=== PATIENT | female | born 1980 | race Caucasian/White ===

== ENCOUNTER 2021-07-27 09:16 | Outpatient (CLI) | payer MEDICARE, MEDICAID, SELFPAY ==
[2021-07-27] MEDS: Albuterol HFA 18 GM 200 PUFF INH IH (11:24)
[2021-07-27] MEDS: Inhaler, Assist Device 1 EACH MC (11:24)
--- NOTE | 2021-08-11 06:28 | W.PFT ---
Date of service: 06/27/21 Time of Service: 10:14 Pulmonary Function Test Result Requesting Provider Ken Ann Indications: Dyspnea Interpretation Spirometry: There is no airflow obstruction. There is no significant bronchodilator effect. Lung Volumes: Lung volumes are normal Diffusion Capacity: Diffusion is normal Airway Pressure: Airways resistance is normal. Impression Normal pulmonary function test Clinical Correlation therefore is recommended.
== END 2021-07-27 09:17 | disposition home or self-care (01) ==
LOC: RT 09:22
PROVIDERS: Visit Provider Surgery
DX: R06.09 Other forms of dyspnea (principal); Z86.79 Personal history of other diseases of the circulatory system; Z82.5 Family history of asthma and other chronic lower respiratory diseases
CPT/HCPCS: 94060; 94726; 94729

== ENCOUNTER 2022-02-27 15:48 | Outpatient (REF) | payer MEDICARE, MEDICAID, SELFPAY ==
--- OUTSIDE RECORDS SUMMARY | 2022-02-27 15:51 | XMS_ITS ---
:1980 Author Care Team Providers Name Role Phone BEATRIZ BUTLER Primary Care Provider [phone] MARY ELLEN RAVI MD General Surgeon [phone] Allergies Code Code System Name Reaction Severity Status Onset Adhesive Tape ? ? Active ? Bleach (Sodium ? ? Active ? Hypochlorite) 4053 RxNorm Erythromycin Base ? ? Active ? Fish Containing ? ? Active ? Products 6496698 RxNorm Latex ? ? Active ? 449646 RxNorm Milk ? ? Active ? Penicillins ? ? Active ? 5607590 RxNorm Trintellix Itching Moderate to Active ? Severe Medications Name Status Start Date Stop Date ? ? Adderall XR 15 mg capsule,extended release Completed 11/0308/31/2010 1 (one) Capsule ER 24HR: QD Advair HFA 115 mcg-21 mcg/actuation aerosol inhaler Completed ? 12/06/2020 Inhale 2 puffs twice a day by inhalation route for 30 days. albuterol sulfate Completed ? 01/06/2020 one inhalation every 4 hours as needed. albuterol sulfate 0.083 % nebu Completed ? 0 03/11/2020 albuterol sulfate 2.5 mg/3 mL (0.083 %) solution for nebulizatio n Active ? Not available 3 mL nebulization q4-6h PRN cough albuterol sulfate HFA 90 mcg/actuation aerosol inhaler Active ? Not available Inhale 2 puffs every 4-6 hours by inhalation route for 30 days. Maryam Allergy Completed ? 08/07/2021 amlodipine 2.5 mg tablet Completed 08/06/2014 014 1 (one) Tablet Tablet: daily azithromycin 250 mg tablet Completed ? 07/24 Bactrim DS 800 mg-160 mg tablet Completed ? 01/10/2022 1 (one) Tablet: BID for 3 days benzonatate 200 mg capsule Completed ? 08/17 Take 1 capsule 3 times a day by oral route for 10 days. cefuroxime axetil 250 mg tablet Completed 12/17/2016 12/24/2016 1 (one) Tablet: bid - twice daily cefuroxime axetil 500 mg tablet Completed ? 12/16/2019 Celexa 20 mg tablet Completed 11/03/2009 08/31/2010 1 (one) Tablet: daily cephalexin 250 mg capsule Completed 12/01/20142014 1 (one) Capsule: every 6 hours cephalexin 500 mg tablet Completed ? 022 1 (one) Tablet QID x 7 days cholecalciferol (vitamin D3) 50 mcg (2,000 unit) tablet Active ? Not available Take 1 tablet every day by oral route for 90 days. Cipro 250 mg tablet Completed ? 07/06/2021 Take 1 tablet twice a day by oral route for 3 days. ciprofloxacin 500 mg tablet Completed ? 12/29 1 (one) Tablet: every 12 hours x 5 days Cleocin HCl 300 mg capsule Completed 12/05/200912/12 1 (one) Capsule: daily clindamycin 2 % vaginal cream Completed 07/05/2014 1 (one) Cream: qhs - at bedtime clindamycin HCl 150 mg capsule Completed ? 0 11/14/2018 Take 1 capsule every 6 hours by oral route for 10 days. clotrimazole Completed ? 05/25/2019 2% cream clotrimazole 1 % topical cream Completed ? 0 03/27/2021 APPLY TO THE AFFECTED area x BID x 5 days Compazine 10 mg tablet Completed 01/15/2015 6 1 (one) Tablet Tablet: three times daily, as needed cyclobenzaprine Completed ? 03/25/2018 10mg daily cyclobenzaprine 10 mg tablet Completed ? 05/2019 Take 1 tablet every day by oral route at bedtime for 6 days. Depo-Provera 150 mg/mL intramuscular suspension Completed 03/17/2009 03/17/2009 desvenlafaxine succinate ER 50 mg Completed ? 09/14/2019 tablet,extended release 24 hr DILT-XR 120 mg capsule, extended release Completed ? 11/05/2019 diltiazem CD 180 mg capsule,extended release 24 Completed ? 11/26/2019 hr diltiazem CD 240 mg capsule,extended release 24 hr Completed ? 12/16/2019 Take 1 capsule every day by oral route. diltiazem ER 240 mg capsule,24 hr,extended Active ? Not available release diltiazem hcl er 240 mg cp24 Completed ? 08/2020 doxycycline hyclate 100 mg tablet Completed 12/28/2014 01/07/2015 1 (one) Tablet: every 12 hours Effexor XR 37.5 mg capsule,extended release Completed 04/0105/08/2006 1 (one) Cap SR 24HR: Daily Effexor XR 75 mg capsule,extended release Completed ? 12/28/2020 Take 1 capsule every day by oral route for 90 days. Estrace 0.01% (0.1 mg/gram) vaginal cream Completed 200807/27/200910/01 applicator(s): shoshana famotidine 40 mg tablet Completed ? 10/16/19 Take 1 tablet twice a day by oral route for 30 days. Fioricet 50 mg-300 mg-40 mg capsule Completed 11/03/2015 11/18/2015 1 (one) Capsule: every four hours, as needed for headache Flagyl 375 mg capsule Completed 03/11/2012 03/18/2012 1 Capsule: tid - three times a day Flonase Completed 09/15/2021 10/05/2021 Flovent Diskus 100 mcg/actuation powder for inhalation Completed 03/25/2012 03/25/2012 1 Aero Pow Br Act: bid - twice daily fluconazole 150 mg tablet Active ? Not av ailable Take 1 tablet every other day by oral route for 2 days. fluticasone 100 mcg-salmeterol 50 mcg/dose blistr powdr for inha lation Active ? Not available INHALE ONE PUFF BY MOUTH TWICE A DAY fluticasone propionate 50 mcg/act susp Completed ? 03/11/2020 fluticasone propionate 50 mcg/actuation nasal spray,suspension A ctive ? Not available [place] 2 sprays twice a day by intranasal route as needed for 30 days. gabapentin 600 mg tablet Active ? Not eliseo ilable Gardasil (PF) [id number]/0.5mL intramuscular prince spension Completed 05/11/2008 08/12/2008 1 (one) INJECTION: Once Guaifenesin AC 10 mg-100 mg/5 mL oral liquid Completed 03/11/2012 5-10 ml Syrup: every 4 to 6 hours as needed for cough hydrocodone 5 mg-acetaminophen 325 mg tablet Completed 08/201301/09/2013 1 (one) Tablet: every four to six hours as needed hydrocortisone acetate 25 mg rectal suppository Unknown ? Not available Insert 1 suppository 4 times a day by rectal route for 7 days. hydroxyzine pamoate Completed ? 12/12/2020 25mg po at HS as needed hydroxyzine pamoate 25 mg capsule Completed ? 12/16/2019 Imitrex 25 mg tablet Completed 11/29/2010 12/13/2010 1 (one) Tablet: daily as needed Keflex 500 mg capsule Completed ? 01/06/2019 1 Capsule every 6 hours for 5 days levothyroxine 100 mcg tablet Completed ? 03/2021 Take 1 tablet every day by oral route for 90 days. levothyroxine 112 mcg tablet Active ? Not available Take 1 tablet every day by oral route for 90 days. levothyroxine 125 mcg tablet Active ? Not available Take 1 tablet every day by oral route for 30 days. levothyroxine 137 mcg tablet Completed ? 05/2022 Take 1 tablet every day by oral route for 90 days. levothyroxine 88 mcg tablet Completed ? 03/30 levothyroxine sodium 112 mcg tabs Completed ? 04/15/2020 1 tablet po daily Lice Treatment (permethrin) 1 % topical liquid Completed 0 11/15/2011 03/11/2012 1 Lotion: as needed lidocaine 5 % topical ointment Active ? N ot available APPLY TO AFFECTED AREA(S) BY TOPICAL ROUTE 1-4 TIMES DAILY N EEDED Lidocaine Viscous 2 % mucosal solution Completed 1 10/05/2011 15 Milliliter(s): every four hours, as needed Loestrin Fe 10/19 (28-Day) 1 mg-20 mcg (21)/75 mg (7) tablet Completed 08/21/2013 08/21/2013 1 Tablet: daily loratadine Completed ? 10/06/2020 loratadine 10 mg tablet Completed 02/06/2017 02/16/20 17 1 (one) Tablet: daily lorazepam 1 mg tablet Completed 01/17/2016 01/17/2016 1 (one) Tablet: two times daily, as needed Macrobid 100 mg capsule Completed ? 01/11/20 22 1 Capsule: every 12 hours meloxicam 15 mg tablet Completed 08/31/2010 0 1 (one) Tablet: daily, as needed methylphenidate 20 mg tablet Active 07/06/2021 Not available Take 1 tablet twice a day by oral route. methylphenidate hydrochloride 20 mg tabs Active ? Not available metoprolol succinate ER 25 mg tablet,extended Active ? Not available release 24 hr Metrogel Vaginal 0.75 % Completed 12/18/2013 12/24/19 14 1 (one) Applicatorful: at bedtime metronidazole 500 mg tablet Completed ? 02/2022 1 (one) Tablet: two times daily for 7 days nabumetone 500 mg tablet Completed 01/17/2010 010 1 (one) Tablet: two times daily, as needed for ankle pain naproxen 375 mg tablet Completed 02/17/2014 4 1 (one) Tablet Tablet: every six hours, as needed nifedipine 10 mg capsule Completed ? 018 Take 1 capsule every day by oral route. NuvaRing 0.12 mg-0.015 mg/24 hr vaginal Completed 03/17/20 09 03/17/2009 1 (one) Ring: every month nystatin 100,000 unit/gram topical cream Completed 011 11/15/2011 apply Cream: three times daily nystatin 100,000 unit/gram topical powder Active ? Not available APPLY TO THE AFFECTED AREA 2 TIMES PER DAY nystatin 100,000 unit/mL oral suspension Completed 014 02/25/2014 1 (one) Teaspoon: qid - four times a day omeprazole 40 mg capsule,delayed release Completed ? 10/05/2021 TAKE 1 CAPSULE BY MOUTH ONCE DAILY ondansetron HCl 4 mg tablet Active ? Not available Ortho Evra 150 mcg-35 mcg/24 hr transdermal patch Completed 02/21/2010 08/31/2010 1 Patch WK: QW oxycodone-acetaminophen 5 mg-325 mg tablet Completed 04/0905/15/2016 1 (one) Tablet: Every six hours, as needed pantoprazole 40 mg tablet,delayed release Active ? Not available Take 1 tablet every day by oral route for 90 days. Phenergan 25 mg rectal suppository Completed 11/03/2009 12/05/2009 1 (one) Suppository: as needed polyethylene glycol 3350 17 gram/dose oral powder Active ? Not available TAKE 17 GRAMS ONCE DAILY FOR 90 DAYS polymyxin B sulfate 10,000 unit-trimethoprim 1 Completed ? 07/07/2019 mg/mL eye drops prednisone 10 mg tablet Completed 06/07/2016 06/12/20 16 1 (one) Tablet: See comments prednisone 20 mg tablet Completed 05/01/2017 05/10/20 17 1 (one) Tablet: qam - every morning Prilosec OTC 20 mg tablet,delayed release Completed 200703/04/2008 1 (one) Tablet DR: daily Pyridium 200 mg tablet Completed 05/03/2016 6 1 (one) Tablet: every eight hours, as needed quetiapine fumarate 50 mg tabs Completed ? 0 03/11/2020 Risperdal 1 mg tablet Completed 10/22/2014 11/10/2014 1 (one) Tablet: at bedtime rizatriptan 10 mg tablet Active ? Not eliseo ilable Seroquel 100 mg tablet Active 10/05/2021 Not avail able Take 1 tablet every day by oral route at bedtime. Seroquel 25 mg tablet Completed 09/26/2011 03/11/2012 1 (one) Tablet: as needed Seroquel 50 mg tablet Completed ? 10/05/2021 Take 1 tablet every day by oral route for 90 days. Singulair 10 mg tablet Completed 11/03/2009 0 1 (one) Tablet: daily Symbicort 160 mcg-4.5 mcg/actuation HFA aerosol Completed ? 04/14/2020 inhaler Terazol 3 0.8 % vaginal cream Completed 05/06/2013 1 Cream: QHS vaginally x 3 nights Terazol 7 0.4 % vaginal cream Completed 01/16/2007 1 (one) Applicator(s): QHS / HS Topamax 25 mg tablet Completed 11/10/2014 01/18/2015 one Tablet: at bedtime tramadol 50 mg tablet Completed 07/05/2014 07/10/2014 1 (one) Tablet: every 8 hours as needed trazodone 50 mg tablet Completed 05/08/2006 7 1 (one) Tablet: qhs / HS Trintellix 10 mg tablet Completed ? 07/06/20 21 Take 1 tablet every day by oral route for 30 days. venlafaxine ER 150 mg capsule,extended release Completed ? 12/16/2019 24 hr venlafaxine hcl er 150 mg cp24 Completed ? 0 03/11/2020 venlafaxine hydrochloride er 75 mg cp24 Completed ? 03/11/2020 Vistaril 50 mg capsule Completed 10/30/2007 8 1 (one) Cap: QHS / HS Wellbutrin XL 150 mg 24 hr tablet, extended release Completed 10/09/2005 01/11/2006 1 (one) Tab SR 24HR: BID Xopenex HFA 45 mcg/actuation aerosol inhaler Completed 06/25/2012 1-2 (one to two) Puff(s): Every 4 to 6 hours as needed Xyzal Completed ? 06/07/2020 Michelle (28) 3 mg-0.03 mg tablet Completed 11/21/2004 04/29/2006 1 (one) Tablet: QD REBECCA (28) 3 mg-0.02 mg tablet Completed 06/26/200611/2005 1 Tablet: daily Zantac 150 mg tablet Completed 05/14/2011 08/12/2011 1 Tablet: bid - twice daily Zoloft 100 mg tablet Completed 04/14/2008 08/12/2008 1 (one) Tablet: Daily zolpidem 10 mg tablet Active ? Not availa ble zolpidem 5 mg tablet Completed ? 06/08/2019 Take 1 tablet every day by oral route. zolpidem tartrate 10 mg tabs Completed ? 08/2020 Problems Name Status Onset Date Source ? Localized Enlarged Lymph Nodes Unknown 06/22/2019 ? Palpitations Unknown 09/14/2019 ? Multinodular Goiter Unknown 10/06/2019 ? Cervical Lymphadenopathy Active 10/06/2019 ? Nausea Unknown 04/09/2020 ? Postoperative Hypothyroidism Active 04/14/2020 ? Plantar Fasciitis Active 07/30/2020 ? Candidiasis of Skin Active 12/28/2020 ? Paroxysmal Supraventricular Tachycardia Active 01/10/20 21 ? Pleural Effusion Active 01/09/2021 ? Sleep Disorder Active 01/09/2021 ? Malaise and Fatigue Active 01/09/2021 ? Dyspnea at Rest Active 01/09/2021 ? Persistent Cough Active 01/09/2021 ? Cough Unknown 02/23/2021 ? Gastro-esophageal Reflux Disease with Esophagitis Active 10/16/2021 ? Streptococcal Sore Throat Unknown ? Histor y Psychoactive Substance Abuse Active ? His tory Depressive Disorder Active ? History Attention Deficit Hyperactivity Disorder Active ? History Migraine Unknown ? History Migraine with Aura Active ? History Raynaud's Disease Active ? History Allergic Rhinitis Unknown ? History Posterior Rhinorrhea Unknown ? History Mild Intermittent Asthma Active ? History Acute Exacerbation of Asthma Unknown ? His tory Urinary Tract Infectious Disease Unknown ? History Cervical Intraepithelial Neoplasia Grade 1 Unknown ? History Cervical Intraepithelial Neoplasia Grade 2 Active ? History Backache Unknown ? History Tremor Unknown ? History Dysuria Unknown ? History Abdominal Pain Unknown ? History Contusion of Back Unknown ? History Exposure to Viral Hepatitis Unknown ? Hist ory High Risk Heterosexual Behavior Unknown ? History Venereal Disease Screening Unknown ? Histo ry Cytologic Finding Unknown ? History Pelvic and Perineal Pain Unknown ? History Lesion of Oral Mucosa Unknown ? History Amblyopia of Right Eye Unknown ? History Procedure by Method Unknown ? History Follow-up Visit Unknown ? History Procedures Date Name Performed by ? 04/04/2016 [facility] Uterus 250 g or Less Information not available Notes: Total laparoscopic hysterectomy, bilateral salpingectomy, USVVS: LILIA II, Uterine Prolapse 06/17/2015 Conization of Cervix Information not eliseo ilable Notes: Cone biopsy: LILIA 2 with clear m argins. 02/25/2013 Diag Laparo Separate Proc Information no t available Notes: Lysis of adhesions 06/26/2010 Rhinoplasty Information not avai lable 09/30/2004 Delivery Information not avai lable Notes: 02/09/2008 elec repeat; 08/15/20 11 elec repeat with T/L ? Removal of Thyroid Information not avai lable ? Tonsilectomy/adenoids Information not av ailable ? Hernia Repair Information not avai lable ? Leep Information not avai lable Notes: 08/16/08 with IUD removal 01/06/2019 US, Echocardiogram [facility]Internal[facility] [address] [place], [place] [id number] (Work Place) 05/25/2019 US, Head + Neck, Soft Tissue [facility] Radiology (Internal) [address] [place] [address] (Work Place) 06/03/2019 CT, Neck, Soft Tissue, W/ Contrast [facility] Radiology (Internal) [address] [place] [address] (Work Place) 09/14/2019 Holter Monitor [facility] Cardio pulmonary [address] [place] [address] (Work Place) 01/09/2021 CT, Chest, W/wo Contrast [facility] Radiology (Internal) [address] [place] [address] (Work Place) 01/20/2021 CT, Chest, W/ Contrast [facility] pital Radiology (Internal) [address] [place] [address] (Work Place) 08/18/2021 CT, Chest, W/ Contrast [facility] Radiology (Internal) [address] [place] [address] (Work Place) 08/07/2021 XR, Foot, 3 or More View [facility] (Internal) [address] [place] [address] (Work Place) 01/31/2022 XR, Ankle, 3 or More View [facility] Radiology (Internal) [address] [place] [address] (Work Place) 02/01/2022 XR, Esophagram [facility] [address] [place] [address] (Work Place) 02/09/2022 XR, Esophagram Xray [facility] [address] [place] [address] (Work Place) Results Lab Results Date Name Specimen Result Interpretation Description Value Range Status Address ? 01/15/2022 TSH, Serum S Low Tsh 0.01 uIU/mL 0.36-3.74 F inal [place] or Plasma uIU/mL [facility] L ab (Internal) : [address] t 01/15/2022 T4, Free, S High Ft4 1.65 NG/dL 0.76-1.46 Fin [facility] Serum NG/dL [facility] L ab (Internal) : [address] 11/13/2021 Urinalysis, ? Color Yellow ? ? P _nc Primary Dipstick, Care Reflex [place] ns: [address], [place] ? ? ? Appeara Cloudy ? ? P_nc Kathy mechelle nce Care [place] ns: [address], [place] ? ? ? Glucose Normal ? ? P_nc Kathy mechelle Care [place] ns: [address], [place] ? ? ? Bilirub Small ? ? P_nc Kathy mechelle in Care [place] ns: [address], [place] ? ? ? Ketones Trace ? ? P_nc Kathy mechelle Care [place] ns: [address], [place] ? ? ? Specifi 1.030 ? ? P_nc Kathy mechelle c Care Webb [place] [facility] ns: [address], [place] ? ? ? Blood Negative ? ? P_nc Kathy mechelle Care [place] ns: [address], [place] ? ? ? Ph 5.0 ? ? P_nc Prima ry Care [place] ns: [address], [place] ? ? ? Protein 1+ ? ? P_nc Kathy mechelle Care [place] ns: [address], [place] ? ? ? Urobili 1 ? ? P_nc Kathy mechelle yañezen Care [place] ns: [address], [place] ? ? ? Nitrite positive ? ? P_nc P rimary Care [place] ns: [address], [place] ? ? ? Leukocy Trace ? ? P_nc Kathy mechelle te Care Esterase [place] ns: [address], [place] 11/08/2021 BMP, Serum S ? g/r 98 mg/dL 74-106 Final [place] or Plasma mg/dL [facility] L ab (Internal) : [address] ? ? S ? Bun 16 mg/dL 7-18 mg/dL Final Nort h [facility] L ab (Internal) : [address] ? ? S ? Crea 0.7 mg/dL 0.6-1.0 Final [place] mg/dL [facility] L ab (Internal) : [address] ? ? S ? Ca 8.9 mg/dL 8.5-10.1 Final [place] mg/dL [facility] L [facility] (Internal) : [address] ? ? S ? Na 138 mmol/L 136-145 Final [place] mmol/L [facility] L [facility] (Internal) : [address] ? ? S ? K 3.9 mmol/L 3.5-5.1 Final [place] mmol/L [facility] L [facility] (Internal) : [address] ? ? S ? Cl 103 mmol/l 98-107 Final [place] mmol/l [facility] L [facility] (Internal) : [address] ? ? S ? Tco2 29.4 mmol/L 21.0-32.0 Final No rth mmol/L [facility] L [facility] (Internal) : [address] t 11/08/2021 CBC W/ Auto BLD ? Wbc 7.7 10*3/uL 5.0-10.0 F inal [place] Diff 10*3/uL [facility] L [facility] (Internal) : [address] t ? ? BLD ? Rbc 4.61 4.10-5.30 Final [place] 10*6/uL 10*6/uL [facility] L [facility] (Internal) : [address] t ? ? BLD ? Hgb 13.2 g/dL 12.0-16.0 Final Nort h g/dL [facility] L ab (Internal) : [address] t ? ? BLD ? Hct 39.5 % 37.0-47.0 % Final [facility] L ab (Internal) : [address] t ? ? BLD ? Mcv 85.7 fL 80.0-96.0 Final [facility] L ab (Internal) : [address] t ? ? BLD ? Mch 28.6 pg 26.0-32.0 Final [facility] L ab (Internal) : [address] ? ? BLD ? Mchc 33.4 g/dL 31.0-35.0 Final Nort h g/dL [facility] L [facility] (Internal) : [address] [place] ? ? BLD ? Rdw 13.0 % 11.5-14.5 % Final [facility] ab (Internal) : [address] [place] ? ? BLD ? Plt 300 10*3/uL 130-450 [facility] L [facility] (Internal) : [address] [place] ? ? BLD ? Anc 5.56 ? Final [place] 10*3/uL [facility] ab (Internal) : [address] , [place] ? ? BLD High Nlr 4.12 0.00-3.20 Final [facility] ab (Internal) : [address] [place] ? ? BLD ? Neutro 72.2 % 40.0-75.0 % Final [facility] ab (Internal) : [address] ? ? BLD Low Lymph 17.5 % 20.0-50.0 % Final [facility] ab (Internal) : [address] [place] ? ? BLD ? Stanton 7.8 % 2.0-10.0 % Final [facility] ab (Internal) : [address] [place] ? ? BLD ? Eos 1.4 % 1.0-6.0 % Final [facility] ab (Internal) : [address] ? ? BLD ? Baso 0.5 % 0.0-1.0 % Final [facility] ab (Internal) : [address] ? ? BLD ? Ig 0.6 % 0.0-0.9 % Final [facility] ab (Internal) : [address] t 11/08/2021 Culture UR ? Final microbiolog ? Final [place] ([place] y results Countr y Count) Hospital Lab Urine (Internal) : [address] t 11/08/2021 HSV (1+2) MISC ? Hsv 1 negative negative Final [place] DNA, Qual, DNA Countr y PCR, Result Hospital L ab Unspecified (Inte rnal): Specimen [address] ? ? MISC ? Hsv 2 negative negative Final [place] DNA Country Result Hospital L ab (Internal) : [address] [facility] t 11/08/2021 CT RNA, MISC ? Chlamyd negative negative Final [place] Qual, PCR, ia Countr y Unspecified Result Hospi nikos Lab Specimen (Interna l): [address] [facility] t ? ? MISC ? GC negative negative Final [place] Result [facility] L ab (Internal) : [address] [facility] 10/13/2021 T4, Free, S High Ft4 1.54 NG/dL 0.76-1.46 Fin al [place] Serum NG/dL [facility] L ab (Internal) : [address] [facility] 10/13/2021 TSH, Serum S Low Tsh 0.03 uIU/mL 0.36-3.74 F inal [place] or Plasma uIU/mL [facility] L ab (Internal) : [address] [facility] 10/13/2021 Venipunctur Blood ? Locatio Right ? ? P_nc Primary e venous n Antecubital Care [place] ns: [address], [place] ? ? Blood ? Needle 21g ? ? P_nc Prim shiva venous Vacutainer Care [place] ns: [address], [place] ? ? Blood ? Number 1 ? ? P_nc Prim shiva venous of Care Attempts [place] [facility]: [address], [place] ? ? Blood ? Success Yes ? ? P_nc Kathy mechelle venous ful Care [place] ns: [address], [place] ? ? Blood ? Dressin Pressure ? ? P_nc P rimary venous g Band-aid Care Applied [place] [facility] ns: [address], [place] ? ? Blood ? Initial DG ? ? P_nc Kathy mechelle venous s Care [place] ns: [address], [place] 08/17/2021 Thyroid S Low Tsh 0.09 uIU/mL 0.36-3.74 Nena l [place], uIU/mL [facility] Serum Hospital L ab (Internal) : [address] [facility] 08/17/2021 T4, Free, S High Ft4 1.68 NG/dL 0.76-1.46 Fin al [place] Serum NG/dL [facility] (Internal) : [address] t 08/17/2021 Venipunctur ? Locatio Right ? ? P_nc Primary e n Antecubital Care [place] [facility] ns: [address], [place] ? ? ? Needle 21g ? ? P_nc Prim shiva Vacutainer Care [place] [facility] ns: [address], [place] ? ? ? Number 1 ? ? P_nc Prim shiva of Care Attempts [place] [facility] ns: [address], [place] ? ? ? Success Yes ? ? P_nc Kathy mechelle ful Care [place] [facility] ns: [address], [place] ? ? ? Dressin Pressure ? ? P_nc P rimary g Band-aid Care Applied [place] [facility]: [address], [place] ? ? ? Initial HJ ? ? P_nc Kathy min s Care [place] [facility] ns: [address], [place] 05/22/2021 Hepatitis C S ? Hep C negative negative Nena Pat[facility] Virus Ab, Ab W Rfx Count ry Serum PCR Hospital L ab (Internal) : [address] 05/22/2021 HIV (1+2) S ? HIV 1/2 negative negative Nena Pat[facility] Ab Screen, Antigen Count ry Serum and Hospital L ab Antibody (Interna l): [address] t 05/08/2021 Thyroid S High Tsh 5.41 0.47-4.68 Final No rth [place], u[IU]/mL u[IU]/mL Coun try Serum Hospital L ab (Internal) : [address] t 05/08/2021 T4, Free, S ? Ft4 1.11 NG/dL 0.78-2.19 Fin al [place] Serum NG/dL [facility] L ab (Internal) : [address] t 02/23/2021 CBC W/ Auto BLD ? Wbc 6.3 10*3/uL 5.0-10.0 F inal [place] Diff 10*3/uL [facility] L ab (Internal) : [address] t ? ? BLD ? Rbc 4.87 4.10-5.30 Final [place] 10*6/uL 10*6/uL [facility] (Internal) : [address] , [place] ? ? BLD ? Hgb 13.9 g/dL 12.0-16.0 Final Nort h g/dL [facility] L ab (Internal) : [address] , [place] ? ? BLD ? Hct 43.0 % 37.0-47.0 % Final [facility] L ab (Internal) : [address] ? ? BLD ? Mcv 88.3 fL 80.0-96.0 Final [facility] L ab (Internal) : [address] , [place] ? ? BLD ? Mch 28.5 pg 26.0-32.0 Final [facility] L ab (Internal) : [address] , [place] ? ? BLD ? Mchc 32.3 g/dL 31.0-35.0 Final Nort h g/dL [facility] L ab (Internal) : [address] ? ? BLD ? Rdw 13.2 % 11.5-14.5 % Final [facility] ab (Internal) : [address] ? ? BLD ? Plt 296 10*3/uL 130-450 Final Nort h 10*3/uL [facility] L ab (Internal) : [address] ? ? BLD ? Anc 3.95 ? Final [place] 10*3/uL [facility] L ab (Internal) : [address] ? ? BLD ? Nlr 2.28 0.00-3.20 Final [facility] ab (Internal) : [address] ? ? BLD ? Neutro 62.6 % 40.0-75.0 % Final Nort [facility] Hospital L ab (Internal) : [address] [place] ? ? BLD ? Lymph 27.4 % 20.0-50.0 % Final [facility] ab (Internal) : [address] [place] ? ? BLD ? Stanton 6.3 % 2.0-10.0 % Final [facility] ab (Internal) : [address] ? ? BLD ? Eos 2.9 % 1.0-6.0 % Final [facility] L ab (Internal) : [address] t ? ? BLD ? Baso 0.5 % 0.0-1.0 % Final [facility] L ab (Internal) : [address] t ? ? BLD ? Ig 0.3 % 0.0-0.9 % Final [facility] L ab (Internal) : [address] 02/23/2021 TSH, Serum S High Tsh 8.59 0.47-4.68 Final North or Plasma u[IU]/mL u[IU]/mL [facility] L ab (Internal) : [address] 02/23/2021 CMP, Serum S High g/r 113 mg/dL 74-106 Final North or Plasma mg/dL [facility] L ab (Internal) : [address] t ? ? S ? Bun 17 mg/dL 7-17 mg/dL Final Nort h [facility] L ab (Internal) : [address] t ? ? S ? Crea 0.70 mg/dL 0.52-1.04 Final Nor th mg/dL [facility] L ab (Internal) : [address] t ? ? S ? Ca 9.4 mg/dL 8.4-10.2 Final North mg/dL [facility] L ab (Internal) : [address] t ? ? S ? Na 143 mmol/L 137-145 Final North mmol/L [facility] L ab (Internal) : [address] t ? ? S ? K 3.7 mmol/L 3.5-5.1 Final North mmol/L [facility] L ab (Internal) : [address] t ? ? S High Cl 108 mmol/L 98-107 Final North mmol/L [facility] L ab (Internal) : [address] t ? ? S ? Tco2 23.0 mmol/L 22.0-30.0 Final No rth mmol/L [facility] L ab (Internal) : [address] t ? ? S ? Tp 7.4 g/dL 6.3-8.2 Final North g/dL [facility] L ab (Internal) : [address] t ? ? S ? Alb 4.0 g/dL 3.5-5.0 Final [place] g/dL [facility] L ab (Internal) : [address] t ? ? S ? Tbil 0.3 mg/dL 0.2-1.3 Final [place] mg/dL [facility] L ab (Internal) : [address] t ? ? S ? Alp 86 U/L 50-136 U/L [facility] L ab (Internal) : [address] t ? ? S ? Alt 17 U/L 9-52 U/L [facility] (Sgpt) [facility] L ab (Internal) : [address] t ? ? S High Ast 52 U/L 14-36 U/L [facility] (Sgot) [facility] L ab (Internal) : [address] 02/23/2021 T4, Free, S ? Ft4 0.98 NG/dL 0.78-2.19 [facility] Serum NG/dL [facility] L ab (Internal) : [address] 02/23/2021 Alpha-1-Ant S ? Alpha 1 124 mg/dL 90-200 [facility] itrypsin Antitryp mg/dL Countr y (Aat), QN, sin Hospit al Lab Serum (Internal) : [address] 02/23/2021 T3, Total, S ? T3, 137 NG/dL 97-169 [facility] Serum Total NG/dL [facility] L ab (Internal) : [address] 02/23/2021 Tick-borne BLD ? Babesia negative negative [facility] ([facility] : [address] t ? ? BLD ? Babesia negative negative Final Nort h Duncani [facility] L ab (Internal) : [address] t ? ? BLD ? Babesia negative negative Final Nort h divergen [facility] L ab (Internal) : [address] t ? ? BLD ? Anaplas negative negative Final Nort h ma [facility] Lab ophilum (Internal ): [address] t ? ? BLD ? Pee negative negative Final Nort h ia [facility] Lab sis (Internal) : [address] t ? ? BLD ? Pee negative negative Final Nort h ia [facility] Lab canis (Internal) : [address] t ? ? BLD ? Pee negative negative Final Nort h ia [facility] Lab ensis (Internal) : [address] ? ? BLD ? B. negative negative Final North [place] [facility] i PCR, B Hospital Lab (Internal) : [address] 02/23/2021 Borrelia S ? Lyme negative negative Final North [place] Antibody Cou ntry Ab, [facility] Lab Immunoassay (Inte rnal): , Serum [address] 12/12/2020 D-dimer, PLASMA ? Dimq 0.40 mg/L 0.00-0.50 Final North Quant, mg/L [facility] L ab (Internal) : [address] 12/12/2020 BNP (B-type S ? 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 Locatio Left ? ? P_nc Primary e n Antecubital Care [place]l [place] ns: [address], [place] ? ? ? Needle 21g ? ? P_nc Prim shiva Vacutainer Care [place]: [address], [place] ? ? ? Number 1 ? ? P_nc Prim shiva of Care Attempts [place] rlea ns: [address], [place] ? ? ? Success Yes ? ? P_nc Kathy mechelle ful Care [place] ns: [address], [place] ? ? ? Dressin Pressure ? ? P_nc P rimary g Band-aid Care Applied [place] beth ns: [address], [place] ? ? ? Initial LMK ? ? P_nc Kathy mechelle s Care [place] ns: [address], [place] 10/04/2020 CBC W/ Auto BLD ? Wbc 6.6 10*3/uL 5.0-10.0 F inal [place] Diff 10*3/uL [facility] L ab (Internal) : [address] t ? ? BLD ? Rbc 4.88 4.10-5.30 Final [place] 10*6/uL 10*6/uL [facility] L ab (Internal) : [address] ? ? BLD ? Hgb 14.0 g/dL 12.0-16.0 Final Nort h g/dL [facility] L ab (Internal) : [address] ? ? BLD ? Hct 43.2 % 37.0-47.0 % Final [facility] L ab (Internal) : [address] ? ? BLD ? Mcv 88.5 fL 80.0-96.0 Final [facility] L ab (Internal) : [address] ? ? BLD ? Mch 28.7 pg 26.0-32.0 Final [facility] L ab (Internal) : [address] ? ? BLD ? Mchc 32.4 g/dL 31.0-35.0 Final Nort h g/dL [facility] L ab (Internal) : [address] ? ? BLD ? Rdw 13.2 % 11.5-14.5 % Final [facility] L ab (Internal) : [address] ? ? BLD ? Plt 253 10*3/uL 130-450 Final Nort h 10*3/uL [facility] L ab (Internal) : [address] ? ? BLD ? Anc 4.18 ? Final [place] 10*3/uL [facility] L ab (Internal) : [address] ? ? BLD ? Nlr 2.49 0.00-3.20 Final [facility] L ab (Internal) : [address] t ? ? BLD ? Neutro 63.5 % 40.0-75.0 % Final Nort [facility] Hospital L ab (Internal) : [address] ? ? BLD ? Lymph 25.5 % 20.0-50.0 % Final [facility] (Internal) : [address] t ? ? BLD ? Stanton 5.6 % 2.0-10.0 % Final [facility] L ab (Internal) : [address] t ? ? BLD ? Eos 3.9 % 1.0-6.0 % Final [facility] Hospital L ab (Internal) : [address] t ? ? BLD ? Baso 0.6 % 0.0-1.0 % Final [facility] Hospital L ab (Internal) : [address] t ? ? BLD ? Ig 0.9 % 0.0-0.9 % Final [facility] Hospital L ab (Internal) : [address] t 10/04/2020 CMP, Serum S ? g/r 100 mg/dL 74-106 Final North or Plasma mg/dL [facility] L [facility] (Internal) : [address] t ? ? S ? Bun 15 mg/dL 7-17 mg/dL Final Nort h [facility] L ab (Internal) : [address] t ? ? S ? Crea 0.70 mg/dL 0.52-1.04 Final Nor th mg/dL [facility] L [facility] (Internal) : [address] t ? ? S ? Ca 8.9 mg/dL 8.4-10.2 Final North mg/dL [facility] L ab (Internal) : [address] t ? ? S ? Na 140 mmol/L 137-145 Final North mmol/L [facility] L ab (Internal) : [address] t ? ? S ? K 4.3 mmol/L 3.5-5.1 Final [facility] mmol/L [facility] L [facility] (Internal) : [address] t ? ? S ? Cl 103 mmol/L 98-107 Final North mmol/L [facility] L ab (Internal) : [address] t ? ? S ? Tco2 30.0 mmol/L 22.0-30.0 Final No rth mmol/L [facility] L ab (Internal) : [address] t ? ? S ? Tp 7.5 g/dL 6.3-8.2 Final [facility] g/dL [facility] [address] [facility] ? ? S ? Alb 4.1 g/dL 3.5-5.0 Final [place] g/dL [facility] (Internal[facility] : [address] [facility] ? ? S ? Tbil 0.2 mg/dL 0.2-1.3 Final [place] mg/dL [facility] L ab (Internal) : [address] ? ? S ? Alp 97 U/L 50-136 U/L Final [facility] L ab (Internal) : [address] t ? ? S ? Alt 18 U/L 9-52 U/L Final [place] (Sgpt) [facility] L ab (Internal) : [address] t ? ? S ? Ast 27 U/L 14-36 U/L Final [place] (Sgot) [facility] L ab (Internal) : [address] [facility] 10/04/2020 Troponin I, S ? Trop <0.06 NG/mL 0.00-0.06 Final [place] Serum or NG/mL [facility] L ab (Internal) : [address] [facility] 10/04/2020 Troponin I, S ? Trop <0.06 NG/mL 0.00-0.06 Final [place] Serum or NG/mL [facility] Plasma [facility] L ab (Internal) : [address] [facility] 10/04/2020 EKG Done by ? No ? ? ? N orth ED observat [facility] L ab recorded (Interna l): . [address] [facility] 09/20/2020 SARS CoV 2 SWAB ? 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 ? SWAB ? Perform the broad ? Final [facility] L ab (Internal) : [address] [facility] 07/27/2020 TSH, Serum S Low Tsh 0.42 0.47-4.68 Final [place] or Plasma u[IU]/mL u[IU]/mL [facility] Hospital L ab (Internal) : [address] [facility] 07/27/2020 BMP, Serum S ? g/r 105 mg/dL 74-106 Final North or Plasma mg/dL [facility] L [facility] (Internal) : [address] t ? ? S ? Bun 17 mg/dL 7-17 mg/dL Final Nort [facility] L [facility] (Internal) : [address] t ? ? S ? Crea 0.60 mg/dL 0.52-1.04 Final [facility] th mg/dL [facility] L ab (Internal) : [address] t ? ? S ? Ca 9.0 mg/dL 8.4-10.2 Final [facility] mg/dL [facility] L [facility] (Internal) : [address] t ? ? S ? Na 140 mmol/L 137-145 Final [place] mmol/L [facility] L ab (Internal) : [address] t ? ? S ? K 4.1 mmol/L 3.5-5.1 Final [place] mmol/L [facility] L ab (Internal) : [address] t ? ? S ? Cl 104 mmol/L 98-107 Final [place] mmol/L [facility] L ab (Internal) : [address] t ? ? S ? Tco2 27.0 mmol/L 22.0-30.0 Final No rth mmol/L [facility] L ab (Internal) : [address] [facility] [facility] T4, Free, S ? Ft4 1.08 NG/dL 0.78-2.19 Fin al [place] Serum NG/dL [facility] L ab (Internal) : [address] [facility] 07/18/2020 SARS CoV 2 SWAB ? 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 ? SWAB ? Perform the broad ? Final [facility] L ab (Internal) : [address] [facility] 06/13/2020 T4, Free, S ? Ft4 1.39 NG/dL 0.78-2.19 Fin al [place] Serum NG/dL [facility] L ab (Internal) : [address] [facility] 06/13/2020 TSH, Serum S Low Tsh 0.22 0.47-4.68 Final [place] or Plasma u[IU]/mL u[IU]/mL [facility] Hospital L ab (Internal) : [address] 06/13/2020 Hepatitis S ? Hepatit negative negative Nena l [place] Panel is a IgM Country (A+B+C), Ab, S Hospital Lab Acute, (Internal) : Serum [address] t ? ? S ? Hbs negative negative Final [place] Antigen, [facility] L ab (Internal) : [address] t ? ? S ? Hbc IgM negative negative Final Nort h Ab, S [facility] L ab (Internal) : [address] t ? ? S ? HCV Ab, negative negative Final Nort h S [facility] L ab (Internal) : [address], Jayeshdario nasra 06/13/2020 HIV (1+2) S ? HIV 1/2 negative negative Nena [facility] Ab Screen, Antigen Count ry Serum and Hospital L ab Antibody (Interna l): [address] nasra 04/14/2020 CBC W/ Auto BLD ? Wbc 6.3 10*3/uL 5.0-10.0 F inal [place] Diff 10*3/uL [facility] L ab (Internal) : [address] ? ? BLD ? Rbc 4.90 4.10-5.30 Final [place] 10*6/uL 10*6/uL [facility] L ab (Internal) : [address] ? ? BLD ? Hgb 14.1 g/dL 12.0-16.0 Final Nort h g/dL [facility] L ab (Internal) : [address] ? ? BLD ? Hct 42.3 % 37.0-47.0 % Final [facility] L ab (Internal) : [address] ? ? BLD ? Mcv 86.3 fL 80.0-96.0 Final [facility] L ab (Internal) : [address] ? ? BLD ? Mch 28.8 pg 26.0-32.0 Final [place] pg [facility] L ab (Internal) : [address], [place] ? ? BLD ? Mchc 33.3 g/dL 31.0-35.0 Final [facility] h g/dL [facility] Hospital L ab (Internal) : [address] ? ? BLD ? Rdw 12.4 % 11.5-14.5 % Final [facility] L ab (Internal) : [address] ? ? BLD ? Plt 282 10*3/uL 130-450 Final Nort h 10*3/uL [facility] Hospital L ab (Internal) : [address] ? ? BLD ? Anc 4.22 ? Final [place] 10*3/uL [facility] L ab (Internal) : [address] ? ? BLD ? Nlr 2.72 0.00-3.20 Final [facility] L ab (Internal) : [address] ? ? BLD ? Neutro 66.8 % 40.0-75.0 % Final [facility] Hospital L ab (Internal) : [address] ? ? BLD ? Lymph 24.6 % 20.0-50.0 % Final [facility] L ab (Internal) : [address] ? ? BLD ? Stanton 6.0 % 2.0-10.0 % Final [facility] L ab (Internal) : [address] ? ? BLD ? Eos 1.6 % 1.0-6.0 % Final [facility] L ab (Internal) : [address] ? ? BLD ? Baso 0.5 % 0.0-1.0 % Final [facility] L ab (Internal) : [address] ? ? BLD ? Ig 0.5 % 0.0-0.9 % Final [facility] Hospital L ab (Internal) : [address] t 04/14/2020 Calcium, S ? Ca 9.0 mg/dL 8.4-10.2 Final [place] Serum or mg/dL [facility] Hospital L ab (Internal) : [address] t 04/14/2020 TSH, Serum S Low Tsh 0.11 0.47-4.68 Final [place] or Plasma u[IU]/mL u[IU]/mL Cou ntry Hospital L ab (Internal) : [address] t 04/14/2020 T4, Free, S ? Ft4 1.80 NG/dL 0.78-2.19 Fin partha [place] Serum NG/dL [facility] L [facility] (Internal) : [address] t 04/14/2020 Vitamin D, S ? 25-Hydr <4.0 NG/mL ? Fin partha [place] 25-Hydroxy, oxy D2 Count ry Total, Hospital L ab Serum (Internal) : [address] t ? ? S ? 25-Hydr 34 NG/mL ? Final [place] oxy D3 [facility] L ab (Internal) : [address] t ? ? S ? 25-Hydr 34 NG/mL ? Final [place] oxy D Country Total Hospital L ab (Internal) : [address] t 04/14/2020 T3, Total, S ? T3, 152 NG/dL 97-169 Final [place] Serum Total NG/dL [facility] L ab (Internal) : [address] t 03/10/2020 SARS CoV 2 SWAB ? 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 ? SWAB ? Perform the broad ? Final [facility] L ab (Internal) : [address] t 01/06/2020 Rapid Flu NASAL ? Final microbiolog ? Final [place] (A+B) y results [facility] Hospital L ab (Internal) : [address] t 01/06/2020 SARS CoV 2 SWAB ? Sars-co nasopharynx ? 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 ? SWAB ? Sars-co undetected undetected Final [place] v-2 RNA [facility] Hospital L ab (Internal) : [address] t 10/29/2019 Rapid Strep ? Strep negative ? ? P_nc Primary Group a, Care Throat [place]/Orl ea ns: [address], [place] 10/27/2019 Hepatitis C S ? Hep C negative negative [facility] Virus Ab, Ab W Rfx Count ry Serum PCR Hospital L ab (Internal) : [address] 10/27/2019 HIV (1+2) S ? HIV 1/2 negative negative [facility] Ab Screen, Antigen Count ry Serum and Hospital L ab Antibody (Interna l): [address] 09/02/2019 Urinalysis, UR - UA-colo yellow pale yellow F inal [place] Dipstick, r Country Reflex Hospital L ab Micro (Internal) : [address] ? ? UR ABNORMAL UA-appe hazy clear Final [facility] Hospital L ab (Internal) : [address] ? ? UR - UA-spec 1.025 1.003-1.035 Final Nor th Grav [facility] Hospital L ab (Internal) : [address] ? ? UR - UA-pH 7.0 [pH] 4.6-8.0 Final [place] [pH] [facility] Hospital L ab (Internal) : [address] ? ? UR - UA-leuk negative negative Final Nort h Est [facility] Hospital L ab (Internal) : [address] ? ? UR - UA-nitr negative negative Final Nort h ite [facility] Hospital L ab (Internal) : [address] ? ? UR - UA-prot negative negative Final Nort h [facility] L ab (Internal) : [address] ? ? UR - UA-gluc negative negative Final Nort h [facility] Hospital L ab (Internal) : [address] ? ? UR ABNORMAL UA-keto 2+ negative Final Nort h ne [facility] L ab (Internal) : [address] ? ? UR - UA-urob normal normal Final [facility] L ab (Internal) : [address] ? ? UR - UA-bili negative negative Final Nort h [facility] L ab (Internal) : [address] ? ? UR - UA-bloo negative negative Final Nort h d [facility] L ab (Internal) : [address] 09/02/2019 CBC W/ Auto BLD - Wbc 6.8 10*3/uL 5.0-10.0 F inal [place] Diff 10*3/uL [facility] Hospital L ab (Internal) : [address] ? ? BLD - Rbc 4.83 4.10-5.30 Final [place] 10*6/uL 10*6/uL [facility] Hospital L ab (Internal) : [address] ? ? BLD - Hgb 14.4 g/dL 12.0-16.0 Final Nort h g/dL [facility] Hospital L ab (Internal) : [address] ? ? BLD - Hct 42.0 % 37.0-47.0 % Final [facility] L ab (Internal) : [address] ? ? BLD - Mcv 87.0 fL 80.0-96.0 Final [facility] L ab (Internal) : [address] ? ? BLD - Mch 29.8 pg 26.0-32.0 Final [facility] L ab (Internal) : [address] ? ? BLD - Mchc 34.3 g/dL 31.0-35.0 Final Nort h g/dL [facility] Hospital L ab (Internal) : [address] ? ? BLD - Rdw 12.4 % 11.5-14.5 % Final [facility] L ab (Internal) : [address] ? ? BLD - Plt 246 10*3/uL 130-450 Final Nort h 10*3/uL [facility] Hospital L ab (Internal) : [address] ? ? BLD - Anc 4.84 ? Final [place] 10*3/uL [facility] Hospital L ab (Internal) : [address] ? ? BLD - Neutro 71.1 % 40.0-75.0 % Final Nort h [facility] Hospital L ab (Internal) : [address] ? ? BLD - Lymph 23.1 % 20.0-50.0 % Final [facility] L ab (Internal) : [address] ? ? BLD - Stanton 4.7 % 2.0-10.0 % Final [facility] L [facility] (Internal) : [address] ? ? BLD Low Eos 0.7 % 1.0-6.0 % Final [facility] Hospital L ab (Internal) : [address] ? ? BLD - Baso 0.3 % 0.0-1.0 % Final [facility] Hospital L ab (Internal) : [address] ? ? BLD - Ig 0.1 % 0.0-0.9 % Final [facility] Hospital L ab (Internal) : [address] 09/02/2019 BMP, Serum S - g/r 92 mg/dL 74-106 Final North or Plasma mg/dL [facility] Hospital L ab (Internal) : [address] ? ? S - Bun 16 mg/dL 7-17 mg/dL Final Nort h [facility] Hospital L ab (Internal) : [address] ? ? S - Crea 0.60 mg/dL 0.52-1.04 Final Nor th mg/dL [facility] Hospital L ab (Internal) : [address] ? ? S - Ca 9.7 mg/dL 8.4-10.2 Final [place] mg/dL [facility] Hospital L ab (Internal) : [address] ? ? S - Na 138 mmol/L 137-145 Final [place] mmol/L [facility] Hospital L ab (Internal) : [address] ? ? S - K 3.5 mmol/L 3.5-5.1 Final [place] mmol/L [facility] Hospital L ab (Internal) : [address] ? ? S - Cl 102 mmol/L 98-107 Final [place] mmol/L [facility] Hospital L ab (Internal) : [address] ? ? S - Tco2 24.0 mmol/L 22.0-30.0 Final No rth mmol/L [facility] Hospital L ab (Internal) : [address] 09/02/2019 Drug UR - Thc negative neg (50 Final Nor th Screen, NG/mL NG/mL) Country Urine NG/mL Hospital L ab (Internal) : [address] ? ? UR - Pcp negative neg (25 Final North NG/mL) [facility] ([facility] : [address] ? ? UR - Maricruz negative neg (150 Final North NG/mL) [facility] L ab (Internal) : [address] ? ? UR - Met negative neg (500 Final North NG/mL) [facility] ab (Internal) : [address] ? ? UR - Opi negative neg (100 Final North NG/mL) [facility] ab (Internal) : [address] ? ? UR - Amp negative neg (500 Final North NG/mL) [facility] L ab (Internal) : [address] ? ? UR - Bzo negative neg (150 Final North NG/mL) [facility] ab (Internal) : [address] ? ? UR ABNORMAL Tca positive neg (300 Final Nort h NG/mL) [facility] ab (Internal) : [address] ? ? UR - Mtd negative neg (200 Final North NG/mL) [facility] ab (Internal) : [address] ? ? UR - Bar negative neg (200 Final North NG/mL) [facility] ab (Internal) : [address] ? ? UR - Oxy negative neg (100 Final North NG/mL) [facility] ab (Internal) : [address] ? ? UR - Ppx negative neg (300 Final North NG/mL) [facility] ab (Internal) : [address] ? ? UR - Bup negative neg (10 Final North NG/mL) [facility] ab (Internal) : [address] 09/02/2019 Urinalysis, UR ABNORMAL UA-WBC 3-5 [hpf] 0-3 [hpf] Final North Microscopic Count [facility] L ab (Internal) : [address] ? ? UR - UA-RBC 0-2 [hpf] 0-2 [hpf] Final Nor th [facility] ab (Internal) : [address] ? ? UR ABNORMAL UA-bact moderate none seen Final N orth eria [hpf] [hpf] [facility] ab (Internal) : [address] ? ? UR ABNORMAL UA-epit many [hpf] none seen Final [place] helial [hpf] [facility] [address] [facility] ? ? UR ABNORMAL UA-mucu moderate none seen Final N orth s [hpf] [hpf] [facility] L ab (Internal) : [address] [facility] 09/02/2019 Partial BLD - APTT 27 s 22-35 s Final Nort h Thromboplas (Op) Count ry tin Time Hospital Lab (Internal) : [address] [facility] 09/02/2019 Prothrombin BLD - Pt 11.0 S 9.1-11.7 S Nena antonieta [facility] (Internal[facility] [address] [facility] ? ? BLD - Inr 1.1 ? Final [facility] L ab (Internal) : [address] [facility] 09/02/2019 D-dimer, PLASMA - Dimq <0.19 mg/L 0.00-0.50 [facility] Quant, mg/L [facility] L ab (Internal) : [address] [facility] 09/02/2019 Culture UR - Final microbiolog ? Final [place] ([place] y results Countr y Count), Hospital Lab Urine (Internal) : [address] [facility] 09/02/2019 CRP, High S - Rcrp 0.13 mg/dL 0.10-0.30 [facility] Sensitivity mg/dL Count ry , Serum or Hospit al Lab Plasma (Internal) : [address] 09/02/2019 ESR BLD - Esr 8 mm/h 0-30 mm/h Final Nor th (Erythrocyt Count ry e Hospital L ab Sedimentati (Inte rnal): on Rate), [address] [facility] 08/17/2019 Wet [place] ? No ? ? ? 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 [place] 07/24/2019 Estradiol, S - Estradi 40 pg/mL ? Final [place] Serum ol [facility] L ab (Internal) : [address] [facility] 07/24/2019 Hepatitis C S - Hep C negative negat Final [place] Virus Ab, Ab W Rfx Count ry Serum PCR Hospital L ab (Internal) : [address] [facility] 07/24/2019 FSH S - Fsh 14.8 mIU/mL ? Final N orth (Follicle-s Count ry timulating Hospit al Lab Hormone), (Collection Systems Technician al): Serum [address] 07/24/2019 HBsAg S - Hep B negative negat Final Nort h (Hepatitis Surface Count ry B Surface Ag Hospita l Lab Ag), Serum (Inter nal): [address] 07/24/2019 HIV (1+2) S - HIV 1/2 negative negat Final [place] Ab Screen, Antigen Count ry Serum and Hospital L ab Antibody (Interna l): [address] 07/24/2019 Lh S - Lh 8.1 mIU/mL ? Final No rth (Luteinizin Count ry g Hormone), Hospi nikos Lab Serum (Internal) : [address] 07/24/2019 Testosteron S - Testost 14 NG/dL ? Nena l North e, Free + erone [facility] L ab Serum (Internal) : [address] nasra ? ? S - Sex 46.5 nmol/L ? Final [facility] Hormone [facility] Lab Globulin (Interna l): [address] nasra ? ? S - Free 0.2 NG/dL 0.1-1.1 Final [place] Testoste NG/dL [facility] Hospital L ab (Internal) : [address] 05/25/2019 CMP, Serum S High g/r 118 mg/dL 74-106 Final [facility] or Plasma mg/dL [facility] (Internal) : [address] nasra ? ? S - Bun 14 mg/dL 7-17 mg/dL Final Nort h [facility] (Internal) : [address] ? ? S - Crea 0.60 mg/dL 0.52-1.04 Final Nor th mg/dL [facility] (Internal) : [address] ? ? S - Ca 8.9 mg/dL 8.4-10.2 Final [place] mg/dL [facility] (Internal) : [address] ? ? S - Na 140 mmol/L 137-145 Final [facility] mmol/L [facility] (Internal) : [address] ? ? S - K 3.6 mmol/L 3.5-5.1 Final [place] mmol/L [facility] Hospital L ab (Internal) : [address] ? ? S - Cl 103 mmol/L 98-107 Final [place] mmol/L [facility] Hospital L ab (Internal) : [address] ? ? S - Tco2 28.0 mmol/L 22.0-30.0 Final No rth mmol/L [facility] (Internal) : [address] ? ? S - Tp 7.3 g/dL 6.3-8.2 Final [facility] g/dL [facility] (Internal) : [address] ? ? S - Alb 4.0 g/dL 3.5-5.0 Final North g/dL [facility] Hospital L ab (Internal) : [address] ? ? S - Tbil 0.2 mg/dL 0.2-1.3 Final [place] mg/dL [facility] Hospital L ab (Internal) : [address] ? ? S - Alp 66 U/L 50-136 U/L Final [facility] Hospital L ab (Internal) : [address] ? ? S - Alt 10 U/L 9-52 U/L Final [place] (Sgpt) [facility] L ab (Internal) : [address] ? ? S - Ast 20 U/L 14-36 U/L Final [place] (Sgot) [facility] Hospital L ab (Internal) : [address] 05/25/2019 CBC W/ Auto BLD - Wbc 7.0 10*3/uL 5.0-10.0 F inal North Diff 10*3/uL [facility] (Internal) : [address] ? ? BLD - Rbc 4.41 4.10-5.30 Final [place] 10*6/uL 10*6/uL [facility] (Internal) : [address] t ? ? BLD - Hgb 12.9 g/dL 12.0-16.0 Final Nort h g/dL [facility] L [facility] (Internal) : [address] ? ? BLD - Hct 39.8 % 37.0-47.0 % Final [facility] Hospital L ab (Internal) : [address] ? ? BLD - Mcv 90.2 fL 80.0-96.0 Final [facility] Hospital L ab (Internal) : [address] ? ? BLD - Mch 29.3 pg 26.0-32.0 Final [facility] Hospital L ab (Internal) : [address] , [address] ? ? BLD - Mchc 32.4 g/dL 31.0-35.0 Final [facility] h g/dL [facility] Hospital L ab (Internal) : [address] ? ? BLD - Rdw 13.2 % 11.5-14.5 % Final [facility] L ab (Internal) : [address] ? ? BLD - Plt 220 10*3/uL 130-450 Final Nort 10*3/uL [facility] Hospital L ab (Internal) : [address] ? ? BLD - Anc 4.65 ? Final [place] 10*3/uL [facility] Hospital L ab (Internal) : [address] ? ? BLD - Neutro 66.6 % 40.0-75.0 % Final [facility] L ab (Internal) : [address] ? ? BLD - Lymph 25.0 % 20.0-50.0 % Final [facility] L ab (Internal) : [address] Jayesh[address] t ? ? BLD - Stanton 6.0 % 2.0-10.0 % Final [facility] L ab (Internal) : [address] Jayesh[address] t ? ? BLD - Eos 1.4 % 1.0-6.0 % Final [facility] Hospital L ab (Internal) : [address] ? ? BLD - Baso 0.6 % 0.0-1.0 % Final [facility] L ab (Internal) : [address] ? ? BLD - Ig 0.4 % 0.0-0.9 % Final [facility] L ab (Internal) : [address] 05/25/2019 T4, Free, S - Ft4 0.91 NG/dL 0.78-2.19 Fin al [place] Serum NG/dL [facility] L [facility] (Internal) : [address] 05/25/2019 TSH, Serum S - Tsh 1.20 0.47-4.68 Final [place] or Plasma u[IU]/mL u[IU]/mL Cou n[facility] Hospital L ab (Internal) : [address] 05/15/2019 RPR (Rapid BLD - Rpr non-reactiv non-reactiv Final [place] Plasma e e [facility]), Hospital Lab Serum (Internal) : [address] 05/15/2019 Hepatitis C S - Hep C negative negat Final [place] Virus Ab, Ab W Rfx Count ry Serum PCR Hospital L ab (Internal) : [address] 05/15/2019 HIV (1+2) S - HIV 1/2 negative negat Final [place] Ab Screen, Antigen Count ry Serum and Hospital L ab Antibody (Interna l): [address] 05/15/2019 CT RNA, MISC - Specime urine ? Final Nor th Qual, PCR, n Countr y Unspecified Descript Hos pital Lab Specimen ion (Interna l): [address] ? ? MISC - Chlamyd negative ? Final [place] ia [facility] L ab (Internal) : [address] t ? ? MISC - GC negative ? Final [facility] Result [facility] L ab (Internal) : [address] 03/11/2019 Hepatitis C S - Hep C negative negat Final [place] Virus Ab, Ab W Rfx Count ry Serum PCR Hospital L ab (Internal) : [address] 03/11/2019 HIV (1+2) S - HIV 1/2 negative negat Final [place] Ab Screen, Antigen Count ry Serum and Hospital L ab Antibody (Interna l): [address] 02/06/2019 Rapid Strep THRT - Final microbiolog ? Fin al [facility] Group a, y results Count ry Throat Hospital L ab (Internal) : [address] t 01/20/2019 Rapid Strep ? Strep negative ? ? P_nc Primary Group a, Care Throat Hernandez/Orl ea ns: [phone] 01/07/2019 Peak Flow* ? No ? ? ? P_ nc Primary observat Care ion Hernandez/Orl ea recorded ns: [address] 12/23/2018 CBC W/ Auto BLD - Wbc 6.8 10*3/uL 5.0-10.0 F inal [place] Diff 10*3/uL [facility] Hospital L ab (Internal) : [address] t ? ? BLD - Rbc 4.49 4.10-5.30 Final [place] 10*6/uL 10*6/uL [facility] Hospital L ab (Internal) : [address] t ? ? BLD - Hgb 13.3 g/dL 12.0-16.0 Final Nort h g/dL [facility] Hospital L ab (Internal) : [address] t ? ? BLD - Hct 39.5 % 37.0-47.0 % Final [facility] L ab (Internal) : [address] t ? ? BLD - Mcv 88.0 fL 80.0-96.0 Final [facility] L ab (Internal) : [address] t ? ? BLD - Mch 29.6 pg 26.0-32.0 Final [facility] L ab (Internal) : [address] t ? ? BLD - Mchc 33.7 g/dL 31.0-35.0 Final Nort h g/dL [facility] Hospital L ab (Internal) : [address] t ? ? BLD - Rdw 12.3 % 11.5-14.5 % Final [facility] L ab (Internal) : [address] ? ? BLD - Plt 225 10*3/uL 130-450 Final Nort h 10*3/uL [facility] Hospital L ab (Internal) : [address] t ? ? BLD - Anc 4.39 ? Final [place] 10*3/uL [facility] Hospital L ab (Internal) : [address] ? ? BLD - Neutro 64.9 % 40.0-75.0 % Final Nort h [facility] Hospital L ab (Internal) : [address], Jayeshd[address] t ? ? BLD - Lymph 27.6 % 20.0-50.0 % Final [facility] Hospital L ab (Internal) : [address], Jayeshdario t ? ? BLD - Stanton 5.0 % 2.0-10.0 % Final [facility] Hospital L ab (Internal) : [address] ? ? BLD - Eos 1.8 % 1.0-6.0 % Final [facility] Hospital L ab (Internal) : [address], Jayeshdario t ? ? BLD - Baso 0.4 % 0.0-1.0 % Final [facility] Hospital L ab (Internal) : [address] t ? ? BLD - Ig 0.3 % 0.0-0.9 % Final [facility] Hospital L ab (Internal) : [address] t 12/23/2018 CMP, Serum S - g/r 105 mg/dL 74-106 Final North or Plasma mg/dL [facility] Hospital L ab (Internal) : [address] t ? ? S - Bun 15 mg/dL 7-17 mg/dL Final Nort h [facility] Hospital L ab (Internal) : [address] t ? ? S Low Crea 0.50 mg/dL 0.52-1.04 Final Nor th mg/dL [facility] Hospital L ab (Internal) : [address] t ? ? S - Ca 9.0 mg/dL 8.4-10.2 Final North mg/dL [facility] Hospital L ab (Internal) : [address] t ? ? S - Na 137 mmol/L 137-145 Final North mmol/L [facility] Hospital L ab (Internal) : [address] t ? ? S Low K 3.3 mmol/L 3.5-5.1 Final [place] mmol/L [facility] Hospital L ab (Internal) : [address] t ? ? S - Cl 103 mmol/L 98-107 Final [place] mmol/L [facility] Hospital L ab (Internal) : [address] t ? ? S - Tco2 27.0 mmol/L 22.0-30.0 Final No rth mmol/L [facility] Hospital L ab (Internal) : [address] ? ? S - Tp 7.1 g/dL 6.3-8.2 Final [place] g/dL [facility] Hospital L ab (Internal) : [address] ? ? S - Alb 4.0 g/dL 3.5-5.0 Final [place] g/dL [facility] Hospital L ab (Internal) : [address] t ? ? S - Tbil 0.4 mg/dL 0.2-1.3 Final [place] mg/dL [facility] Hospital L ab (Internal) : [address] ? ? S - Alp 57 U/L 50-136 U/L Final [facility] Hospital L ab (Internal) : [address] t ? ? S - Alt <10 U/L 9-52 U/L Final [place] (Sgpt) [facility] Hospital L ab (Internal) : [address] t ? ? S - Ast 18 U/L 14-36 U/L Final [place] (Sgot) [facility] Hospital L ab (Internal) : [address] [place]amm[address] 07/25/2018 CT RNA, MISC - Specime cervix ? Final Nor th Qual, PCR, n Countr y Unspecified Descript Hos pital Lab Specimen ion (Interna l): [address] ? ? MISC - Chlamyd negative ? Final [facility] L ab (Internal) : [address] nasra ? ? MISC - GC negative ? Final [facility] Hospital L ab (Internal) : [address] 07/23/2018 Hepatitis C S - Hep C negative negat Final [place] Virus Ab, Ab W Rfx Count ry Serum PCR Hospital L ab (Internal) : [address] 07/23/2018 HIV (1+2) S - HIV 1/2 negative negat Final [place] Ab Screen, Antigen Count ry Serum and Hospital L ab Antibody (Interna l): [address] 04/30/2018 Pap Test, MISC - Pap see report ? Final [place] Thinprep, [facility] Cervical [facility] Lab (Internal) : [address] ? ? MISC - Report results ? Final [facility] L ab (Internal) : [address] 01/22/2018 Neutrophil BLD ? Anc-man 7.30 ? Final [place] Count, ual 10*3/uL [facility] Lab (Anc), (Internal) : Blood [address] 01/22/2018 Differentia BLD High Polys 82 % 40-75 % Final [place] l, Manual, Countr y Blood Hospital L ab (Internal) : [address] t ? ? BLD ? Bands 0 % 0-5 % Final [facility] L ab (Internal) : [address] t ? ? BLD Low Lymphs 9 % 20-50 % Final [facility] L ab (Internal) : [address] t ? ? BLD ? Stanton 6 % 2-10 % Final [facility] L ab (Internal) : [address] t ? ? BLD ? Eos 2 % 0-6 % Final [facility] L ab (Internal) : [address] t ? ? BLD ? Baso 1 % 0-1 % Final [facility] L ab (Internal) : [address] t ? ? BLD ? Atyp 0 % ? Final [facility] L ab (Internal) : [address] t ? ? BLD ? Plts, adequate adequate Final [facility] Hospital L ab (Internal) : [address] t ? ? BLD ? RBC normal normal Final [place] Morpholo [facility] Hospital L ab (Internal) : [address] 01/22/2018 CMP, Serum S ? g/r 91 mg/dL 74-106 Final [place] or Plasma mg/dL [facility] Hospital L ab (Internal) : [address] t ? ? S High Bun 23 mg/dL 7-17 mg/dL Final Nort h [facility] Hospital L ab (Internal) : [address] t ? ? S ? Crea 0.60 mg/dL 0.52-1.04 Final [facility] th mg/dL [facility] Hospital L ab (Internal) : [address] t ? ? S ? Ca 8.9 mg/dL 8.4-10.2 Final [place] mg/dL [facility] Hospital L ab (Internal) : [address] ? ? S ? Na 139 mmol/L 137-145 Final [place] mmol/L [facility] Hospital L ab (Internal) : [address] t ? ? S ? K 4.4 mmol/L 3.5-5.1 Final [place] mmol/L [facility] Hospital L ab (Internal) : [address] t ? ? S ? Cl 104 mmol/L 98-107 Final [place] mmol/L [facility] Hospital L ab (Internal) : [address] ? ? S ? Tco2 27.0 mmol/L 22.0-30.0 Final No rth mmol/L [facility] L [facility] (Internal) : [address] t ? ? S ? Tp 6.9 g/dL 6.3-8.2 Final [place] g/dL [facility] Hospital L ab (Internal) : [address] t ? ? S ? Alb 4.1 g/dL 3.5-5.0 Final [place] g/dL [facility] Hospital L ab (Internal) : [address] t ? ? S ? Tbil 0.3 mg/dL 0.2-1.3 Final [place] mg/dL [facility] Hospital L ab (Internal) : [address] t ? ? S ? Alp 64 U/L 50-136 U/L Final [facility] L ab (Internal) : [address] t ? ? S ? Alt 20 U/L 9-52 U/L Final [place] (Sgpt) [facility] L ab (Internal) : [address] t ? ? S High Ast 46 U/L 14-36 U/L Final [place] (Sgot) [facility] L ab (Internal) : [address] t 01/22/2018 CBC W/ Auto BLD ? Wbc 8.9 10*3/uL 5.0-10.0 F inal [place] Diff 10*3/uL [facility] L [facility] (Internal) : [address] t ? ? BLD ? Rbc 4.60 4.10-5.30 Final [place] 10*6/uL 10*6/uL [facility] L ab (Internal) : [address] t ? ? BLD ? Hgb 13.6 g/dL 12.0-16.0 Final Nort h g/dL [facility] L ab (Internal) : [address] ? ? BLD ? Hct 41.5 % 37.0-47.0 % Final [facility] L ab (Internal) : [address] ? ? BLD ? Mcv 90.2 fL 80.0-96.0 Final [facility] Hospital L ab (Internal) : [address] t ? ? BLD ? Mch 29.6 pg 26.0-32.0 Final [facility] L ab (Internal) : [address] ? ? BLD ? Mchc 32.8 g/dL 31.0-35.0 Final Nort h g/dL [facility] L ab (Internal) : [address] t ? ? BLD ? Rdw 12.9 % 11.5-14.5 % Final [facility] L ab (Internal) : [address] t ? ? BLD ? Plt 169 10*3/uL 130-450 Final Nort h 10*3/uL [facility] L ab (Internal) : [address] 12/13/2017 Venipunctur BLD ? Venpn* ? ? Final [facility] L ab (Internal) : [address] t 12/13/2017 HIV (1+2) S ? HIV 1/2 negative negat Final [place] Ab Screen, Antigen Count ry Serum and Hospital L ab Antibody (Interna l): [address] t 12/13/2017 Hepatitis C S ? Hep C negative negat Final [place] Virus Ab, Ab W Rfx Count ry Serum PCR Hospital L ab (Internal) : [address] t 09/06/2017 Streptococc THRT ? Final microbiolog ? Fin al [place] us Group a y results Cou ntry Ag Screen Hospita l Lab (Internal) : [address] t 07/15/2017 Wet [place] ? Final microbiolog ? Final [place] Panel, y results [facility] Vaginal [facility] Lab Fluid (Internal) : [address] t 07/15/2017 CT RNA, MISC ? Specime cervical ? Final N orth Qual, PCR, n Countr y Unspecified Descript Hos pital Lab Specimen ion (Interna l): [address] t ? ? MISC ? Chlamyd negative ? Final [place] ia [facility] L ab (Internal) : [address] t ? ? MISC ? GC negative ? Final [place] Result [facility] L ab (Internal) : [address] t 07/15/2017 Culture, UR ? Final microbiolog ? Final [place] Urine y results [facility] L ab (Internal) : [address] t 07/15/2017 Urinalysis, UR ABNORMAL UA-WBC 50-100 0-3 [hpf] Fi [facility] Microscopic [hpf] Count Hospital L ab (Internal) : [address] t ? ? UR ? UA-RBC 0-2 [hpf] 0-2 [hpf] Final [facility] L ab (Internal) : [address] ? ? UR ABNORMAL UA-bact moderate none seen Final N mini eria [hpf] [hpf] [facility] L ab (Internal) : [address] t ? ? UR ? UA-epit rare [hpf] none seen Final N mini helial [hpf] [facility] L ab (Internal) : [address] t ? ? UR ABNORMAL UA-mucu rare [hpf] none seen Final [place] s [hpf] [facility] L ab (Internal) : [address] t 07/15/2017 Urinalysis, UR ? UA-colo yellow pale yellow F inal [place] Dipstick, r Country [facility] Hospital L ab Micro (Internal) : [address] t ? ? UR ABNORMAL UA-appe hazy clear Final [facility] L ab (Internal) : [address] t ? ? UR ? UA-spec 1.020 1.003-1.035 Final [facility] L ab (Internal) : [address] t ? ? UR ? UA-pH 7.0 [pH] 4.6-8.0 Final [facility] [pH] Country Hospital L ab (Internal) : [address] ? ? UR ABNORMAL UA-leuk small negative Final [facility] L ab (Internal) : [address] ? ? UR ? UA-nitr negative negative Final Nort h ite [facility] ab (Internal) : [address] ? ? UR ? UA-prot negative negative Final Nort h [facility] ab (Internal) : [address] ? ? UR ? UA-gluc negative negative Final Nort h [facility] ab (Internal) : [address] ? ? UR ? UA-keto negative negative Final Nort h ne [facility] ab (Internal) : [address] ? ? UR ? UA-urob normal normal Final [facility] ab (Internal) : [address] ? ? UR ? UA-bili negative negative [facility] ab ([facility] : [address] ? ? UR ABNORMAL UA-bloo trace negative Final Nort h d [facility] ab (Internal) : [address] t 05/27/2017 Culture, UR ? Final microbiolog ? Final [place] Urine y results [facility] ab (Internal) : [address] t 05/27/2017 sensitiviti MISC ? Sens* ? ? Final N orth es[I] [facility] ab (Internal) : [address] t 05/27/2017 Urinalysis, UR ABNORMAL UA-WBC 3-5 [hpf] 0-3 [hpf] Final [place] Microscopic Count [facility] ab (Internal) : [address] ? ? UR ABNORMAL UA-RBC 10-25 [hpf] 0-2 [hpf] Final [facility] ab (Internal) : [address] t ? ? UR ABNORMAL UA-bact few [hpf] none seen Final [place] eria [hpf] [facility] ab (Internal) : [address] ? ? UR ? UA-epit none seen none seen Final No rth helial [hpf] [hpf] [facility] ab (Internal) : [address] t ? ? UR ? UA-mucu none seen none seen Final No rth s [hpf] [hpf] [facility] ab (Internal) : [address] 05/27/2017 Urinalysis, UR ? UA-colo yellow pale yellow F inal [place] Dipstick, r Country [facility] Micro (Internal) : [address] t ? ? UR ? UA-appe clear clear Final [facility] L ab (Internal) : [address] t ? ? UR ? UA-spec 1.015 1.003-1.035 Final Nor th Grav [facility] L ab (Internal) : [address] t ? ? UR ? UA-pH 6.5 [pH] 4.6-8.0 Final North [pH] [facility] L ab (Internal) : [address] t ? ? UR ? UA-leuk negative negative Final Nort h Est [facility] L ab (Internal) : [address] t ? ? UR ABNORMAL UA-nitr positive negative Final No rth ite [facility] L ab (Internal) : [address] t ? ? UR ABNORMAL UA-prot trace negative Final Nort h [facility] ab (Internal) : [address] t ? ? UR ? UA-gluc negative negative Final Nort h [facility] L ab (Internal) : [address] t ? ? UR ? UA-keto negative negative Final Nort h ne [facility] ab (Internal) : [address] t ? ? UR ABNORMAL UA-urob positive normal Final Nort h il [facility] L ab (Internal) : [address] t ? ? UR ? UA-bili negative negative Final Nort h [facility] ab (Internal) : [address] t ? ? UR ABNORMAL UA-bloo small negative Final Nort h d [facility] ab (Internal) : [address] 01/28/2017 Venipunctur BLD ? Venpn* ? ? Final [facility] ab (Internal) : [address] 01/28/2017 RPR (Rapid BLD ? Rpr non-reactiv non-reactiv Final [facility]), Hospital Lab Serum (Internal) : [address] 01/28/2017 HIV (1+2) S ? HIV 1/2 negative negat Final North Ab Screen, Antibody Coun try Serum Hospital L ab (Internal) : [address] 01/28/2017 Hepatitis C S ? Hep C negative negat Final North Virus Ab, Ab W Rfx Count ry Serum PCR Hospital L ab (Internal) : [address] 01/28/2017 HBsAg S ? Hep B negative negat Final Nort h (Hepatitis Surface Count ry B Surface Ag Hospita l Lab Ag), Serum (Inter nal): [address] t ? Venipunctur ? Locatio Right ? ? P_n c Primary e n Antecubital Care [place]: [address], [place] ? ? ? Needle 21g ? ? P_nc Prim shiva Vacutainer Care [place]: [address], [place] ? ? ? Number 1 ? ? P_nc Prim shiva of Care Attempts [place]: [address], [place] ? ? ? Success Yes ? ? P_nc Kathy mechelle hardin Care [place]: [address], [place] ? ? ? Dressin Pressure ? ? P_nc P rimary g Band-aid Care Applied [place]: [address], [place] ? ? ? Initial hj ? ? P_nc Kathy mechelle luis Care [place]: [address], [place] ? Venipunctur ? Locatio Right ? ? P_n c Primary e n Antecubital Care [place]: [address], [place] ? ? ? Needle 21g ? ? P_nc Prim shiva Vacutainer Care [place]: [address], [place] ? ? ? Number 1 ? ? P_nc Prim shiva of Care Attempts [place]: [address], [place] ? ? ? Success Yes ? ? P_nc Kathy mechelle hardin Care [place]: [address], [place] ? ? ? Dressin Pressure ? ? P_nc P rimary g Band-aid Care Applied [place]: [address], [place] ? ? ? Initial hj ? ? P_nc Kathy mechelle s Care [place]: [address], [place] ? Urinalysis, ? Color Yellow ? ? P_nc Primary Dipstick, Care Reflex [place] Micro ns: [address], [place] ? ? ? Appeara Clear ? ? P_nc Kathy malonee Care [place]: [address], [place] ? ? ? Glucose Normal ? ? P_nc Kathy min Care [place]: [address], [place] ? ? ? Bilirub Negative ? ? P_nc P rimary in Care [place]: [address], [place] ? ? ? Ketones Negative ? ? P_nc P rimary Care [place]: [address], [place] ? ? ? Specifi 1.020 ? ? P_nc Kathy lynch Care Webb [place]: [address], [place] ? ? ? Blood Negative ? ? P_nc Kathy min Care [place]: [address], [place] ? ? ? Ph 5.5 ? ? P_nc Prima ry Care [place]: [address], [place] ? ? ? Protein Negative ? ? P_nc P rimary Care [place]: [address], [place] ? ? ? Urobili 0.2 ? ? P_nc Kathy talbot Care [place]: [address], [place] ? ? ? Nitrite negative ? ? P_nc P rimary Care [place]: [address], [place] ? ? ? Leukocy Negative ? ? P_nc P rimary te Care Esterase [place] ns: [address], [place] ? Venipunctur ? Locatio Right ? ? P_n c Primary e n Antecubital Care [place]: [address], [place] ? ? ? Needle 21g ? ? P_nc Prim shiva Vacutainer Care [place]: [address], [place] ? ? ? Number 1 ? ? P_nc Prim shiva of Care Attempts [place] ns: [address], [place] ? ? ? Success Yes ? ? P_nc Kathy hardin Care [place]: [address], [place] ? ? ? Dressin Pressure ? ? P_nc P rimary g Band-aid Care Applied [place] ns: [address], [place] ? ? ? Initial hj ? ? P_nc Kathy mechelle luis Care [place]: [address], [place] ? Venipunctur ? Locatio Left ? ? P_n c Primary e n Antecubital Care [place]: [address], [place] ? ? ? Needle 21g ? ? P_nc Prim shiva Vacutainer Care [place]: [address], [place] ? ? ? Number 1 ? ? P_nc Prim shiva of Care Attempts [place] ns: [address], [place] ? ? ? Success Yes ? ? P_nc Kathy mechelle hardin Care [place]: [address], [place] ? ? ? Dressin Pressure ? ? P_nc P rimary g Band-aid Care Applied [place] ns: [address], [place] ? ? ? Initial rs ? ? P_nc Kathy mechelle s Care [place]: [address], [place] ? Venipunctur ? Locatio Left ? ? P_n c Primary e n Antecubital Care [place]: [address], [place] ? ? ? Needle 21g ? ? P_nc Prim shiva Vacutainer Care [place]: [address], [place] ? ? ? Number 1 ? ? P_nc Prim shiva of Care Attempts [place] ns: [address], [place] ? ? ? Success Yes ? ? P_nc Kathy mechelle hardin Care [place]: [address], [place] ? ? ? Dressin Pressure ? ? P_nc P rimary g Band-aid Care Applied [place] ns: [address], [place] ? ? ? Initial HJ ? ? P_nc Kathy mechelle s Care [place]: [address], [place] ? Venipunctur ? Locatio Right ? ? P_n c Primary e n Antecubital Care [place]: [address], [place] ? ? ? Needle 21g ? ? P_nc Prim shiva Vacutainer Care [place]: [address], [place] ? ? ? Number 1 ? ? P_nc Prim shiva of Care Attempts [place] ns: [address], [place] ? ? ? Success Yes ? ? P_nc Kathy mechelle hardin Care [place]: [address], [place] ? ? ? Dressin Pressure ? ? P_nc P rimary g Band-aid Care Applied [place] ns: [address], [place] ? ? ? Initial kk ? ? P_nc Kathy mechelle s Care [place]: [address], [place] ? Venipunctur ? Locatio Right ? ? P_n c Primary e n Antecubital Care [place]: [address], [place] ? ? ? Needle 21g ? ? P_nc Prim shiva Vacutainer Care [place]: [address], [place] ? ? ? Number 1 ? ? P_nc Prim shiva of Care Attempts [place] ns: [address], [place] ? ? ? Success Yes ? ? P_nc Kathy mechelle hardin Care [place]: [address], [place] ? ? ? Dressin Pressure ? ? P_nc P rimary g Band-aid Care Applied [place] ns: [address], [place] ? ? ? Initial kk ? ? P_nc Kathy luis Care [place]: [address], [place] ? Rapid Strep ? Strep negative ? ? P_n c Primary Group a, Care Throat [place]: [address], [place] ? Venipunctur ? Locatio Right ? ? P_n c Primary e n Antecubital Care [place]: [address], [place] ? ? ? Needle 21g ? ? P_nc Prim shiva Vacutainer Care [place]: [address], [place] ? ? ? Number 1 ? ? P_nc Prim shiva of Care Attempts [place]: [address], [place] ? ? ? Success Yes ? ? P_nc Kathy hardin Care [place]: [address], [place] ? ? ? Dressin Pressure ? ? P_nc P rimary g Band-aid Care Applied [place]: [address], [place] ? ? ? Initial kk ? ? P_nc Kathy luis Care [place]: [address] [facility], [place] ? Rapid Strep ? Strep negative ? ? P_n c Primary Group a, Care Throat [place]: [address], [place] Past Encounters 01/31/2022 Injury of Left Ankle MALENA WenC: [address] [place] [address], [facility] [address] [address], Ph. 01/15/2022 Postoperative Hypothyroidism; Candidiasi s of Vagina; Gastro-esophageal Reflux Disease with Esophagitis; Migraine with Aura Beatriz Butler PA-C: [address] [place] [address], Ph. 01/10/2022 MALENA WenC: [address] [place] [address], [facility] [address], [place] [address], Ph. 11/08/2021 Pruritus of Vulva; Dysuria YOHAN KELLER MD: [address] [place] [address], Ph. 10/23/2021 Obstructive Sleep Apnea Syndrome; Health Education Given Usman Watters MD, Board Certified Sleep Ph ysician: [address] [place] [address] [address] [address], Ph. 10/16/2021 Gastro-esophageal Reflux Disease with Es ophagitis; Sore Throat Symptom; Postoperative Hypothyroidism Beatirz Butler PA-C: [address] [place] [address], Ph. 10/13/2021 Postoperative Hypothyroidism Beatriz Butler PA-C: [address] [place] [address], Ph. 10/05/2021 Postoperative Hypothyroidism; Persistent Cough KIRA Stuart-C: [address] [place] [address], Ph. 08/29/2021 Internal Hemorrhoids Mary Ellen Ravi MD: [address] [place] [address], Ph. 08/18/2021 Gynecologic Examination; Lack of Libido Gary Foley MD: [address] [place] [address], Ph. 08/17/2021 Postoperative Hypothyroidism MALENA StuartC: [address] [place] [address], Ph. 08/15/2021 Snoring; Vocal Cord Dysfunction; Health Education Given Usman Watters MD, Board Certified Sleep Ph ysician: [address] [place] [address], Ph. 08/07/2021 Postoperative Hypothyroidism; Chronic Co nstipation; Pain in Right Foot; Tinea Pedis MALENA StuartC: [address] [place] [address], Ph. 07/28/2021 Internal Hemorrhoids Mary Ellen Ravi MD: [address] [place] [address], Ph. 07/06/2021 Administration of Influenza Vaccine; Pos toperative Hypothyroidism MALENA StuartC: [address] [place] [address], Ph. 06/30/2021 Internal Hemorrhoids Mary Ellen Ravi MD: [address] [place] [address], Ph. 06/02/2021 Internal Hemorrhoids Mary Ellen Ravi MD: [address] [place] [address], Ph. 05/22/2021 Depressive Disorder; Venereal Disease Sc reening MALENA StuartC: [address], [place] [address], Ph. 05/08/2021 Postoperative Hypothyroidism GAIL Castañead: [address], [place] [address], Ph. 04/12/2021 Hemorrhoids GAIL Castañeda: [address], [place] [address], Ph. 03/27/2021 Cough; Dysuria; Postoperative Hypothyroi dism; Low Back Pain GAIL Castañeda: [address], [place] [address], Ph. 02/23/2021 Cough Beatriz Butler PA-C: [address] [place] [address], Ph. 01/09/2021 Dyspnea at Rest; Persistent Cough; Parox ysmal Supraventricular Tachycardia; Sleep Disorder; Pleural Effusion; Postoperative Hypothyroidism; Malaise and Fatigue Ken Ni MD: [address] [place] [address], Ph. 01/02/2021 Depressive Disorder; Chronic Cough Beatriz Butler PA-C: [address] [place] [address], Ph. 12/28/2020 Candidiasis of Skin Beatriz Butler PA-C: [address] [facility], [place] [address], Ph. 12/12/2020 Dyspnea at Rest; Dyspnea on Exertion; Ga stro-esophageal Reflux Disease with Esophagitis; Generalized Anxiety Disorder Beatriz Butler PA-C: [address], [place] [address], Ph. 10/06/2020 Gastroesophageal Reflux Disease; Suprave ntricular Tachycardia GAIL Castañeda: [address], [place] [address], Ph. 09/27/2020 Constipation; Gastroesophageal Reflux Di sease; Mortons Neuroma of Right Foot Beatriz Butler PA-C: [address] [facility], [place] [address], Ph. Social History Tobacco Smoking Status Never Smoker Vaccine List Vaccine Type COVID-19, mRNA, LNP-S, PF, 30 mcg/0.3 mL dose (CHAIN[facility]) 09/21/2021 11/07/2021 Hep B, adult 01/09/2013?0.5 mL HPV, quadrivalent 06/26/2006 08/26/2006 05/11/2008 06/28/2008 influenza, injectable, quadrivalent 08/26/2019 influenza, injectable, quadrivalent, pre servative free 07/27/2020?0.5 mL 07/06/2021?0.5 mg influenza, seasonal, injectable 12/26/2007 Td (adult), adsorbed Tdap 01/09/2013?0.5 mL varicella Plan of Care Patient Instructions Your sleep study shows Mild Obstructive Sleep Apnea and we discussed your treatment options. You expressed good understanding and agreed to proceed with CPAP/BIPAP therapy. We discussed process of initiating thera py, commonly encountered problems and ways to get help and troubleshoot them. I have sent a script for new machine to the following Durable Medical Equipment Provider. Please contact them (or our office) in 2 months if you do not hear from them by then. [x ] [facility] - [place] branch but therapist will travel to your home They will make an appointment for you to slate picker the machine and show you how to put on the mask and operate the machine. Making the effort to use your machine ev juan time you sleep is very important, especially as you get used to therapy. Please call them if you have any questions on how to use machine or use your mask. Ca ll them if your mask is not fitting righ t and need to be fitted with a new one. This is important to do as early as possible. Please call Sleep Clinic if you have any other concerns or problems before your next appointment. Remember to bring your entire PAP leases and land supervisor including mask, hose, and plug to your future appointme nts. This allows me to provide you with the best patient care and address any of your questions/concerns on therapy. We discussed signs and symptoms you are exhibiting that may be due to Obstructive Sleep Apnea or other sleep disorders. We went over sleep conditions that I suspect you may have that will benefit from further evaluation. The next step is to diagnose your sleep disorder through sleep study testing. We will get permission from your insuran ce to do the sleep study. Call us back in 2 to 3 weeks if you do not get a call from us about scheduling your sleep study. Bring all your home medications to the sleep study including any sleep aids. However, please note you should make arrangements for a ride home in case you get morning drowsiness from taking sleep aid. Please call [facility] if you ar e not able to make it to your sleep study. Please follow up with Bentley villagomez your PCP on the speech pathologist Reminders Provider Appointments None recorded. ? ? Lab None recorded. ? ? Referral None recorded. ? ? Procedures None recorded. ? ? Surgeries None recorded. ? ? Imaging None recorded. ? ? Vitals 01/15/2022 01:40PM Follow Up 40 Height Weight BMI Blood Pressure 158.12 cm 73.03 kg 29.2 kg/m2 110/68 mm[Hg] 01/10/2022 10:30AM Acute 15 Height Weight BMI 158.12 cm 72.57 kg 29 kg/m2 11/08/2021 10:40AM Acute 20 Height Weight BMI Blood Pressure 158.12 cm 75.11 kg 30 kg/m2 104/76 mm[Hg] 10/23/2021 02:30PM Office 30 Height Weight 158.12 cm 08/29/2021 09:30AM Office 15 Height 158.12 cm 08/18/2021 01:40PM HME 20 Height Weight BMI 158.12 cm 75.07 kg 30 kg/m2 08/15/2021 09:30AM New Patient 45 Height Weight BMI Blood Pressure 158.12 cm 74.75 kg 29.9 kg/m2 112/75 mm[Hg] 08/07/2021 01:00PM Any 20 Height Weight BMI Blood Pressure 158.12 cm 74.98 kg 30 kg/m2 112/60 mm[Hg] 07/28/2021 08:45AM Office 15 Height 158.12 cm 07/06/2021 01:20PM Follow Up 20 Height Weight BMI Blood Pressure 158.12 cm 74.5 kg 29.8 kg/m2 112/68 mm[Hg] 06/30/2021 08:30AM Office 15 Height 158.12 cm 06/02/2021 10:30AM Office 15 Height 158.12 cm 05/22/2021 01:20PM Acute 20 Height Weight BMI Blood Pressure 158.12 cm 75.1 kg 30 kg/m2 112/72 mm[Hg] 04/12/2021 03:00PM Acute 20 Height Weight BMI Blood Pressure 158.12 cm 72.21 kg 28.9 kg/m2 106/80 mm[Hg] 03/27/2021 09:20AM Acute 20 Height Weight BMI Blood Pressure 158.12 cm 75.57 kg 30.2 kg/m2 110/80 mm[Hg] 01/09/2021 02:00PM Follow Up 20 Height Blood Pressure 158.12 cm 106/72 mm[Hg] 01/02/2021 01:40PM Follow Up 20 Height Weight BMI Blood Pressure 158.12 cm 76.77 kg 30.7 kg/m2 108/70 mm[Hg] 12/28/2020 02:00PM Follow Up 20 Height Weight BMI Blood Pressure 158.12 cm 75.3 kg 30.1 kg/m2 118/72 mm[Hg] 12/12/2020 02:40PM Follow Up 40 Height Weight BMI Blood Pressure 158.12 cm 75.78 kg 30.3 kg/m2 114/62 mm[Hg] 09/27/2020 03:00PM Follow Up 40 Height Weight BMI Blood Pressure 158.12 cm 73.74 kg 29.5 kg/m2 110/76 mm[Hg] 08/18/2020 11:20AM [facility] 20 Height Weight BMI Blood Pressure 158.12 cm 72.57 kg 29 kg/m2 118/72 mm[Hg] 07/27/2020 01:20PM Follow Up 20 Height Weight BMI Blood Pressure 158.12 cm 71.21 kg 28.5 kg/m2 100/62 mm[Hg] 06/20/2020 03:00PM Follow Up 20 Height Weight BMI Blood Pressure 158.12 cm 108/64 mm[Hg] 06/07/2020 01:00PM Acute 20 Height Weight BMI Blood Pressure 158.12 cm 68.66 kg 27.5 kg/m2 100/60 mm[Hg] 05/25/2020 01:40PM Acute 20 Height Weight BMI Blood Pressure 158.12 cm 67.13 kg 26.9 kg/m2 104/82 mm[Hg] 04/25/2020 11:00AM Follow Up 40 Height Weight BMI Blood Pressure 158.12 cm 67.84 kg 27.1 kg/m2 104/70 mm[Hg] 04/14/2020 01:40PM Follow Up 40 Height Weight BMI Blood Pressure 158.12 cm 66.68 kg 26.7 kg/m2 110/70 mm[Hg] 03/11/2020 11:20AM Same Day 20 Height Weight BMI Blood Pressure 158.12 cm 65.77 kg 26.3 kg/m2 124/90 mm[Hg] 01/06/2020 02:20PM Follow Up 20 Height 158.12 cm 12/24/2019 10:00AM Acute 20 Height 158.12 cm 12/16/2019 11:00AM Acute 20 Height Weight BMI Blood Pressure 158.12 cm 63.73 kg 25.5 kg/m2 114/80 mm[Hg] 11/05/2019 10:40AM Acute 20 Height Blood Pressure 158.12 cm 120/80 mm[Hg] 10/29/2019 04:00PM Follow Up 20 Height Weight BMI Blood Pressure 158.12 cm 63.5 kg 25.4 kg/m2 120/70 mm[Hg] 10/27/2019 01:40PM Follow Up 20 Height Weight BMI Blood Pressure 158.12 cm 64.86 kg 25.9 kg/m2 120/80 mm[Hg] 10/06/2019 11:20AM Follow Up 20 Height Weight BMI Blood Pressure 158.12 cm 63.76 kg 25.5 kg/m2 122/78 mm[Hg] 09/14/2019 11:00AM Same Day 20 Height Weight BMI Blood Pressure 158.12 cm 60.78 kg 24.3 kg/m2 120/80 mm[Hg] 08/17/2019 11:00AM [facility] 20 Height Weight BMI Blood Pressure 158.12 cm 61.51 kg 24.6 kg/m2 118/74 mm[Hg] 08/05/2019 03:20PM Same Day 20 Height Weight BMI Blood Pressure 158.12 cm 61.69 kg 24.7 kg/m2 110/70 mm[Hg] 07/30/2019 08:00AM Acute 20 Height Weight BMI Blood Pressure 158.12 cm 60.65 kg 24.3 kg/m2 98/52 mm[Hg] 07/24/2019 11:20AM Office 20 Height Weight BMI 158.12 cm 62.1 kg 24.8 kg/m2 07/09/2019 03:00PM Follow Up 20 Height Blood Pressure 158.12 cm 110/70 mm[Hg] 07/07/2019 01:40PM Follow Up 20 Height Weight BMI Blood Pressure 158.12 cm 59.87 kg 23.9 kg/m2 110/60 mm[Hg] 06/08/2019 01:00PM Acute 20 Height 158.12 cm 05/25/2019 01:20PM Acute 20 Height Weight BMI Blood Pressure 158.12 cm 60.33 kg 24.1 kg/m2 120/80 mm[Hg] 05/15/2019 08:00AM Acute 20 Height Weight BMI Blood Pressure 158.12 cm 58.97 kg 23.6 kg/m2 110/70 mm[Hg] 03/03/2019 03:00PM Acute 20 Height Weight BMI Blood Pressure 158.12 cm 58.06 kg 23.2 kg/m2 104/80 mm[Hg] 01/20/2019 12:40PM Acute 20 Height Blood Pressure 158.12 cm 108/78 mm[Hg] 01/06/2019 09:20AM Acute 20 Height Weight BMI Blood Pressure 158.12 cm 57.15 kg 22.9 kg/m2 110/70 mm[Hg] 11/14/2018 09:00AM Acute 20 Height Weight BMI Blood Pressure 158.12 cm 58.06 kg 23.2 kg/m2 100/80 mm[Hg] 07/25/2018 01:50PM Office 20 Height Weight BMI Blood Pressure 158.12 cm 57.15 kg 22.9 kg/m2 120/70 mm[Hg] 04/30/2018 01:40PM Office 10 Height 158.12 cm 03/25/2018 01:30PM Acute 30 Height Weight BMI Blood Pressure 158.12 cm 56.25 kg 22.5 kg/m2 110/70 mm[Hg] 05/20/2017 Height Weight Blood Pressure 158.12 cm 51.94 kg 112/68 mm[Hg] 05/01/2017 Height Weight Blood Pressure 158.12 cm 48.99 kg 104/74 mm[Hg] 02/15/2017 Weight Blood Pressure 47.45 kg 104/70 mm[Hg] 02/06/2017 Weight Blood Pressure 49.9 kg 110/80 mm[Hg] 02/06/2017 Height 158.12 cm 11/21/2016 Weight Blood Pressure 50.17 kg 98/70 mm[Hg] 11/21/2016 Height 158.12 cm 06/11/2016 Height 158.12 cm 06/11/2016 Weight Blood Pressure 48.53 kg 116/78 mm[Hg] 05/15/2016 Height Weight Blood Pressure 158.12 cm 51.71 kg 108/72 mm[Hg] 05/03/2016 Weight Blood Pressure 53.07 kg 100/78 mm[Hg] 03/30/2016 Height Weight Blood Pressure 158.12 cm 53.98 kg 108/60 mm[Hg] 03/28/2016 Height Weight Blood Pressure 158.12 cm 52.84 kg 110/80 mm[Hg] 03/14/2016 Height Weight Blood Pressure 158.12 cm 53.07 kg 98/78 mm[Hg] 01/27/2016 Height Weight Blood Pressure 158.12 cm 53.07 kg 106/62 mm[Hg] 01/17/2016 Height Weight Blood Pressure 158.12 cm 53.07 kg 98/64 mm[Hg] 06/13/2015 Height Weight Blood Pressure 158.12 cm 48.99 kg 106/60 mm[Hg] 02/17/2015 Height Weight Blood Pressure 158.12 cm 46.18 kg 102/72 mm[Hg] 01/25/2015 Blood Pressure 104/66 mm[Hg] 01/18/2015 Height Weight Blood Pressure 158.12 cm 45.9 kg 106/70 mm[Hg] 11/10/2014 Blood Pressure 104/78 mm[Hg] 10/13/2014 Blood Pressure 98/80 mm[Hg] 09/08/2014 Height Weight Blood Pressure 158.12 cm 44.45 kg 120/84 mm[Hg] 08/27/2014 Height Weight Blood Pressure 158.12 cm 44.86 kg 98/62 mm[Hg] 08/06/2014 Blood Pressure 116/78 mm[Hg] 07/15/2014 Blood Pressure 114/56 mm[Hg] 02/11/2014 Height Weight Blood Pressure 156.21 cm 41.73 kg 110/70 mm[Hg] 12/21/2013 Height Weight Blood Pressure 156.21 cm 41.93 kg 116/68 mm[Hg] 12/11/2013 Weight Blood Pressure 37.65 kg 108/60 mm[Hg] 12/10/2013 Blood Pressure 116/80 mm[Hg] 08/21/2013 Blood Pressure 120/72 mm[Hg] 05/14/2013 Height Weight Blood Pressure 156.21 cm 42.18 kg 96/52 mm[Hg] 04/09/2013 Blood Pressure 112/68 mm[Hg] 03/23/2013 Height Weight Blood Pressure 156.21 cm 42.18 kg 102/64 mm[Hg] 02/19/2013 Height Weight Blood Pressure 156.21 cm 42.18 kg 108/60 mm[Hg] 02/13/2013 Height Weight Blood Pressure 156.21 cm 42.18 kg 104/60 mm[Hg] 11/20/2012 Height Weight Blood Pressure 156.21 cm 43.09 kg 114/62 mm[Hg] 09/26/2012 Height Weight Blood Pressure 156.21 cm 41.73 kg 98/64 mm[Hg] 09/16/2012 Height Weight Blood Pressure 156.21 cm 42.64 kg 110/74 mm[Hg] 08/27/2012 Height Weight Blood Pressure 156.21 cm 42.64 kg 110/70 mm[Hg] 06/25/2012 Weight Blood Pressure 44.45 kg 98/70 mm[Hg] 05/21/2012 Weight Blood Pressure 45.81 kg 104/64 mm[Hg] 03/28/2012 Weight 47.63 kg 03/25/2012 Weight Blood Pressure 47.63 kg 102/64 mm[Hg] 03/11/2012 Weight Blood Pressure 47.63 kg 116/52 mm[Hg] 02/13/2012 Height Weight 156.21 cm 48.53 kg 02/01/2012 Blood Pressure 124/80 mm[Hg] 01/09/2012 Weight Blood Pressure 48.53 kg 114/68 mm[Hg] 11/15/2011 Height Weight Blood Pressure 156.21 cm 48.99 kg 104/60 mm[Hg] 10/05/2011 Height Weight Blood Pressure 156.21 cm 49.44 kg 106/64 mm[Hg] 09/26/2011 Height Weight Blood Pressure 156.21 cm 48.53 kg 100/60 mm[Hg] 08/31/2011 Weight Blood Pressure 48.99 kg 98/62 mm[Hg] 08/20/2011 Blood Pressure 102/60 mm[Hg] 01/12/2011 Weight Blood Pressure 46.27 kg 100/50 mm[Hg] 12/27/2010 Height Weight 156.21 cm 46.27 kg 12/13/2010 Weight Blood Pressure 45.36 kg 102/80 mm[Hg] 11/29/2010 Weight Blood Pressure 46.27 kg 96/60 mm[Hg] 11/24/2010 Weight Blood Pressure 45.59 kg 100/70 mm[Hg] 10/06/2010 Weight Blood Pressure 43.54 kg 100/78 mm[Hg] 08/31/2010 Weight Blood Pressure 45.81 kg 96/70 mm[Hg] 06/14/2010 Weight Blood Pressure 44 kg 90/72 mm[Hg] 04/05/2010 Weight Blood Pressure 44 kg 92/62 mm[Hg] 03/31/2010 Height Weight Blood Pressure 160.02 cm 44 kg 88/42 mm[Hg] 02/28/2010 Weight Blood Pressure 44.45 kg 108/68 mm[Hg] 02/21/2010 Weight Blood Pressure 44.45 kg 106/60 mm[Hg] 02/16/2010 Weight Blood Pressure 45.13 kg 106/62 mm[Hg] 02/01/2010 Blood Pressure 110/72 mm[Hg] 01/17/2010 Weight Blood Pressure 44 kg 100/58 mm[Hg] 12/05/2009 Height Weight Blood Pressure 160.02 cm 45.81 kg 92/50 mm[Hg] 07/27/2009 Height Weight Blood Pressure 160.02 cm 46.27 kg 92/54 mm[Hg] 03/31/2009 Height Weight 160.02 cm 47.63 kg 12/09/2008 Height Weight Blood Pressure 160.02 cm 46.27 kg 102/60 mm[Hg] 11/08/2008 Height Weight Blood Pressure 160.02 cm 48.08 kg 98/56 mm[Hg] 09/24/2008 Height Weight Blood Pressure 160.02 cm 46.72 kg 104/60 mm[Hg] 08/12/2008 Height Weight Blood Pressure 160.02 cm 46.72 kg 88/44 mm[Hg] 06/28/2008 Height Weight Blood Pressure 160.02 cm 50.8 kg 110/60 mm[Hg] 05/11/2008 Height Weight Blood Pressure 160.02 cm 48.99 kg 102/50 mm[Hg] 04/14/2008 Height Weight Blood Pressure 160.02 cm 47.17 kg 108/60 mm[Hg] 07/31/2007 Weight Blood Pressure 43.54 kg 92/48 mm[Hg] 07/25/2007 Weight Blood Pressure 44 kg 94/60 mm[Hg] 07/04/2007 Height Weight 160.02 cm 43.32 kg 06/19/2007 Weight Blood Pressure 43.09 kg 92/56 mm[Hg] 01/16/2007 Height Weight Blood Pressure 160.02 cm 40.14 kg 96/58 mm[Hg] 09/06/2006 Weight Blood Pressure 43.54 kg 90/60 mm[Hg] 08/26/2006 Blood Pressure 92/56 mm[Hg] 08/02/2006 Weight Blood Pressure 43.54 kg 100/76 mm[Hg] 06/26/2006 Weight Blood Pressure 45.36 kg 92/60 mm[Hg] 05/08/2006 Weight Blood Pressure 44.45 kg 84/44 mm[Hg] 04/29/2006 Weight Blood Pressure 44 kg 98/68 mm[Hg] 03/04/2006 Height Weight Blood Pressure 156.85 cm 45.25 kg 90/62 mm[Hg] 08/20/2005 Weight Blood Pressure 44.91 kg 102/64 mm[Hg] 11/17/2004 Height Weight Blood Pressure 157.48 cm 42.18 kg 98/52 mm[Hg] 10/20/2004 Blood Pressure 100/58 mm[Hg] 10/19/2004 Blood Pressure 106/60 mm[Hg] 08/03/2004 Height Weight Blood Pressure 157.48 cm 49.9 kg 98/56 mm[Hg]
--- OUTSIDE RECORDS SUMMARY | 2022-02-27 15:51 | XMS_ITS | Encounter Summary ---
:1980 Author Care Team Providers Name Role Phone Mary Butler Primary Care Provider [phone] Aubrey Rowland MD General Surgeon [phone] Reason for Visit fracture; Left ankle problem L/v 01/10/22- f/u to Left ankle avulsion fx, DOI: 01/08/22. Assessment and Plan Assessment Note Patient seen today follow-up from a lef t ankle distal fibula avulsion fracture. We discussed her positive foot progression angle her pes planus my recommendation is for orthotics we talked about physical thera py which she declined saying that she does not think it is necessary at this point. If she has any questions concerns she can contact the office otherwise she can fol low-up as needed. 1. Injury of left ankle ? XR, ankle, 3 or more view Discussion Note: None recorded.Patient educational handouts: No information available. Plan of Care Reminders Provider Appointments Follow up 40 04/03/2022 9:40AM Mary kay PA-C ? Hme 20 08/22/2022 Ras Allen 10:00AM Lab None recorded. ? ? Referral None recorded. ? ? Procedures None recorded. ? ? Surgeries None recorded. ? ? Imaging XR, Ankle, 3 or More 01/31/2022 [facility] Radiology (Inter nal) Medications Name Start Date ? ? albuterol sulfate 2.5 mg/3 mL (0.083 %) solution for n ebulization ? 3 mL nebulization q4-6h PRN cough albuterol sulfate HFA 90 mcg/actuation aerosol inhaler ? Inhale 2 puffs every 4-6 hours by inhalation route fo r 30 days. cholecalciferol (vitamin D3) 50 mcg (2,000 unit) table t ? Take 1 tablet every day by oral route for 90 days. diltiazem ER 240 mg capsule,24 hr,extended release ? 1 capsule po daily fluconazole 150 mg tablet ? Take 1 tablet every other day by oral route for 2 day s. fluticasone 100 mcg-salmeterol 50 mcg/dose blistr powd r for inhalation ? INHALE ONE PUFF BY MOUTH TWICE A DAY fluticasone propionate 50 mcg/actuation nasal spray,prince spension ? [place] 2 sprays twice a day by intranasal route as nee ded for 30 days. gabapentin 600 mg tablet ? Take 1 tablet every day by oral route at bedtime. levothyroxine 112 mcg tablet ? Take 1 tablet every day by oral route for 90 days. levothyroxine 125 mcg tablet ? Take 1 tablet every day by oral route for 30 days. lidocaine 5 % topical ointment ? APPLY TO AFFECTED AREA(S) BY TOPICAL ROUTE 1-4 TIMES DAILY NEEDED methylphenidate 20 mg tablet 07/06/2021 Take 1 tablet twice a day by oral route. metoprolol succinate ER 25 mg tablet,extended release 24 hr ? nystatin 100,000 unit/gram topical powder ? APPLY TO THE AFFECTED AREA 2 TIMES PER DAY ondansetron HCl 4 mg tablet ? Take 1 tablet 4 times a day by oral route as needed f or 30 days. pantoprazole 40 mg tablet,delayed release ? Take 1 tablet every day by oral route for 90 days. polyethylene glycol 3350 17 gram/dose oral powder ? TAKE 17 GRAMS ONCE DAILY FOR 90 DAYS rizatriptan 10 mg tablet ? Take 1 tablet as needed by oral route as directed for 30 days. Seroquel 100 mg tablet 10/05/2021 Take 1 tablet every day by oral route at bedtime. zolpidem 10 mg tablet ? 1/2-1 tablet po QHS Medications Administered None recorded. Vitals None recorded. Results Lab Results None recorded. Allergies Code Code System Name Reaction Severity Onset Adhesive Tape ? ? ? Bleach (Sodium ? ? ? Hypochlorite) 4053 RxNorm Erythromycin Base ? ? ? Fish Containing Products ? ? ? 4981892 RxNorm Latex ? ? ? 320420 RxNorm Milk ? ? ? Penicillins ? ? ? 7906860 RxNorm Trintellix Itching Moderate to Severe ? Problems Name Status Onset Date Source ? Cervical Lymphadenopathy Active 10/06/2019 ? Postoperative Hypothyroidism Active 04/14/2020 ? Plantar Fasciitis Active 07/30/2020 ? Candidiasis of Skin Active 12/28/2020 ? Paroxysmal Supraventricular Tachycardia Active 01/10/20 21 ? Pleural Effusion Active 01/09/2021 ? Sleep Disorder Active 01/09/2021 ? Malaise and Fatigue Active 01/09/2021 ? Dyspnea at Rest Active 01/09/2021 ? Persistent Cough Active 01/09/2021 ? Gastro-esophageal Reflux Disease with Esophagitis Active 10/16/2021 ? Psychoactive Substance Abuse Active ? His tory Depressive Disorder Active ? History Attention Deficit Hyperactivity Disorder Active ? History Migraine with Aura Active ? History Raynaud's Disease Active ? History Mild Intermittent Asthma Active ? History Cervical Intraepithelial Neoplasia Grade 2 Active ? History Procedures Date Name Performed by ? 04/04/2016 [facility] Uterus 250 g or Less Information not [...] avai lable Notes: 08/16/08 with IUD removal 01/31/2022 XR, Ankle, 3 or More View [facility] Radiology (Internal) [address] [place] [address] (Work Place) Vaccine List Vaccine Type COVID-19, mRNA, LNP-S, PF, 30 mcg/0.3 mL dose ([employer]) 09/21/2021 11/07/2021 Hep B, adult 01/09/2013?0.5 mL HPV, quadrivalent 06/26/2006 08/26/2006 05/11/2008 06/28/2008 influenza, injectable, quadrivalent 08/26/2019 influenza, injectable, quadrivalent, pre servative free 07/27/2020?0.5 mL 07/06/2021?0.5 mg influenza, seasonal, injectable 12/26/2007 Td (adult), adsorbed Tdap 01/09/2013?0.5 mL varicella Social History Tobacco Smoking Status Never Smoker What type of diet are you REGULAR following? Are you currently employed? N What is your code status? 0 How much tobacco do you chew? none What is your relationship Single status? Did the fall result in an N injury? What is your level of alcohol None consumption? Do you have any pets? 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 Are you deaf or do you have N serious difficulty hearing? Are you passively exposed to Y smoke? Do you or have you ever used N any other forms of tobacco or nicotine? Are there any guns present in N your home? How many children do you have? 3 Have you used IV drugs? N Are you blind or do you have N Notes: We ars glasses difficulty seeing? Do you have smoke and carbon Y monoxide detectors in your home? In the 14 days before symptom N onset, have you had close contact with a person who is under investigation for COVID-19 while that person was ill? Performs monthly self-breast N exam? What was the date of your most 01/15/2022 recent tobacco screening? Do you or have you ever used Never used electronic e-cigarettes or vape? cigarettes Do you have an advanced N directive? Do you feel safe at home? Y General stress level High Do you use any illicit or N recreational drugs? In the 14 days before symptom N onset, have you had close contact with a laboratory-confirmed COVID-19 while that case was ill? What is your exercise level? Occasional Live alone or with others? with others Do you or have you ever used Never used smokeless tobacco smokeless tobacco? Language Difficulties No Hard of hearing or deaf in one N or both ears? What is your level of caffeine Occasional Notes: rare soda, 1-2 a consumption? week. Have you recently traveled N abroad? Have you fallen in the last 3 N months? Functional Status No Impairment. Past Encounters 01/31/2022 Injury of Left Ankle Meghana Wong PA-C: [address] [place] [address] [address], [address], [place] [address], Ph. 01/15/2022 Postoperative Hypothyroidism; Candidiasi s of Vagina; Gastro-esophageal Reflux Disease with Esophagitis; Migraine with Aura Mary Butler PA-C: [address] [place] [address], Ph. 01/10/2022 Meghana Wong PA-C: [address] [place] [address], [facility] [address], [place] [address], Ph. History of Present Illness Note: <div>Patient seen today follow-up regarding a left ankle distal fibula tiny avulsion fracture. Patient reports she is doing reasonably well. She had called previously because she was having someissues in the dorsum of her foot but she was also walking fairly good distance with her boot on. Shehas since transition transition into her street shoe and her foot pain has resolved. She notes at the end of the day little pain and swelling on the lateral aspect.</div> Review of Systems None recorded. Physical Exam ? Notes: <div>Alert and oriented no a cute distress. Patient ambulates with a nonantalgic gait pattern she has a positive foot progression angle on both sides and significant pes pl anus. She has very minimal swelling laterally. She has good active dorsiflexion and plantar flexion.

X-rays obtained show tiny khadijah off that distal f ibula mortise intact.</div>
--- OUTSIDE RECORDS SUMMARY | 2022-02-27 15:52 | XMS_ITS | Encounter Summary ---
:1980 Author Organization [facility] Address [address] [place] [address] Care Team Providers Name Role Phone Max Buenrostro MD Primary Care Provider Reason for Visit Reason Comments Ankle Injury re check ankle from 01.01.10 Encounter Details Date Type Department Care Team Description 03/10/2010 Office Visit [facility] Sotero Dick Ankle f racture (Primary Sports Medicine Program Dx) - [address] [place] [address] Social History Tobacco Use Types Packs/Day Years Used Date Former Smoker Alcohol Use Standard Drinks/Week Comments Not Asked 0 (1 standard drink = 0.6 oz pure alcoho l) Sex Assigned at Date Recorded Not on file documented as of this encounter Progress Notes Sotero Dick PA-C - 03/17/2010 1621 EDT Sports Medicine Service [facility] [address] [place] [id number] PROGRESS/FOLLOWUP NOTE - 03/10/2010 PROBLEM: Status post 9 weeks right distal fibula avulsion fracture. SUBJECTIVE: The patient states that she is showing signs of improving but she still has pain laterally, especially when she climbs stairs. OBJECTIVE: The patient is alert and oriented x3, in no obvious distress. Eyes: Equal and reactive tolight. No breathing difficulties. Exam of the ankle reveals no evidence of edema, deformity, skin irritation or breakdown. She has good range of motion to dorsi, plantarflexion, inversion and eversion with some increasing pain against eversion and pain over the distal fibula. ASSESSMENT: Status post 9 weeks right distal fibula fracture, avulsion sprain. PLAN: The patient is to continue with her ankle stabilizer. She is instructed in range of motion exercises, and I would recommend some physical therapy; that can be helpful and I will leave that up to her as she does seem to be quite reluctant to do this. I anticipate continued gradual improvement. I would like to follow up with her again in about 6 weeks to gauge her progress. Electronically Signed by Sotero Dick PA-C 03/17/2010 16:21 Dictated by: Sotero Dick PA-C - Sotero Dick PA-C A - LIVIA Job ID: SM Doc ID: [id number] Ext Doc ID: [id number] cc: Pascual melchor - 03/10/2010 1125 EDT Addended by: PASCUAL ZULETA on: 03/10/2010 Modules accepted: Orders Sotero bruce PA-C - 03/10/2010 1119 EDT This office note has been dictated. documented in this encounter Plan of Treatment Not on filedocumented as of this encounter Visit Diagnoses Diagnosis Ankle fracture - Primary Unspecified closed fracture of ankle documented in this encounter Discontinued Medications Medication Sig Discontinue Reason Start Date End Date amphetamine-dextroamph Take 20 mg by mouth Patient Stopped Taking 03/10/2010 etamine (ADDERALL) [address] steve mg tablet documented as of this encounter Historical Medications This list may reflect changes made after this encounter. Medication Sig Dispensed Refills Start Date End Date loratadine (CLARITIN) 10 Take 10 mg by mouth 0 mg tablet daily. amphetamine-dextroampheta Take 20 mg by mouth 0 10/09/2017 mine (ADDERALL) 20 mg daily. tablet added in this encounter Care Teams Pet Care Worker Relationship Specialty Start Date End Date Max Buenrostro MD PCP - General 02/09/10 02/24/[address] [place] [address] documented as of this encounter
--- OUTSIDE RECORDS SUMMARY | 2022-02-27 15:52 | XMS_ITS | Encounter Summary ---
:1980 Author Organization [facility] Address [address] [place] [address] Care Team Providers Name Role Phone Max Bunerostro MD Primary Care Provider Encounter Details Date Type Department Care Team Description 03/31/2010 Results Only [facility] Charles Foley MD Laboratory Services - [address] [place] [address] [facility] [address] [place] [address] [place], [place] [address] [phone] Social History Tobacco Use Types Packs/Day Years Used Date Former Smoker Alcohol Use Standard Drinks/Week Comments Not Asked 0 (1 standard drink = 0.6 oz pure alcoho l) Sex Assigned at Date Recorded Not on file documented as of this encounter Plan of Treatment Not on filedocumented as of this encounter Procedures Procedure Name Priority Date/Time Associated Diagnosis Comme [facility] CYTOPATHOLOGY Routine 03/31/2010 0:00 EDT Results for this procedure are i n the results section . documented in this encounter Results CYTOPATHOLOGY (03/31/2010 0:00 EDT) Pathology Report: CYTOPATHOLOGY REPORT ? IGL[facility] ALL EN ? LAB Reports generated via electr onic interface contain original data; ? however they are lacking the format of the original report. ? Caution should be taken when reading/interpreting unformatted reports. ? Name: ? LOYD HARRINGTON ? Accession #: ? [id number] ? : ? 1980 (Age: 29) ??F ?Collect Date: ? 03/31/2010 ? Location: ? [facility] ? Receive Date: ? 04/06/2010 ? Provider: ?CHARLES PEACE MD ? Copy to: ? Specimen/Source: ? Pap Test, Cervix/Endocervix, ThinPrep Imaging System ? with manual evaluation ? Last Menstrual Period: ? 06/27/10 ? Hormonal/Contraceptive Statu s: ? Yes ? Previous Gynecologic Patholo gy: ? ASC-US: 07/08 ? HPV: + HR 07/08 ? LILIA II: 09/08 ? LILIA I: 11/08 ? Treatment History: ? Colposcopy: 09/08 LILIA II ? LEEP: 11/08 - LILIA I ? Other: ? HPVA - HPV testing requested if ASC-US on the current ThinPrep Pap test. ? SPECIMEN ADEQUACY ? Satisfactory for Eval uation ? - transformation zone compon ent present ? GENERAL CATEGORIZATION ? Negative for Intraepi thelial Lesion or Malignancy ? Document reviewed and electr onically signed by: ? Angelika Stanleylogg, CT(ASCP) ? Report Date: ??07/13/ 2010 13:43 ? End of Report ? Specimen Performing Organization Address City/State/ZIP Code Phon e Number [facility] [address] [place] [address] SERVICES [facility] [address] [place] [address] documented in this encounter Visit Diagnoses Not on filedocumented in this encounter Care Teams Sales & Service Associate Relationship Specialty Start Date End Date Max Buenrostro MD PCP - General 02/09/10 02/24/[address] [place] [address] documented as of this encounter
--- OUTSIDE RECORDS SUMMARY | 2022-02-27 15:52 | XMS_ITS | Encounter Summary ---
:1980 Author Care Team Providers Name Role Phone Mary Butler Primary Care Provider [phone] Aubrey Rowland MD General Surgeon [phone] Reason for Visit fracture; Left ankle pain ER f/u to Left ankle avulsion fx, DOI: . Assessment and Plan Assessment Note 41-year-old female with a left distal f ibular very small avulsion fracture. We discussed x-ray findings. She can be rut ght-bear as tolerated she is to use the boot when she is up and walking otherwise ank le range of motion follow-up with myself in 3 weeks. Discussion Note: None recorded.Patient educational handouts: No information available. Plan of Care Reminders Provider Appointments Follow up 40 04/03/2022 9:40AM Mary kay PA-C ? Hme 20 08/22/2022 10:00AM Gary hammonds MD Lab None recorded. ? ? Referral None recorded. ? ? Procedures None recorded. ? ? Surgeries None recorded. ? ? Imaging None recorded. ? ? Medications Name Start Date ? ? albuterol [...] propionate 50 mcg/actuation nasal spray,prince spension ? [place] 2 sprays twice a day by intranasal [...] po QHS Medications Administered None recorded. Vitals Height Weight BMI 5 ft 2.25 in 160 lbs 29 kg/m2 Results Lab Results None recorded. Allergies Code Code System Name Reaction Severity Onset Adhesive Tape ? ? ? Bleach (Sodium ? ? ? Hypochlorite) 4053 RxNorm Erythromycin Base ? ? ? Fish Containing Products ? ? ? 4061872 RxNorm Latex ? ? ? 115983 RxNorm Milk ? ? ? Penicillins ? ? ? 2877243 RxNorm Trintellix Itching Moderate to Severe ? [...] Procedures Date Name Performed by ? 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 Functional Status No Impairment. Past Encounters 01/10/2022 Meghana Wong PA-C: [address] [facility], [address], [place] [address], Ph. History of Present Illness ? Ortho Intake Assessment Reported By: Patient Ortho Assessment: How long has this been going on? Days:. Is this due to an injury? Date of Injury:. Is this Wor ker's Comp? No. Is this due to a motor vehicle accident? No. Is thi s claim in litigation? No. Have you seen other medical providers for this problem? (If yes, specify where & when) PCP. Have you had previous testing done? (If yes, specify where & when) XRAY Notes: <div>pt states she was going for a walk when she fell while being distracted, and rolled her L eft ankle, pt continued to walk for another 1/2 a mile with darin re pain. </div> Note: <div>41-year-old female seen in consultation today for left ankle injury. Patient states on 01/08/2022 she was going on a recreational walk she stepped in a pothole inverted her ankle. She noted pain immediately. However, she continued to walk for quite a bit when the pain did not subside she presented to the emergency room. X-rays were obtained. Showing a small khadijah off the distal fibula she was given a walking boot crutches and told to follow-up with orthopedics. No previous injuries to this ankle she reports. She does however state that she sprains her right ankle quite a bit. Currently unemployed.</div> Review of Systems None recorded. Physical Exam ? Notes: <div>Alert and oriented no a cute distress respirations unlabored psych and affect appropriate. Inspecti on of the left foot and ankle shows skin is intact. Very minimal swellin g over the lateral malleolus. She is active dorsiflexion and plantar fle xion. She is nontender palpation at the proximal fibula medially or throughou t the foot. She does have point tenderness over the lateral malleolus.
<b r>X-rays: X-rays from the emergency department again reviewed showing a sma ll khadijah off that distal fibula. Mortise intact.</div>
--- OUTSIDE RECORDS SUMMARY | 2022-02-27 15:52 | XMS_ITS | Encounter Summary ---
:1980 Author Organization [facility] Address [address] [place] [address] Care Team Providers Name Role Phone Max Buenrostro MD Unavailable Mary Butler Primary Care Provider Reason for Visit Reason Comments Back Pain pt reports siatica pain for a year, here in the hospital with her son who is admitted, Danica been sleep ing on a really hard chair Encounter Details Date Type Department Care Team Description 09/22/2017 Emergency [facility] Ari Ayala PA-C [address], [place] [id number] Sciatica of right side Emergency Department - Emergency, MD Margie (Primary Dx) [facility] [place] [address] [place] [address] Social History Tobacco Use Types Packs/Day Years Used Date Former Smoker Alcohol Use Standard Drinks/Week Comments Yes 0 (1 standard drink = 0.6 oz pure alcoho l) Sex Assigned at Date Recorded Not on file documented as of this encounter Last Filed Vital Signs Vital Sign Reading Time Taken Comments Blood Pressure 114/62 09/22/2017 0843 EST Pulse 76 09/22/2017 0843 EST Temperature 36.4 ??C (97.5 ??F) 09/22/2017 0843 EST Respiratory Rate 16 09/22/2017 0843 EST Oxygen Saturation 100% 09/22/2017 0843 EST Inhaled Oxygen Concentration - - Weight 53 kg (116 lb 13.5 oz) 09/22/2017 0843 EST Height 157.5 cm (5' 2) 09/22/2017 0843 EST Body Mass Index 21.37 09/22/2017 0843 EST documented in this encounter Discharge Diagnoses Diagnosis M54.41 Lumbago with sciatica, right side -M54.41[ICD-10-CM] G89.29 Other chronic pain-G89.29[ICD-10- CM] Z88.0 Allergy status to penicillin-Z88.0 [ICD-10-CM] Z87.891 Personal history of nicotine dep endence-Z87.891[ICD-10-CM] documented in this encounter Discharge Instructions InstructionsAri Ayala PA - 09/22/2017 Continue advil and tylenol for pain. Return to the Emergency Department (ED) if your condition worsens, does not improve as expected, or for any other concerns. Specifically return if you have new or uncontrolled pain, worsening fever, difficulty breathing, vomiting, or are unable to drink fluids. AttachmentsThe following attachments cannot be sent through Care Everywhere.BACK PAIN (MALAY)documented in this encounter Medications at Time of Discharge Medication Sig Dispensed Refills Start Date End Date acetaminophen (TYLENOL) Take 1,000 mg by 0 500 mg tablet mouth every 6 hours. fluticasone (FLONASE) 50 1 [place] by Nasal 0 mcg/Actuation nasal spray route daily. fluticasone-salmeterol Inhale 1 Puff as 0 (ADVAIR) 250-50 mcg/Dose directed every 12 diskus inhaler hours. ibuprofen (MOTRIN) 600 mg Take 600 mg by mouth 0 tablet 3 times daily. loratadine (CLARITIN) 10 Take 10 mg by mouth 0 mg tablet daily. zolpidem (AMBIEN) 10 mg Take 10 mg by mouth 0 tablet at bedtime as needed for Sleep. amphetamine-dextroampheta Take 20 mg by mouth 0 10/09/2017 mine (ADDERALL) 20 mg daily. tablet citalopram (CELEXA) 20 mg Take 20 mg by mouth 0 10/09/2017 tablet daily. clonazepam (KLONOPIN) 0.5 Take 0.5 mg by mouth 0 10/09/2017 mg tablet 2 times daily. documented as of this encounter Discharge Disposition Disposition Code Departure Means Destination Home or Self Care Walk-out Home documented in this encounter ED Notes Ari Ayala PA - 09/22/2017 1116 EST DOS: 09/22/2017 Chief Complaint Patient presents with ??? Back Pain pt reports siatica pain for a year, here in the hospital with her son who is admitted, Danica been sleeping on a really hard chair HPI The patient is a 36 y.o. female who presents today with Back Pain (pt reports siatica pain for a year, here in the hospital with her son who is admitted, Danica been sleeping on a really hard chair) HPI Patient is an otherwise healthy 36-year-old female who presents with acute on chronic low back pain.Patient states that her pain is primarily on the right side and radiates down the back of her leg. Patient states that the pain is sharp is worse with any type of movement. Patient states that her symptoms have been exacerbated by sleeping in a chair while she has been in the hospital with her son whois admitted. Patient denies having any loss of bowel or bladder control. She does state that she has a knot in her back. Patient denies any IV drug use or any recent illnesses. Review of Systems Review of Systems Review of systems: Constitutional: No fevers/chills Head/eyes/ears/nose/throat: No nosebleed/eyepain Respiratory: No shortness of breath Cardiologic: No chest pain Gastrointestinal: No abdominal pain/nausea/vomiting/diarrhea Genitourinay: No dysuria Muscle: + back pain Skin: No rash Neurological: No Headache Hematologic: No easy bruisability Psychologic: No confusion Physical Exam: Chief complaint reviewed Vitals signs reviewed Nurses note reviewed Well developed Head/eyes/ears/nose/throat:Normocephalic Conjunctiva normal Neck:supple Muscle: Lumbar sacral spine: Mild tenderness to palpation paraspinous R Sensation to light touch intact lower extremity Strength: able to stand on tip toes/rock back onheels/squats to 90 degrees Reflexes equal bilateral patella/achilles Neurologic: no focal neurological deficits Skin:warm and dry Psychological:Mood /affect normal Allergies Allergen Reactions ??? Iodine Containing Multivitamin ??? Penicillins ??? Shellfish Containing Products Vital Signs Temp: 36.4 ??C (97.5 ??F) Temp src: Temporal Pulse: 76 Resp: 16 SpO2: 100 % BP: 114/62 BP Device: BP Machine Physical Exam RESULTS EKG orders: None Radiology orders: None ED Lab Results Labs Reviewed - No data to display Relevant Data Procedures ED COURSE patient feeling significantly better after pain medication. Patient will continue to take Tylenol Advil for pain and follow up here for any worsening symptoms. A medical screening exam was performed. ASSESSMENT AND PLAN Final diagnoses: Sciatica of right side ED Current Prescriptions None DISPOSITION: Discharged The patient's pain was managed to an adequate level weighing risk vs. benefit of further medications. Upon departure from the Emergency Department, the patient's pain was 3 on a zero to ten scale. Any further pain treatment will be at the discretion of the provider following up with the patient based on their clinical assessment. Condition at departure from the Emergency Department: Improved PCP: Mary Caceres was consulted and agrees with treatment plan. 09/22/2017 16:52 No flowsheet data found. documented in this encounter Plan of Treatment Not on filedocumented as of this encounter Visit Diagnoses Diagnosis Sciatica of right side - Primary Sciatica documented in this encounter Administered Medications Inactive Administered Medications - up to 3 most recent administrations Medication Order MAR Action Action Date Dose Rate Site acetaminophen (TYLENOL) tablet Given 09/22/2017 9:30 EST 1,000 m g 1,000 mg 1,000 mg, oral, NOW X1, 1 dose, On 09/22/17 at 0930, STAT ibuprofen (MOTRIN) tablet 600 mg Given 09/22/2017 9:30 EST 600 mg 600 mg, oral, NOW X1, 1 dose, On 09/22/17 at 0930, STAT documented in this encounter Active and Recently Administered Medications Times are shown in EST. Scheduled Medication Order 09/20/2017 09/21/2017 09/22/2017 acetaminophen (TYLENOL) tablet 1,000 mg (COMPLETED) 0930 (Given - Provider: Michael Almaraz, RN) 1,000 mg, oral, NOW X1, 1 dose, On 09/22/17 at 0930, STAT ibuprofen (MOTRIN) tablet 600 mg (COMPLETED) 0930 (Given - Provider: Michael Almaraz, YING) 600 mg, oral, NOW X1, 1 dose, On 09/22/17 at 0930, STAT documented in this encounter Care Teams Hematology Supervisor Relationship Specialty Start Date End Date Mary Butler PA PCP - General 09/22/17 [address] [place] [address] Max Buenrostro MD 02/25/[address] [facility] [address] [place] [phone] documented as of this encounter
--- OUTSIDE RECORDS SUMMARY | 2022-02-27 15:52 | XMS_ITS | Encounter Summary ---
:1980 Author Organization [facility] Address [address] [place] [address] Care Team Providers Name Role Phone Unknown, Provider Primary Care Provider Max Buenrostro MD Unavailable Encounter Details Date Type Department Care Team Description 11/19/2014 Hospital Encounter [facility]- Kika Unknown, Provider, [facility] [address] [facility] [phone] [place] [address] (Work) [phone] Social History Tobacco Use Types Packs/Day Years Used Date Never Assessed Sex Assigned at Date Recorded Not on file documented as of this encounter Medications at Time of Discharge Medication Sig Dispensed Refills Start Date End Date acetaminophen (TYLENOL) Take 1,000 mg by 0 500 mg tablet mouth every 6 hours. fluticasone (FLONASE) 50 1 [place] by Nasal 0 mcg/Actuation nasal spray route [...] Code Departure Means Destination Home or Self [place] documented in this encounter Plan of Treatment Not on filedocumented as of this encounter Visit Diagnoses Not on filedocumented in this encounter Care Teams Agricultural Researcher Relationship Specialty Start Date End Date Unknown, Provider, PCP - General 02/25/13 05/31/15 Max Buenrostro MD 02/25/[address] [place] [address] [place] [phone] documented as of this encounter
--- OUTSIDE RECORDS SUMMARY | 2022-02-27 15:52 | XMS_ITS | Encounter Summary ---
:1980 Author Organization [facility] Address [address] [place] [address] Care Team Providers Name Role Phone Max Buenrostro MD Unavailable Mary Butler Primary Care Provider Encounter Details Date Type Department Care Team Description 11/08/2021 Lab Requisition [facility] Outr Resulting Lab, Pathology & Laboratory Provider [facility] [address], [place] [id number] Social History Tobacco Use Types Packs/Day Years Used Date Former Smoker Alcohol Use Standard Drinks/Week Comments Yes 0 (1 standard drink = 0.6 oz pure alcoho l) Sex Assigned at Date Recorded Not on file documented as of this encounter Plan of Treatment Not on filedocumented as of this encounter Procedures Procedure Name Priority Date/Time Associated Comments Diagnosis CHLAMYDIA/N. Routine 11/08/2021 13:09 Results for this GONORRHOEAE AMPLIFIED EST proced ure are in RNA the results section. documented in this encounter Results CHLAMYDIA/N. GONORRHOEAE AMPLIFIED RNA (11/08/2021 13:09 EST) Pathologist Sig nature Gonococcus Result Negative Negative [facility] Chlamydia Result Negative Negative [facility] Specimen Swab - Entire vagina (body structure) Performing Organization Address City/State/ZIP Code Phon e Number [facility] [address] [place] [address] SERVICES documented in this encounter Visit Diagnoses Not on filedocumented in this encounter Care Teams Methods Study Analyst Relationship Specialty Start Date End Date Mary Butler PA PCP - General 09/22/17 [address] [place] [address] Max Buenrostro MD 02/25/[address] [facility] [address] [place] [phone] documented as of this encounter
--- OUTSIDE RECORDS SUMMARY | 2022-02-27 15:52 | XMS_ITS | Encounter Summary ---
:1980 Author Organization [facility] Address [address] [place] [address] Care Team Providers Name Role Phone Max Buenrostro MD Unavailable None, Provider Primary Care Provider Unavailable Encounter Details Date Type Department Care Team Description 10/15/2016 Results Only [facility]- Charles Elizondo MD [phone] [place] [address] [address] [place], [place] [address] (Wo rk) Social History Tobacco Use Types Packs/Day Years Used Date Former Smoker Alcohol Use Standard Drinks/Week Comments Not Asked 0 (1 standard drink = 0.6 oz pure alcoho l) Sex Assigned at Date Recorded Not on file documented as of this encounter Plan of Treatment Not on filedocumented as of this encounter Procedures Procedure Name Priority Date/Time Associated Diagnosis Comme nts PAP TEST- RESULT Routine 10/15/2016 0:00 EST Resu lts for this ONLY procedure are i n the results section. documented in this encounter Results PAP TEST- RESULT ONLY (10/15/2016 0:00 EST) Pathology Report: CYTOPATHOLOGY REPORT [facility] Reports generated via electronic interface contain altagracia ginal data; SERVICES however they are lacking the format of the original re port. Caution should be taken when reading/interpreting unfo rmatted reports. Name: ? EYAL JARRETT ? Accession #: ? [id number] : ? 1980 (Age: [age]) ??F ?Collect Date: ? 10/15 Location: ? [facility] ? Receive Date : ? 10/16/2016 Provider: ?CHARLES TORRES MD Copy to: ? Specimen/Source: ? Pap Test, Vagina, ThinPrep Imaging System with manual evaluation Last Menstrual Period: ? 03/2016 Hormonal/Contraceptive Status: ? None Treatment History: ? Yes: TLH/BSO 03/2016 ? SPECIMEN ADEQUACY ? Satisfactory for Evaluation - assessment of transformation zone component not appl icable ( e.g. atrophy, vaginal sample, hysterectomy) GENERAL CATEGORIZATION ? Epithelial Cell Abnormality INTERPRETATION ? Squamous Cell Abnormality - Atypical squamous c ells, undetermined significance (ASC-US). Fungal organisms present morphologically consistent wi th [place] species. EDUCATIONAL NOTES/RECOMMENDATIONS ? [facility] recommends foll owing ASCCP's 2012 Updated Consensus Guidelines for the Management of Abnormal Cervical Cancer Screening T ests and Cancer Precursors (JLGTD, 2013; 17(5):S1-S27). ??Conse nsus guidelines are available online at www.asccp.org. ? Document reviewed and electronically signed by: ? VIRGINIA MELISSA MD ? Report Date: ??10/19/2016 13:35 End of Report Specimen Performing Organization Address City/State/ZIP Code Phon e Number [facility] [address] [place] [address] SERVICES documented in this encounter Visit Diagnoses Not on filedocumented in this encounter Care Teams Vehicle Operator Technician Relationship Specialty Start Date End Date None, Provider PCP - General 06/22/15 09/21/17 Max Buenrostro MD 02/25/[address] [place] [address] [place] [phone] documented as of this encounter
--- OUTSIDE RECORDS SUMMARY | 2022-02-27 15:52 | XMS_ITS | Encounter Summary ---
:1980 Author Organization [facility] Address [address] [place] [address] Care Team Providers Name Role Phone Max Buenrostro MD Unavailable None, Provider Primary Care Provider Unavailable Encounter Details Date Type Department Care Team Description 04/04/2016 Results Only [facility]- Charles Elizondo MD [phone] [place] [address] [address] [place], [place] [address] (Wo rk) Social History Tobacco Use Types Packs/Day Years Used Date Former Smoker Alcohol Use Standard Drinks/Week Comments Not Asked 0 (1 standard drink = 0.6 oz pure alcoho l) Sex Assigned at Date Recorded Not on file documented as of this encounter Plan of Treatment Not on filedocumented as of this encounter Procedures Procedure Name Priority Date/Time Associated Diagnosis Comme [facility] SURGICAL PATHOLOGY Routine 04/04/2016 11:19 Resul ts for this EDT procedure are i n the results section. documented in this encounter Results SURGICAL PATHOLOGY (04/04/2016 11:19 EDT) Pathology Report: SURGICAL PATHOLOGY REPORT [facility] Reports generated via electronic interface conta in original data; [facility] however they are lacking the format of the original re port. SERVICES Caution should be taken when reading/interpreting unfo rmatted reports. Name: ? RAYMOND JARRETT ? Accession #: ? [id number] ? : ? 1980 (Age: 5 3) ??F ? Collect Date: ? 04/04/2016 ? Location: ? [facility] ? Receive Date: ? 6 ? Provider: CHARLES TORRES MD Copy to: ? Final Pathologic Diagnosis: UTERUS, CERVIX, BILATERAL FALLOPIAN TUBES, HYSTERECTOM Y AND BILATERAL SALPINGECTOMY: - Cervix: - No residual squamous intraepithelial lesion identif ied. - Tubal metaplasia and squamous epithelium with react rebeka changes. - Endometrium: - Proliferative endometrium. - Myometrium: - No pathologic features. - Serosa: - No pathologic features. - Fallopian tubes: - No pathologic features. ?? Document reviewed and electronically signed by: KATERINA MASON MD Report ??Date: 04/10/2016 16:48 By the signature above, the attending physician certif ies that he/she has personally conducted a gross and/or microscopic examin ation of the described specimens and rendered or confirmed the above diagnosi s. Specimen(s) Received: Uterus, cervix, tubes Clinical History: LILIA II Gross Description: ? Received in formalin labelled with proper patient identification (initials S, A) and uterus, cervix, and tubes is an intact uterus and cervix (159.2 g, 8.8 cm cervix to fundus x 5. 8 cm cornu to cornu x 4.8 cm anterior to posterior) with two unoriented and deta ched fimbriated fallopian tubes (5.4 cm in length x 0.7 cm in diameter and 4.4 cm in length x 0.7 cm in diameter). The ovaries are not present. ? The uterine serosa is stewart-white and smooth, with multifocal disruption at the site of the surgical cla mps. The endometrium is pink-red and velvety and has a thickness of 0.2 cm. The myometrium is pink-white an d trabeculated and averages 2.2 cm in thickness. No nodules are identified within the myometrium. The ectocervix is white-purple and wrinkled, with prom inent cautery and disruption anteriorly, and the endocervix is stewart-white and furrowed. The fallopian tubes have smooth pink-purple serosa and sectioning discloses a white cut surface with a pinpoint lumen throughout. ? Marketing Area Manager sections are submitted as follow s: BLOCK HOLLOWAY 1-6- ??anterior cervix, entirely submitted 7- ??anterior endomyometrium, full thickness 8-15- ??posterior cervix, entirely submitted 16- ??posterior endomyometrium, full thickness 17- ??shorter fallopian tube 18- ??longer fallopian tube Dr. Almaguer 04/05/2016 4:23 PM End of Report Specimen Performing Organization Address City/State/ZIP Code Phon e Number [facility] [address] [place] [address] SERVICES documented in this encounter Visit Diagnoses Not on filedocumented in this encounter Care Teams Employee Benefits Attorney Relationship Specialty Start Date End Date None, Provider PCP - General 06/22/15 09/21/17 Max Buenrostro MD 02/25/[address] [place] [address] [place] [phone] documented as of this encounter
--- OUTSIDE RECORDS SUMMARY | 2022-02-27 15:52 | XMS_ITS | Encounter Summary ---
:1980 Author Organization [facility] Address [address] [place] [address] Care Team Providers Name Role Phone Unknown, Provider Primary Care Provider Max Buenrostro MD Unavailable Encounter Details Date Type Department Care Team Description 08/27/2014 Hospital Encounter [facility] - S Unknown, Pro Aracelis pickens MD [address] [facility] [phone] [place] [address] (Work) [phone] Social History Tobacco Use Types Packs/Day Years Used Date Never Assessed Sex Assigned at Date Recorded Not on file documented as of this encounter Medications at Time of Discharge Medication Sig Dispensed Refills Start Date End Date acetaminophen (TYLENOL) Take 1,000 mg by 0 500 mg tablet mouth every 6 hours. fluticasone (FLONASE) 50 1 [place] by Nasal 0 mcg/Actuation nasal spray route [...] Code Departure Means Destination Home or Self Senior Living documented in this encounter Plan of Treatment Not on filedocumented as of this encounter Visit Diagnoses Not on filedocumented in this encounter Care Teams Global Manager Relationship Specialty Start Date End Date Unknown, Provider, PCP - General 02/25/13 05/31/15 Max Buenrostro MD 02/25/[address] [place] [address] [place] [phone] documented as of this encounter
--- OUTSIDE RECORDS SUMMARY | 2022-02-27 15:52 | XMS_ITS | Encounter Summary ---
:1980 Author Organization [facility] Address [address] [place] [address] Care Team Providers Name Role Phone Max Buenrostro MD Primary Care Provider Max Buenrostro MD Primary Care Provider Encounter Details Date Type Department Care Team Description 07/04/2007 Results Only [facility] - Neris Woodward, conversion CNM [id number] [place] [address] (Wo rk) Social History Tobacco Use Types Packs/Day Years Used Date Never Assessed Sex Assigned at Date Recorded Not on file documented as of this encounter Plan of Treatment Not on filedocumented as of this encounter Procedures Procedure Name Priority Date/Time Associated Diagnosis Comme nts CYTOPATHOLOGY Routine 07/04/2007 0:00 EDT Results for this procedure are i n the results section . documented in this encounter Results CYTOPATHOLOGY (07/04/2007 0:00 EDT) Pathology Report: CYTOPATHOLOGY REPORT [facility] Reports generated via electronic interface contain altagracia ginal data; however they are lacking the format of the original re port. Caution should be taken when reading/interpreting unfo rmatted reports. Name: ? EYAL HARRINGTON ? Accession #: ? [id number] : ? 1980 (Age: 26) ??F ?Collect Date: ? 1001/2007 Location: ? [facility] ? Receive Date : ? 07/07/2007 Provider: ?NERIS GUERRA CNM Copy to: ? Specimen/Source: ? ThinPrep Pap Test, Cervix/Endocervix, processed on [employer] ThinPrep Imaging System, with manual evaluation Last Menstrual Period: ? 05/11/07 Menstrual/ Status: ? Other: ? HPVA - HPV testing requested if ASC-US on the current ThinPrep Pap test. Additional clinical information: Previous paps WNL ? SPECIMEN ADEQUACY ? Satisfactory for Evaluation - transformation zone component present - scant squamous epithelial component secondary to exc essive inflammation GENERAL CATEGORIZATION ? Negative for Intraepithelial Lesion or Malignan cy ? Document reviewed and electronically signed by: ? TATIANA Bob(ASCP) ? Report Date: ??07/14/2007 15:11 End of Report Specimen Performing Organization Address City/State/ZIP Code Phon e Number [facility] [address] [place] [address] SERVICES [facility] [address] [place] [address] documented in this encounter Visit Diagnoses Not on filedocumented in this encounter Care Teams Immigration Patrol Inspector Relationship Specialty Start Date End Date Max Buenrostro MD PCP - General 07/11/09 02/08/10 [address] [place], [place] [phone] Max Buenrostro MD PCP - General 02/09/10 02/24/13 [address] [place], [place] [phone] documented as of this encounter
--- OUTSIDE RECORDS SUMMARY | 2022-02-27 15:52 | XMS_ITS | Encounter Summary ---
:1980 Author Organization [facility] Address [address] [place] [address] Care Team Providers Name Role Phone Max Buenrostro MD Primary Care Provider Max Buenrostro MD Primary Care Provider Encounter Details Date Type Department Care Team Description 06/26/2006 Results Only [facility] - Charles Bae MD conversion [address] [place] [address] [address] [facility] [address] [place], [place] [id number] [place] [id number] (Wo rk) Social History Tobacco Use Types Packs/Day Years Used Date Never Assessed Sex Assigned at Date Recorded Not on file documented as of this encounter Plan of Treatment Not on filedocumented as of this encounter Procedures Procedure Name Priority Date/Time Associated Diagnosis Comme nts CYTOPATHOLOGY Routine 06/26/2006 0:00 EDT Results for this procedure are i n the results section . documented in this encounter Results CYTOPATHOLOGY (06/26/2006 0:00 EDT) Pathology Report: CYTOPATHOLOGY REPORT [facility] Reports generated via electronic interface contain altagracia ginal data; however they are lacking the format of the original re port. Caution should be taken when reading/interpreting unfo rmatted reports. Name: ? EYAL HARRINGTON ? Accession #: ? [id number] : ? 1980 (Age: 25) ??F ?Collect Date: ? 06/01 Location: ? [facility] ? Receive Date : ? 06/28/2006 Provider: ?CHARLES TORRES MD Copy to: ? Specimen/Source: ? ThinPrep Pap Test, Cervix/Endocervix, processed on [email or web address][employer]fm ThinPrep Imaging System, with manual evaluation Last Menstrual Period: ? Other: ? HPVA - HPV testing requested if ASC-US on the current ThinPrep Pap test. ? SPECIMEN ADEQUACY ? Satisfactory for Evaluation - transformation zone component present GENERAL CATEGORIZATION ? Negative for Intraepithelial Lesion or Malignan cy INTERPRETATION ? Shift in agustin present suggestive of bacterial vaginosis. ? Document reviewed and electronically signed by: ? TATIANA Fernandez(ASCP) ? Report Date: ??07/03/2006 16:17 End of Report Specimen Performing Organization Address City/State/ZIP Code Phon e Number [facility] [address] [place] [address] SERVICES [facility] [address] [place] [address] documented in this encounter Visit Diagnoses Not on filedocumented in this encounter Care Teams Director Of Teacher Education Relationship Specialty Start Date End Date Max Buenrostro MD PCP - General 07/11/09 02/08/[address] [place] [address] Max Buenrostro MD PCP - General 02/09/10 02/24/13 [address] [place], [place] [id number] documented as of this encounter
--- OUTSIDE RECORDS SUMMARY | 2022-02-27 15:52 | XMS_ITS | Encounter Summary ---
:1980 Author Organization [facility] Address [address] [place] [address] Care Team Providers Name Role Phone Unknown, Provider Primary Care Provider Max Buenrostro MD Unavailable Encounter Details Date Type Department Care Team Description 11/19/2014 Results Only [facility] Charles Foley MD Laboratory Services - [address] [place] [address] [facility] [address] [place] [address] [place], [place] [id number] [phone] Social History Tobacco Use Types Packs/Day Years Used Date Never Assessed Sex Assigned at Date Recorded Not on file documented as of this encounter Plan of Treatment Not on filedocumented as of this encounter Procedures Procedure Name Priority Date/Time Associated Diagnosis Comme nts SURGICAL PATHOLOGY Routine 11/19/2014 9:57 EST Re sults for this procedure are i n the results section. PAP TEST- RESULT Routine 11/19/2014 0:00 EST Resu lts for this ONLY procedure are i n the results section. documented in this encounter Results SURGICAL PATHOLOGY (11/19/2014 9:57 EST) Pathology Report: SUR[facility]ICAL [facility]OLOGY REPORT [facility] Reports generated via electronic interface conta in original data; [facility] however they are lacking the format of the original re port. SERVICES Caution should be taken when reading/interpreting unfo rmatted reports. Name: ? ZURI COOLEY ? Accession #: ? [id number] ? : ? 1980 (Age: 33) ??F ? Collect Date: ? 11/19/2014 ? Location: ? [facility] ? Receive Date: ? 015 ? Provider: CHARLES FOLEY MD Copy to: ? Final Pathologic Diagnosis: CERVIX, 7:00, BIOPSY: - ??Low grade squamous intraepithelial lesion (LILIA I). Document reviewed and electronically signed by: KATERINA MASON MD Report ??Date: 2014 15:24 By the signature above, the attending physician certif ies that he/she has personally conducted a gross and/or microscopic examin ation of the described specimens and rendered or confirmed the above diagnosi s. Specimen(s) Received: Cervix 7 o'clock Clinical History: LSIL Pap; LMP: 10/22/2014 Gross Description: ? Received in formalin labelled with proper patient identification (initials B, A) and 7 o'clock is a s danisha pink-stewart tissue fragment (0.7 x 0.4 x 0.3 cm). Submitted intact in 1. Melinda Romano 11/22/2014 8:20 AM End of Report Specimen Performing Organization Address City/State/ZIP Code Phon e Number [facility] [address] [place] [address] SERVICES PAP TEST- RESULT ONLY (11/19/2014 0:00 EST) Pathology Report: CYTOPATHOLOGY REPORT [facility] Reports generated via electronic interface contain altagracia ginal data; SERVICES however they are lacking the format of the original re port. Caution should be taken when reading/interpreting unfo rmatted reports. Name: ? MICHAELLUKEBENEDICT DESHPANDEARACELI NOONAN ? Accession #: ? [id number] ? : ? 1980 (Age: 33) ??F ?Collect Da te: ? 11/19/2014 ? Location: ? [facility] ? Receive Date: ? 015 ? Provider: CHARLES FOLEY MD Copy to: ? Final Report SPECIMEN ADEQUACY ? Satisfactory for Evaluation - transformation zone component present GENERAL CATEGORIZATION ? Epithelial Cell Abnormality INTERPRETATION ? Squamous Cell Abnormality - Low grade squamous intraepithelial lesion (LSIL). EDUCATIONAL NOTES/RECOMMENDATIONS ? FORMERLY [facility], [facility] recommends rani tolbert ASCCP's 2012 Updated Consensus Guidelines for the Management of Abnormal Cervical Cancer Screening T ests and Cancer Precursors (JLGTD, 2013; 17(5):S1-S27). ??Conse nsus guidelines are available online at www.asccp.org. Last Menstrual Period: 10/22/14 Previous Gynecologic Pathology: ASC-US: 06/08 HPV: +HR HPV 06/08, 08/13 LSIL: 08/13 LILIA I: 08/07 Treatment History: LEEP: 08/07 Other: Colposcopy Pap and/or biopsy in progress Specimen/Source: ??Pap Test, Cervix/Endocervix, ThinPr ep Imaging System with manual evaluation Document reviewed and electronically signed by: ? BRE MCCOY MD ? Report ??Date: 11/24/2014 15:44 HPV with Pap Test ? Date Ordered: ? 11/24/2014 ? Status: ?? Signed Out ?Date Complete: ? 11/26/2014 ? By: ??S ystem Interface ? Date Reported: ? 11/26/2014 ? Interpretation RESULT: Positive for high or intermediate risk HPV. E6 OR E7 mRNA from one or more types of HPV types 16,1 8,31, 33,35,39,45,51,52,56,58,59,66, and 68 is detected by family practice medical doctor mediated amplification. High and intermediate risk HPV types are associated wi th most squamous intraepithelial lesions and cervical can cers. Comments Document reviewed and electronically signed by: ? System Interface ? Report date: 11/26/2014 By the signature above, the attending physician certif ies that he/she has personally conducted a gross and/or microscopic examin ation of the described specimens and rendered or confirmed the above diagnosi s. End of Report Specimen Performing Organization Address City/State/ZIP Code Phon e Number [facility] [address] [place] [address] SERVICES documented in this encounter Visit Diagnoses Not on filedocumented in this encounter Care Teams Therapeutic Recreation Specialist Relationship Specialty Start Date End Date Unknown, Provider, PCP - General 02/25/13 Max Buenrostro MD 02/25/[address] [place] [address] [place] [id number] documented as of this encounter
--- OUTSIDE RECORDS SUMMARY | 2022-02-27 15:52 | XMS_ITS | Encounter Summary ---
:1980 Author Organization [facility] Address [address] [place] [address] Care Team Providers Name Role Phone Max Buenrostro MD Unavailable Mary Butler Primary Care Provider Encounter Details Date Type Department Care Team Description 03/10/2020 Lab Requisition [facility] Outr Resulting Lab, Pathology & Laboratory Provider [facility] [address] [place] [address] Social History Tobacco Use Types Packs/Day Years Used Date Former Smoker Alcohol Use Standard Drinks/Week Comments Yes 0 (1 standard drink = 0.6 oz pure alcoho l) Sex Assigned at Date Recorded Not on file documented as of this encounter Plan of Treatment Not on filedocumented as of this encounter Procedures Procedure Name Priority Date/Time Associated Comments Diagnosis DO NOT ORDER Today 03/10/2020 10:56 Results for this STANDALONE - BROAD EDT procedure are in COVID TEST the results section. COVID-19 TESTING Routine 03/10/2020 10:56 Results for this EDT procedure are i n the results section. documented in this encounter Results DO NOT ORDER STANDALONE - BROAD COVID TEST (03/10/2020 10:56 EDT) COVID-19 rt-PCR NEGATIVE Negative [facility] Result Comment: LABORATORY 2019-novel Coronavirus (2019 -nCoV) not detected by the qRT-PCR assay. Consider testing for other respiratory viruses or re-collecting for 2019-nCoV testing. Note: Optimum timing for peak viral levels du ring infections caused by 20 -nCoV have not been determined. Collection of multiple specimens from the same patient may be necessary to detect the virus. Limitations Positive results are indicat rebeka of active infection with SARS-CoV-2 but do not rule out bacterial infection or co-infection with other viruses. The agent detected may not be the definite cause of diseas e. In addition, detection of viral RNA may not indicate the presence of infectious virus or that SARS-CoV-2 is the causative agent for clinical symptoms. Negative results do not prec lude SARS-CoV-2 infection and should not be used as the sole basis for patient management decisions. Negative results must be combined with clinical observations, patient his tory, and epidemiological in formation. False negative results may also occur if amplification inhibitors are present in the specimen or if inadequate numbers of organisms are present in the specimen. Op timum specimen types and holger ing for peak viral levels during infections caused by SARS-CoV-2 have not been fully determined. Collection of multiple specimens (types and time points) from the same patient may be necessary to detect the virus. The test was validated for u se with upper respiratory specimens obtained via nasopharyngeal or oropharyngeal swabs in VTM, UTM, M4, M5, M6, saline, and MTM media. The performance of this test has not be en established for other spe cimens. Specimens collected using other FDA recommended Specimen Collection Materials listed in the FDA COVID-19 [employer] communication (December 24, 2019) are pr ocessed with the caveat that they were not all validated for use with this test and the result must be interpreted in this context. Furthermore, a false negative results may occur if a specimen is improperly collected, transported or handled. If the virus mutates in the RT-PCR target region, SARS-CoV-2 may not be detected or may be detected less predictably. Inhibitors or other types of interference may produce a false negative result. An interference study evaluating the effect of common cold medications was not performed. This test is not FDA-cleared but its performance characteristics were established by our CLIA-certified, CAP-accredited, high complexity laboratory in accordance with CLIA regulations, [employer] (CAP) guidel yaya (Dec 17, 2019), and FDA guidance (Nov 28, 2019). This test is only for use un jacquelyn the Food and Drug Administration's Emergency Use Authorization. Specimen Swab - Entire nasopharynx (body structur e) Performing Organization Address City/State/ZIP Code Phon e Number [facility] [place] [place] COVID-19 TESTING (03/10/2020 10:56 EDT) COVID-19 rt-PCR NEGATIVE Negative [facility] Result Comment: LABORATORY 2019-novel Coronavirus (2019 -nCoV) not detected by the qRT-PCR assay. Consider testing for other respiratory viruses or re-collecting for 2019-nCoV testing. Note: Optimum timing for peak viral levels du ring infections caused by 20 -nCoV have not been determined. Collection of multiple specimens from the same patient may be necessary to detect the virus. Limitations Positive results are indicat rebeka of active infection with SARS-CoV-2 but do not rule out bacterial infection or co-infection with other viruses. The agent detected may not be the definite cause of diseas e. In addition, detection of viral RNA may not indicate the presence of infectious virus or that SARS-CoV-2 is the causative agent for clinical symptoms. Negative results do not prec lude SARS-CoV-2 infection and should not be used as the sole basis for patient management decisions. Negative results must be combined with clinical observations, patient his tory, and epidemiological in formation. False negative results may also occur if amplification inhibitors are present in the specimen or if inadequate numbers of organisms are present in the specimen. Op timum specimen types and holger ing for peak viral levels during infections caused by SARS-CoV-2 have not been fully determined. Collection of multiple specimens (types and time points) from the same patient may be necessary to detect the virus. The test was validated for [facility] with upper respiratory specimens obtained via nasopharyngeal or oropharyngeal swabs in VTM, UTM, M4, M5, M6, saline, and MTM media. The performance of this test has not be en established for other [facility]. Specimens collected using other FDA recommended Specimen Collection Materials listed in the FDA COVID-19 [employer] communication (December 24, 2019) are pr ocessed with the caveat that they were not all validated for use with this test and the result must be interpreted in this context. Furthermore, a false negative results may occur if a specimen is improperly collected, transported or handled. If the virus mutates in the RT-PCR target region, SARS-CoV-2 may not be detected or may be detected less predictably. Inhibitors or other types of interference may produce a false negative result. An interference study evaluating the effect of common cold medications was not performed. This test is not FDA-cleared but its performance characteristics were established by our CLIA-certified, CAP-accredited, high complexity laboratory in accordance with CLIA regulations, [employer] (CAP) guidel yaya (Dec 17, 2019), and FDA guidance (Nov 28, 2019). This test is only for use un jacquelyn the Food and Drug Administration's Emergency Use Authorization. Performing Lab [facility] LABORATORY SERVICES Specimen Swab Performing Organization Address City/State/ZIP Code Phon e Number [facility] [address] [place] [address] SERVICES [facility] [place], [place] documented in this encounter Visit Diagnoses Not on filedocumented in this encounter Care Teams Automotive Title Clerk Relationship Specialty Start Date End Date Mary Butler PA PCP - General 09/22/17 [address] [place], [place] [id number] Max Buenrostro MD 02/25/[address] [place] [address] documented as of this encounter
--- OUTSIDE RECORDS SUMMARY | 2022-02-27 15:52 | XMS_ITS | Encounter Summary ---
:1980 Author Organization [facility] Address [address] [place] [address] Care Team Providers Name Role Phone Max Buenrostro MD Unavailable Mary Butler Primary Care Provider Reason for Visit Reason Comments Cough pt. reporting cough since No v. pt. states that the cough worsened this afternoon while out shopping . lungs CTA in all browning .NAD in triage .no increased WOB Encounter Details Date Type Department Care Team Description 10/09/2017 Emergency [facility] Daphne Stone P A-C [address] [facility], [facility] [address] [place] [address] Cough (Primary Dx) Emergency Department - Emergency, MD Margie [address] [address] Social History Tobacco Use Types Packs/Day Years Used Date Former Smoker Alcohol Use Standard Drinks/Week Comments Yes 0 (1 standard drink = 0.6 oz pure alcoho l) Sex Assigned at Date Recorded Not on file documented as of this encounter Last Filed Vital Signs Vital Sign Reading Time Taken Comments Blood Pressure 112/80 10/09/20172052 EST Pulse 95 10/09/20172052 EST Temperature 36.4 ??C (97.5 ??F) 10/09/2017 222 EST Respiratory Rate 16 10/09/20172223 EST Oxygen Saturation 100% 10/09/2017 222 EST Inhaled Oxygen Concentration - - Weight 50.8 kg (112 lb) 10/09/20172052 EST Height 157.5 cm (5' 2) 10/09/20172052 EST Body Mass Index 20.49 10/09/2017 2053 EST documented in this encounter Discharge Diagnoses Diagnosis R05 Cough-R05[ICD-10-CM] J45.909 Unspecified asthma, uncomplicate d-J45.909[ICD-10-CM] Z87.891 Personal history of nicotine dep endence-Z87.891[ICD-10-CM] Z88.0 Allergy status to penicillin-Z88.0 [ICD-10-CM] Z91.013 Allergy to seafood-Z91.013[ICD-1 0-CM] documented in this encounter Discharge Instructions Daphne Olvera PA - 10/09/2017 21:55 EST Dulera 2 puffs twice per day for cough Albuterol 2 puffs every 4 hours for cough Return for worsening symptoms like pain, difficulty breathing, chest pain Fluids and food as tolerated AttachmentsThe following attachments cannot be sent through Care Everywhere. COUGH (GEORGIAN)documented in this encounter Medications at Time of Discharge Medication Sig Dispensed Refills Start Date End Date acetaminophen (TYLENOL) 500 Take 1,000 mg by 0 mg tablet mouth every 6 hours. fluticasone (FLONASE) 50 1 Bruner by Nasal 0 mcg/Actuation nasal spray route daily. fluticasone-salmeterol Inhale 1 Puff as 0 (ADVAIR) 250-50 mcg/Dose directed every 12 diskus inhaler hours. hydrOXYzine (ATARAX) 25 mg Take 25 mg by mouth 0 tablet 3 times daily. ibuprofen (MOTRIN) 600 mg Take 600 mg by mouth 0 tablet 3 times daily. loratadine (CLARITIN) 10 mg Take 10 mg by mouth 0 tablet daily. methylphenidate HCl Take 20 mg by mouth 0 (RITALIN) 20 mg tablet 3 times daily. QUEtiapine (SEROQUEL) 50 mg Take 100 mg by mouth 0 tablet at bedtime. venlafaxine (EFFEXOR-XR) Take 150 mg by mouth 0 150 mg XR capsule daily. zolpidem (AMBIEN) 10 mg Take 10 mg by mouth 0 tablet at bedtime as needed for Sleep. documented as of this encounter Discharge Disposition Disposition Code Departure Means Destination Home or Self Care Walk-out Home documented in this encounter Progress Notes Irene Mcghee RT - 10/09/2017 2216 EST Respiratory Consult/Progress Note Indications for Respiratory therapy: MDI ordered Data Vitals: Heart Rate: 75 BPM, Resp: 16, SpO2: 100 % FIO2/O2 Device: , , , RT Orders: Bid Dulera, Prn albuterol Protocol Scoring: Bronchodilator/Inhalation Therapy Frequency Bronchodialator - Clinical Indications: History of bronchospasm Breath Sounds: Clear Response: No change / no treatment Pulse: <100 Resp Rate: <18 SOB: With exertion Total Score: 1 Comment:: prn Airway Clearance Therapy Frequency Airway Clearance - Clinical Indications: No clinical indications Breath Sounds: Clear / diminished Sputum: Small (tsp) / None Consistency: None Cough Effort: Strong, non-productive Color: None Total Score: 0 Hyperinflation Therapy Frequency Hyperinflation - Clinical Indications: No clinical indications Breath Sounds: Clear Surgery: No X-Ray / Atelectasis: No O2 Requirements: O2 at baseline Mobility Status: Mobile / at baseline Total: 0 Action/Events Respiratory events; Patient demonstrated proper technique with mdi and spacer She has dry cough. RT ALE 10/09/17 documented in this encounter ED Notes Eliza Elliott RN - 10/09/20176 EST 6: Pt ambulatory from triage w steady gait. Appears in NAD, rr even and unlabored. Resting in bedtalking on phone 2200: RT at bedside for inhaler and spacer use 2220: AVS reviewed with pt. Updated pt med list. Reviewed inhaler use and instructed to f/u with PCPas needed. Aware of s/s to return to eD for reeval. Pt denies further questions or concerns regarding d/c instructions. Ambulatory out of department with steady gait. Daphne Carlos PA - 10/09/20179 EST DOS: 10/09/2017 Chief Complaint Patient presents with ??? Cough pt. reporting cough since Nov. pt. states that the cough worsened this afternoon while out shopping. lungs CTA in all browning .NAD in triage .no increased WOB HPI HPI Comments: I, Dewey Browne, am scribing for Daphne Stone PA while he/she is personally performing the service. Dewey Browne 10/09/2017 21:50 Yolie Swanson is a 36 y.o. female with a history of asthma who presents with a chronic cough that worsened tonight. Patient reports that her son has been in the hospital since Saturday (10/02) and she has not had access to her inhalers (Ventolin and Symbicort). She states she experiences coughing with exertion which resolves when sitting or relaxing. She denies having chills, fever, vomiting, abdominal pain, or ear pain, but endorses slight colorless sputum while coughing. She states she has been eating well and taking fluids normally. Social History: Former smoker. Rare alcohol use. The history is provided by the patient and medical records. Review of Systems Review of Systems Constitutional: Negative for chills and fever. HENT: Negative for ear pain. Respiratory: Positive for cough (productive). Gastrointestinal: Negative for abdominal pain and vomiting. The patient's past medical, family and social history was reviewed and updated as needed. Allergies Allergen Reactions ??? Iodine Containing Multivitamin ??? Penicillins ??? Shellfish Containing Products Vital Signs Vitals Reassessment?: Yes Temp: 36.4 ??C (97.5 ??F) Temp src: Temporal Pulse: 95 Heart Rate: 86 BPM Resp: 16 SpO2: 100 % BP: 112/80 BP MAP: 88 mm Hg BP Device: BP Machine Patient Position: Sitting BP Cuff Location: Left arm O2 Device: None (Room air) Physical Exam Constitutional: She is oriented to person, place, and time. She appears well- developed and well-nourished. No acute distress HENT: Head: Normocephalic and atraumatic. Mouth/Throat: Oropharynx is clear and moist. Bilateral TM without erythema. No erythema in throat. No tonsillar enlargement or exudate. Neck: Neck supple. Cardiovascular: Normal rate. Pulmonary/Chest: Effort normal. No respiratory distress. She has decreased breath sounds. Lungs clear to auscultation. Lymphadenopathy: She has no cervical adenopathy. Neurological: She is alert and oriented to person, place, and time. RESULTS EKG orders: None Radiology orders: None ED Lab Results Labs Reviewed - No data to display Relevant Data Procedures ED COURSE A medical screening exam was performed. Yolie Swanson is a 36 y.o. female with a history of asthma who presents with coughing upon exertion. Upon exam, the patient's tympanic membranes and throat had no erythema and she had no tonsillarenlargement and no exudate. Her neck was supple with no lymphadenopathy, and her heart rate was regular. Lungs clear to ascultation but with decreased breath sounds. She is in no acute distress. Patient received one inhaler starter pack of Albuterol and Dulera was discharged. Prior to discharge my usual and customary return precautions were reviewed with the patient and/or family. This included follow-up instructions and reasons to return to the Emergency Department if condition worsens, does not improve as expected, or other new concerns arise. ASSESSMENT AND PLAN Final diagnoses: Cough DISPOSITION: Discharged The patient's pain was managed to an adequate level weighing risk vs. benefit of further medications. Upon departure from the Emergency Department, the patient's pain was 0 on a zero to ten scale. Any further pain treatment will be at the discretion of the provider following up with the patient based on their clinical assessment. Condition at departure from the Emergency Department: Good PCP: Mary Butler MDM Number of Diagnoses or Management Options Cough: Diagnosis management comments: Cough, medication request, asthma exacerbation 3 Amount and/or Complexity of Data Reviewed Review and summarize past medical records: yes Sung Marrero was available for supervision. 10/10/2017 3:27 No flowsheet data found. This documentation is recorded by Dewey Browne acting as Scribe under the direction and presence of KIRA Haynes. KIRA Haynes: I personally performed the services recorded by the scribe in my presence. I confirm the scribe's documentation has been reviewed by me to accurately and completely record my work, treatment, procedures, and medical decision making. Rob Ribera RN - 10/09/20172052 EST Chief Complaint Patient presents with ??? Cough pt. reporting cough since Nov. pt. states that the cough worsened this afternoon while out shopping. lungs CTA in all browning .NAD in triage .no increased WOB documented in this encounter Plan of Treatment Not on filedocumented as of this encounter Visit Diagnoses Diagnosis Cough - Primary documented in this encounter Administered Medications Inactive Administered Medications - up to 3 most recent administrations Medication Order MAR Action Action Date Dose Rate Site albuterol (VENTOLIN HFA) inhaler Given 10/09/2017 22:13 EST 1 Pa ckage STARTER PACK 1 Package, inhalation, ONCE, 1 dose, Starting on Sat10/09/17 at 2154, Until Sat10/09/17 at 2213, STAT mometasone-formoterol (DULERA) 200-5 Given 10/09/2017 22:14 EST 2 Puffs mcg/actuation inhaler 2 Puff 2 Puff, inhalation, 2 TIMES DAILY, First dose on Sat10/09/17 at 2200, Until Discontinued, STAT documented in this encounter Discontinued Medications Medication Sig Discontinue Reason Start Date End Date amphetamine-dextroamphe Take 20 mg by Patient Stopped Taking 10/09/2017 tamine (ADDERALL) 20 mg mouth daily. tablet citalopram (CELEXA) 20 Take 20 mg by Patient Stopped Taking 10/09/2017 mg tablet mouth daily. clonazepam (KLONOPIN) Take 0.5 mg by Patient Stopped Taking 10/09/2017 0.5 mg tablet mouth 2 times daily. documented as of this encounter Historical Medications This list may reflect changes made after this encounter. Medication Sig Dispensed Refills Start Date End Date methylphenidate HCl (RITALIN) Take 20 mg by 0 20 mg tablet mouth 3 times daily. QUEtiapine (SEROQUEL) 50 mg Take 100 mg by 0 tablet mouth at bedtime. venlafaxine (EFFEXOR-XR) 150 Take 150 mg by 0 mg XR capsule mouth daily. hydrOXYzine (ATARAX) 25 mg Take 25 mg by 0 tablet mouth 3 times daily. added in this encounter Active and Recently Administered Medications Times are shown in EST. Scheduled Medication Order 10/07/2017 10/08/2017 10/09/2017 albuterol (VENTOLIN HFA) inhaler STARTER PACK (COMPLETED) 2213 (Given - Provider: Irene Mcghee, RT) 1 Package, inhalation, ONCE, 1 dose, Sta rting Sat10/09/17 at 2154, Until Discontinued, STAT mometasone-formoterol (DULERA) 200-5 mcg/actuation inhaler 2 Puf f 2214 (Given - Provider: Irene Mcghee, RT) 2 Puff, inhalation, 2 TIMES DAILY, First dose on Sat10/09/17 at 2200, Until Discontinued, STAT documented in this encounter Orders Nursing Count Last Ordered Date First Ordered Date INSTRUCT/ DEMO USE OF SPACER WITH PATIENT 1 2017 documented in this encounter Care Teams Shoulder Boner Relationship Specialty Start Date End Date Mary Butler PA PCP - General 09/22/17 [address] [place] [address] Max Buenrostro MD 02/25/[address] [place] [address] [place] [phone] documented as of this encounter
--- OUTSIDE RECORDS SUMMARY | 2022-02-27 15:52 | XMS_ITS | Encounter Summary ---
:1980 Author Organization [facility] Address [address] [place] [address] Care Team Providers Name Role Phone Max Buenrostro MD Unavailable Mary Butler Primary Care Provider Encounter Details Date Type Department Care Team Description 07/18/2020 Lab Requisition [facility] Outr Resulting Lab, Pathology & Laboratory Provider [facility] [address] [place] [address] Social History Tobacco Use Types [...] Associated Comments Diagnosis DO NOT ORDER Today 07/18/2020 14:26 Results for this STANDALONE - BROAD EDT procedure are in COVID TEST the results section. COVID-19 TESTING Routine 07/18/2020 14:26 Results for this EDT procedure are i n the results section. documented in this encounter Results DO NOT ORDER STANDALONE - BROAD COVID TEST (07/18/2020 14:26 EDT) COVID-19 rt-PCR NEGATIVE Negative [facility] [...] Organization Address City/State/ZIP Code Phon e Number [facility] [place] [place] COVID-19 TESTING (07/18/2020 14:26 EDT) COVID-19 rt-PCR NEGATIVE Negative [facility] Result Comment: LABORATORY 2019-novel Coronavirus (2019 -nCoV) [...] the virus. The test was validated for [facility] with upper respiratory specimens obtained via nasopharyngeal or oropharyngeal swabs in VTM, UTM, M4, M5, M6, saline, and MTM media. The performance of this test has not be en established for other [facility]. Specimens collected using other FDA recommended Specimen [...] Administration's Emergency Use Authorization. Performing Lab [facility] LABORATORY SERVICES Specimen Swab Performing Organization Address City/State/ZIP Code Phon e Number [facility] [address] [place] [address] SERVICES [facility] [place], [place] documented in this encounter Visit Diagnoses Not on filedocumented in this encounter Care Teams Antique Furniture Reproducer Relationship Specialty Start Date End Date Mary Butler PA PCP - General 09/22/17 [address] [place], [place] [id number] Max Buenrostro MD 02/25/[address] [place] [address] [place] [address] documented as of this encounter
--- OUTSIDE RECORDS SUMMARY | 2022-02-27 15:52 | XMS_ITS | Encounter Summary ---
:1980 Author Care Team Providers Name Role Phone Mary Butler Primary Care Provider [phone] Aubrey Rowland MD General Surgeon [phone] Reason for Visit Gastro-esophageal reflux disease with es ophagitis; Migraine with aura; Postoperative hypothyroidism Assessment and Plan 1. Postoperative hypothyroidism 01/16/2022 Going to 112 mcg Synthroid QD . 01/15/2022 Status unknown. Await labs. Be fore we pull the Synthroid lower, will discuss with patient. Unsure if patient has consistently been taking the Synthroid as she should. 10/16/2021 Discussed the labs. Synthroid placed at 125 mcg QD. Test after 8 weeks. RTC in 3 mos. 08/07/2021 Worsening. TSH was too high in summer 2020. Go to 137 mcg and get TSH at the Sep meeting. 07/27/2020 Acceptable thyroid labs. cont inue at same dose of Synthroid = 88mcg QD ? TSH, serum or plasma ? T4, free, serum ? levothyroxine 112 mcg tablet 2. Candidiasis of vagina 01/15/2022 Recurrent issue. Treated agai n with Diflucan (150 mg. 1 QoD x 2 days.) ? fluconazole 150 mg tablet 3. Gastro-esophageal reflux disease wit h esophagitis 01/15/2022 Controlled.The Pantoprazole w orks. 10/16/2021 Stop Pepcid and use the Pantop razole. 4. Migraine with aura 01/15/2022 Fair control. She has an odd sensation at the left hoahaoism, wearing her glasses has helped. Discussion Note: None recorded.Patient educational handouts: No information available. Plan of Care Reminders Provider Appointments Follow up 40 04/03/2022 9:40AM Mary kay PA-C ? Hme 20 08/22/2022 10:00AM Gary hammonds MD Lab TSH, Serum or Plasma 01/15/2022 [facility] Lab (Internal) ? T4, Free, Serum 01/15/2022 [facility] Lab (Internal) Referral None recorded. ? ? Procedures None [...] propionate 50 mcg/actuation nasal spray,prince spension ? Climax 2 sprays twice a day by intranasal [...] Administered None recorded. Vitals Height Weight BMI Blood Pressure 5 ft 2.25 in 160 lbs 16 oz 29.2 kg/m2 110/68 mm[Hg] Results Lab Results Date Name Specimen Result Interpretation Description Value Range Status Address ? 01/15/2022 TSH, Serum S Low Tsh 0.01 0.36-3.74 Final [place] or Plasma uIU/mL uIU/mL [facility] l Lab (Internal) : [address] 01/15/2022 T4, Free, S High Ft4 1.65 NG/dL 0.76-1.46 Fin al [place] Serum NG/dL [facility] (Internal) : [address] Allergies Code Code System Name Reaction Severity Onset Adhesive Tape ? ? ? Bleach (Sodium ? ? ? Hypochlorite) 4053 RxNorm Erythromycin Base ? ? ? Fish Containing Products ? ? ? [id number] RxNorm Latex ? ? ? 906879 RxNorm Milk ? ? ? Penicillins ? ? ? 0506434 RxNorm Trintellix Itching Moderate to Severe ? [...] Procedures Date Name Performed by ? 04/04/2016 [facility] Uterus 250 g or Less Information [...] mRNA, LNP-S, PF, 30 mcg/0.3 mL dose (Genetics Squared) 09/21/2021 11/07/2021 Hep B, adult 01/09/2013?0.5 mL [...] Y Education 12 Notes: Acheived he r RISK INVESTIGATOR Have you been to an area known [...] months? Functional Status No Impairment. Past Encounters 01/15/2022 Postoperative Hypothyroidism; Candidiasi s of Vagina; Gastro-esophageal Reflux Disease with Esophagitis; Migraine with Aura MALENA StuartC: [address] [place] [phone], Ph. 01/10/2022 Meghana Wong PA-C: [address] [place] [address], [facility] [address], [place] [address], Ph. History of Present Illness Note: <div>01/15/22: patient here for follow up GERD taking pantoprazole 40 mg 1 tablet daily.</div><div>Patient here for a follow up migraines. These have been fairly well controlled.</div><div>Patient here for follow up postoperative hypothyroidism s/p thyroidectomy in 2019. Patient currently taking levothyroxine 125 mcg 1 tablet daily. She is exhausted all the time. Not sleeping. </div><div>
</div><div>RoS: Patient states has possible yeastinfection experiencing itching for 2 days. Patient states is trying OTC mono stat but is not relieving the symptom. She wears double clothes because she often feels cold and then she eats sugar, starchy foods, or fruit. Diflucan usually resets her.</div><div>
</div>Review of Systems: ROS as noted in the HPI Review of Systems None recorded. Physical Exam ? Comprehensive PE (female) Reported By: Patient Constitutional: General Appearance: well-dev eloped, overweight. Level of Distress: no apparent distress. Ambula tion: ambulating normally Neck: Neck: trachea midline, no ma sses. Thyroid: non-tender; s/p thyroidectomy Respiratory: Respiratory effort: unlabore d respirations, no use of accessory muscles; clear to ausculatio n Cardiovascular: Heart Auscultation: regular rate and rhythm (RRR) Gastrointestinal: Inspection and Palpation: NANCI Q soft, LUQ non-distended, LUQ no tenderness, LUQ no rebound t enderness, LUQ no mass, LUQ no guarding, LLQ soft, LLQ non- distended, LLQ no tenderness, LLQ no rebound tenderness, LLQ no m ass, LLQ no guarding, RUQ soft, RUQ non-distended, RUQ no tender ness, RUQ no rebound tenderness, RUQ no mass, RUQ no guarding, RLQ s oft, RLQ non-distended, RLQ no tenderness, RLQ no rebound t enderness, RLQ no mass, RLQ no guarding, no guarding, no re bound tenderness, no masses, no costovertebral angle (CVA) t enderness: Musculoskeletal:: Extremities: ; wearing Equil izer boot for an avulsion fracture of left ankle Psychiatric: Mental Status: anxious
--- OUTSIDE RECORDS SUMMARY | 2022-02-27 15:52 | XMS_ITS | Encounter Summary ---
:1980 Author Organization [facility] Address [address] [place] [address] Care Team Providers Name Role Phone Max Buenrostro MD Unavailable Mary Butler Primary Care Provider Encounter Details Date Type Department Care Team Description 11/08/2021 Lab Requisition [facility] Outr Resulting Lab, Pathology & Laboratory Provider [facility] [address] [place] [address] Social History Tobacco Use Types Packs/Day Years Used Date Former Smoker Alcohol Use Standard Drinks/Week Comments Yes 0 (1 standard drink = 0.6 oz pure alcoho l) Sex Assigned at Date Recorded Not on file documented as of this encounter Plan of Treatment Not on filedocumented as of this encounter Procedures Procedure Name Priority Date/Time Associated Diagnosis Comme nts HERPES SIMPLEX Routine 11/08/2021 12:00 Results f or this VIRUS MOLECULAR EST procedure ar e in DETECTION, PCR the results section. documented in this encounter Results HERPES SIMPLEX VIRUS MOLECULAR DETECTION, PCR (11/08/2021 12:00 EST) Pathologist Sig nature Herpes Simplex Virus Negative Negative [facility] Molecular Detection 1, LABORATORY SERVICE S PCR Herpes Simplex Virus Negative Negative [facility] Molecular Detection 2, LABORATORY SERVICE S PCR Specimen Swab - Entire vulva (body structure) Performing Organization Address City/State/ZIP Code Phon e Number [facility] [address] [place] [address] SERVICES documented in this encounter Visit Diagnoses Not on filedocumented in this encounter Care Teams Food Mixer Repairer Relationship Specialty Start Date End Date Mary Butler PA PCP - General 09/22/17 [address] [place] [address] Max Buenrostro MD 02/25/[address] [facility] [address] [place] [phone] documented as of this encounter
--- OUTSIDE RECORDS SUMMARY | 2022-02-27 15:52 | XMS_ITS | Encounter Summary ---
:1980 Author Organization [facility] Address [address] [place] [address] Care Team Providers Name Role Phone Max Buenrostro MD Unavailable Mary Butler Primary Care Provider Encounter Details Date Type Department Care Team Description 02/23/2021 Lab Requisition [facility] Outr Resulting Lab, Pathology & Laboratory Provider General acute hospital [address] [place], [place] [address] Social History Tobacco Use Types Packs/Day Years Used Date Former Smoker Alcohol Use Standard Drinks/Week Comments Yes 0 (1 standard drink = 0.6 oz pure alcoho l) Sex Assigned at Date Recorded Not on file documented as of this encounter Plan of Treatment Not on filedocumented as of this encounter Procedures Procedure Name Priority Date/Time Associated Diagnosis Comme nts LYME AB Routine 02/23/2021 11:00 EDT Results for this procedure are i n the results section . documented in this encounter Results LYME AB (02/23/2021 11:00 EDT) Pathologist Sig nature Lyme Ab NegativeComment: New Negative [facility] 3rd generation assay LABORATORY SERVICES in use 03/09/2020 Specimen Blood - Venous blood (substance) Performing Organization Address City/State/ZIP Code Phon e Number [facility] [address] [place] [address] SERVICES documented in this encounter Visit Diagnoses Not on filedocumented in this encounter Care Teams Automation Machine Operator Relationship Specialty Start Date End Date Mary Butler PA PCP - General 09/22/17 [address] [place], [place] [id number] Max Buenrostro MD 02/25/[address] [place] [address] [place] [phone] documented as of this encounter
--- OUTSIDE RECORDS SUMMARY | 2022-02-27 15:52 | XMS_ITS | Encounter Summary ---
:1980 Author Organization [facility] Address [address] [place] [address] Care Team Providers Name Role Phone Max Buenrostro MD Primary Care Provider Max Buenrostro MD Primary Care Provider Encounter Details Date Type Department Care Team Description 11/17/[address] [facility] - Charles Bae MD conversion [address] [place] [address] [address] [facility] [address] [place], [place] [id number] [place] [id number] (Wo rk) Social History Tobacco Use Types Packs/Day Years Used Date Never Assessed Sex Assigned at Date Recorded Not on file documented as of this encounter Plan of Treatment Not on filedocumented as of this encounter Procedures Procedure Name Priority Date/Time Associated Diagnosis Comme nts CYTOPATHOLOGY Routine 11/17/2004 0:00 EST Results for this procedure are i n the results section . documented in this encounter Results CYTOPATHOLOGY (11/17/2004 0:00 EST) Pathology Report: CYTOPATHOLOGY REPORT [facility] Reports generated via electronic interface contain altagracia ginal data; however they are lacking the format of the original re port. Caution should be taken when reading/interpreting unfo rmatted reports. Name: ? EYAL HARRINGTON ? Accession #: ? [id number] : ? 1980 (Age: 23) ??F ?Collect Date: ? 10/31 Location: ? [facility] ? Receive Date : ? 11/20/2004 Provider: ?CHARLES TORRES MD Copy to: ? Specimen/Source: ?ThinPrep Pap Test, Cervix/ Endocervix Last Menstrual Period: ? 11/06/04 Menstrual/ Status: ? Post Other: ? HPVA - HPV testing requested if ASC-US on the current ThinPrep Pap test. ? SPECIMEN ADEQUACY ? Satisfactory for Evaluation - transformation zone component present GENERAL CATEGORIZATION ? Negative for Intraepithelial Lesion or Malignan cy ? Document reviewed and electronically signed by: ? TATIANA Monae(ASCP) ? Report Date: ??11/22/2004 07:59 End of Report Specimen Performing Organization Address City/State/ZIP Code Phon e Number [facility] [address] [place] [address] SERVICES [facility] [address] [place] [address] documented in this encounter Visit Diagnoses Not on filedocumented in this encounter Care Teams Pharmacy Buyer Relationship Specialty Start Date End Date Max Buenrostro MD PCP - General 07/11/09 02/08/[address] [place] [address] [place] [phone] Max Buenrostro MD PCP - General 02/09/10 02/24/13 [address] [place] [address] [place] [phone] documented as of this encounter
--- OUTSIDE RECORDS SUMMARY | 2022-02-27 15:52 | XMS_ITS | Encounter Summary ---
:1980 Author Organization [facility] Address [address] [place] [address] Care Team Providers Name Role Phone Max Buenrostro MD Primary Care Provider Max Buenrostro MD Primary Care Provider Unknown, Provider Primary Care Provider Max Buenrostro MD Primary Care Provider Max Buenrostro MD Unavailable None, Provider Primary Care Provider Unavailable Mary Butler Primary Care Provider Encounter Details Date Type Department Care Team Description 10/09/2007 Hospital Encounter [facility] - Ken Frank [facility] Arvind Díaz MD 111 [facility] [address] [place], [place] [id number] [place] [address] [place], [address] [place] [id number] (Wo rk) Social History Tobacco Use Types Packs/Day Years Used Date Former Smoker Alcohol Use Standard Drinks/Week Comments Not Asked 0 (1 standard drink = 0.6 oz pure alcoho l) Sex Assigned at Date Recorded Not on file documented as of this encounter Plan of Treatment Not on filedocumented as of this encounter Procedures Procedure Name Priority Date/Time Associated Comments Diagnosis HPV DETECTION, HIGH Routine 06/28/2009 11:49 Resu lts for this RISK TYPES EDT procedure are i n the results section. CYTOPATHOLOGY Routine 06/28/2009 0:00 Results for this EDT procedure are i n the results section. HPV DETECTION, HIGH Routine 06/28/2008 15:15 Resu lts for this RISK TYPES EDT procedure are i n the results section. CYTOPATHOLOGY Routine 06/28/2008 0:00 Results for this EDT procedure are i n the results section. HPV DETECTION, HIGH Routine 04/14/2008 11:00 Resu lts for this RISK TYPES EDT procedure are i n the results section. CYTOPATHOLOGY Routine 04/14/2008 0:00 Results for this EDT procedure are i n the results section. CYTOPATHOLOGY Routine 04/14/2008 0:00 Results for this EDT procedure are i n the results section. HALF-WAY DETAILED 10/09/2007 9:59 Results for this EST procedure are i n the results section. documented in this encounter Results HUMAN PAPILLOMA VIRUS DNA TEST (06/28/2009 11:49 EDT) Specimen Description Cervix, ThinPrep [facility] Result Positive for one or more of HPV types 16,18,31,33,35,39,45,51,52,56,58,59, or 68. These [facility] high/intermediate risk HPV t ypes are associated with dysplasia and some cervical cancers. LAB Report Status Final [facility] 07/13/2009 LAB Specimen Performing Organization Address City/State/ZIP Code Phon e Number [facility] [address] [place] [address] SERVICES [facility] [address] [place] [address] CYTOPATHOLOGY (06/28/2009 0:00 EDT) Pathology Report: CYTOPATHOLOGY REPORT ? [facility] ? LAB Reports generated via Hydrostor interface contain original data; ? however they are lacking the format of the original report. ? Caution should be taken when reading/interpreting unformatted reports. ? Name: ? LOYD HARRINGTON ? Accession #: ? [id number] ? : ? 1980 (Age: 28) ??F ?Collect Date: ? 06/28/2009 ? Location: ? [facility] ? Receive Date: ? 06/30/2009 ? Provider: ?FERNANDA GRACE APRN ? Copy to: ? Specimen/Source: ? Pap Test, Cervix, ThinPrep Imaging System with manual ?? evaluation ? Last Menstrual Period: ? 8/26/09 ? Treatment History: ? LEEP: 11/08 ? Other: ? HPVA - HPV testing requested if ASC-US on the current ThinPrep Pap test. ? SPECIMEN ADEQUACY ? Satisfactory for Eval uation ? - transformation zone compon ent present ? GENERAL CATEGORIZATION ? Epithelial Cell Abnor mality ? INTERPRETATION ? Squamous Cell Abnorma lity - Atypical squamous cells, undetermined ? significance (ASC-US). ? EDUCATIONAL NOTES/RECOMMENDA TIONS ? [facility] recommends follo wing the 2006 Consensus Guidelines for the Management of Women with Abnormal Cervi cinthya Cancer Screening Tests (JLGTD, ? 2007;11(4):201-222). ??Conse nsus guidelines are available online at ? www.ASCCP.org. ? Document reviewed and electr onically signed by: ? Ish Henley , MD ? Report Date: ??10/07/ 2009 15:46 ? End of Report ? Specimen Performing Organization Address [facility]/ZIP Code Phon e Number [facility] [address] [place] [address] SERVICES [facility] [address] [place] [address] HUMAN PAPILLOMA VIRUS DNA TEST (06/28/2008 15:15 EDT) Specimen Description Cervix, ThinPrep [facility] Result Positive for one or more of HPV types 16,18,31,33,35,39,45,51,52,56,58,59, or 68. These [facility] [place]UL[place] high/intermediate risk HPV t ypes are associated with dysplasia and some cervical cancers. LAB Report Status Final [facility] 07/08/2008 LAB Specimen Performing Organization Address [facility] Phon e Number [facility] [address] [place] [address] SERVICES [facility] [address] [place] [address] CYTOPATHOLOGY (06/28/2008 0:00 EDT) Pathology Report: CYTOPATHOLOGY REPORT ? [facility] ? LAB Reports generated via Hydrostor interface contain original data; ? however they are lacking the format of the original report. ? Caution should be taken when reading/interpreting unformatted reports. ? Name: ? MESECK, ANNAMARI E ? Accession #: ? [id number] ? : ? 1980 (Age: 27) ??F ?Collect Date: ? 06/28/2008 ? Location: ? [facility] ? Receive Date: ? 06/30/2008 ? Provider: ?PETER STUA RT MD ? Copy to: ? Specimen/Source: ? Pap Test, Cervix/Endocervix, ThinPrep Imaging System ? with manual evaluation ? Last Menstrual Period: ? 7/16/08 ? Hormonal/Contraceptive Statu s: ? Intrauterine device: Mirena ? Previous Gynecologic Patholo gy: ? ASC-US ? HPV: +HR HPV 7/08 ? Other: ? HPVDX - HPV testing requeste d regardless of diagnosis on current ThinPrep Pap ?? test. ? SPECIMEN ADEQUACY ? Satisfactory for Eval uation ? - transformation zone compon ent present ? - scant squamous epithelial component secondary to excessive blood ? GENERAL CATEGORIZATION ? Epithelial Cell Abnor mality ? INTERPRETATION ? Squamous Cell Abnorma lity - Atypical squamous cells, undetermined ? significance (ASC-US). ? EDUCATIONAL NOTES/RECOMMENDA TIONS ? FA recommends rani tolbert the 2006 Consensus Guidelines for the Management of Women with Abnormal Cervi cinthya Cancer Screening Tests (JLGTD, ? 2007;11(4):201-222). ??Conse nsus guidelines are available online at ? www.ASCCP.org. ? Document reviewed and electr onically signed by: ? Tavia Mount, MD ? Report Date: ??10/06/ 2008 11:30 ? End of Report ? Specimen Performing Organization Address City/[facility]/ZIP Code Phon e Number [facility] [address] [place] [address] SERVICES [facility] [address] [place] [address] HUMAN PAPILLOMA VIRUS DNA TEST (04/14/2008 11:00 EDT) Specimen Description Cervix, ThinPrep [facility] Result Positive for one or more of HPV types 16,18,31,33,35,39,45,51,52,56,58,59, or 68. These [facility] PAULINO high/intermediate risk HPV t ypes are associated with dysplasia and some cervical cancers. LAB Report Status Final [facility] [id number] LAB Specimen Performing Organization Address City/[facility] Code Phon e Number [facility] [address] [place] [address] SERVICES [facility] [address] [place] [address] CYTOPATHOLOGY (04/14/2008 0:00 EDT) Pathology Report: CYTOPATHOLOGY REPORT [facility] Reports generated via electronic interface contain altagracia ginal data; however they are lacking the format of the original re port. Caution should be taken when reading/interpreting unfo rmatted reports. Name: ? EYAL HARRINGTON ? Accession #: ? [id number] : ? 1980 (Age: 27) ??F ?Collect Date: ? 03/30 Location: ? [facility] ? Receive Date : ? 04/16/2008 Provider: ?CHARLES TORRES MD Copy to: ? Specimen/Source: ? ThinPrep Pap Test, Cervix/Endocervix, processed on [employer] ThinPrep Imaging System, with manual evaluation Last Menstrual Period: ? 03/26/08 Menstrual/ Status: ? Post Other: ? HPVA - HPV testing requested if ASC-US on the current ThinPrep Pap test. ? SPECIMEN ADEQUACY ? Satisfactory for Evaluation - transformation zone component present GENERAL CATEGORIZATION ? Epithelial Cell Abnormality INTERPRETATION ? Squamous Cell Abnormality - Atypical squamous c ells, undetermined significance (ASC-US). EDUCATIONAL NOTES/RECOMMENDATIONS ? [facility] recommends rani tolbert the 2006 Consensus Guidelines for the Management of Women with Abnormal Cervical Cancer Screening Tests (JLGTD, 2007;11(4):201-222). ??Consensus guidelines are availa ble online at www.ASCCP.org. ? Document reviewed and electronically signed by: ? Lila Kemp MD ? Report Date: ??04/25/2008 11:44 End of Report Specimen Performing Organization Address City/State/ZIP Code Phon e Number [facility] [address] [place] [address] SERVICES [facility] [address] [place] [address] CYTOPATHOLOGY (04/14/2008 0:00 EDT) Pathology Report: CYTOPATHOLOGY REPORT ? [facility] ? LAB Reports generated via Hydrostor interface contain original data; ? however they are lacking the format of the original report. ? Caution should be taken when reading/interpreting unformatted reports. ? Name: ? LOYD HARRINGTON ? Accession #: ? [id number] ? : ? 1980 (Age: 27) ??F ?Collect Date: ? 04/14/2008 ? Location: ? [facility] ? Receive Date: ? 04/16/2008 ? Provider: ?PETER STUA RT MD ? Copy to: ? Specimen/Source: ? ThinPrep Pap Test, Cervix/Endocervix, processed on [employer] ThinPrep Imaging System, wit h manual evaluation ? Last Menstrual Period: ? 6/27/08 ? Menstrual/ Status: ? Post ? Other: ? HPVA - HPV testing requested if ASC-US on the current ThinPrep Pap test. ? SPECIMEN ADEQUACY ? Satisfactory for Eval uation ? - transformation zone compon ent present ? GENERAL CATEGORIZATION ? Epithelial Cell Abnor mality ? INTERPRETATION ? Squamous Cell Abnorma lity - Atypical squamous cells, undetermined ? significance (ASC-US). ? EDUCATIONAL NOTES/RECOMMENDA TIONS ? FA recommends follo wing the 2006 Consensus Guidelines for the Management of Women with Abnormal Cervi cinthya Cancer Screening Tests (JLGTD, ? 2007;11(4):201-222). ??Conse nsus guidelines are available online at ? www.ASCCP.org. ? Document reviewed and electr onically signed by: ? Lila C Kemp MD ? Report Date: ??07/27/ 2008 11:44 ? End of Report ? Specimen Performing Organization Address City/[facility]/ZIP Code Phon e Number [facility] [address] [place] [address] SERVICES [facility] [address] [place] [address] HALF-WAY DETAILED (10/09/2007 9:59 EST) Anatomical Region Laterality Modality Other Specimen Narrative [facility] - 03/21/2009 3: 48 EDT DETAILED,58395/ABNORMAL OUTSIDE U/S FINDING,RIGHT LATERAL VENTICLE LARGER THAN LEFT Please refer to the separate [facility] re port. ??Contact Maternal Medicine. Procedure Note Ken Frank MD - 03/21/2009 DETAILED,51397/ABNORMAL OUTSIDE U/S FIN DING,RIGHT LATERAL VENTICLE LARGER THAN LEFT Please refer to the separate [employer] re port. Contact Maternal Medicine. Performing Organization Address City/State/ZIP Code Phon e Number [facility] [address] [facility] [address] [facility] [address] [place], [place] [address] documented in this encounter Visit Diagnoses Not on filedocumented in this encounter Care Teams Boardmarker Relationship Specialty Start Date End Date Max Buenrostro MD PCP - General 07/11/09 02/08/[address] [place] [address] [place] [phone] Max Buenrostro MD PCP - General 02/09/10 02/24/[address] [facility] [address] [phone] Unknown, Provider, PCP - General 02/25/13 05/31/15 Max Buenrostro MD PCP - General 06/01/15 06/21/15 None, Provider PCP - General 06/22/15 09/21/17 Mary Butler PA PCP - General 09/22/[address] [place] [address] Max Buenrostro MD 02/25/[address] [facility] [address] [place] [phone] documented as of this encounter
--- OUTSIDE RECORDS SUMMARY | 2022-02-27 15:52 | XMS_ITS | Encounter Summary ---
:1980 Author Organization [facility] Address [address] [place] [address] Care Team Providers Name Role Phone Max Buenrostro MD Primary Care Provider Max Buenrostro MD Unavailable Encounter Details Date Type Department Care Team Description 06/17/2015 Hospital Encounter [facility] - S Unknown, Pro Aracelis pickens MD 1 [facility] [phone] [place] [address] (Work) [phone] Social History Tobacco Use Types Packs/Day Years [...] every 6 hours. fluticasone (FLONASE) 50 1 [place] by Nasal 0 mcg/Actuation nasal spray route [...] Code Departure Means Destination Home or Self Correction documented in this encounter Plan of Treatment Not on filedocumented as of this encounter Visit Diagnoses Not on filedocumented in this encounter Care Teams Gear Setter Relationship Specialty Start Date End Date Max Buenrostro MD PCP - General 06/01/15 06/21/15 Max Buenrostro MD 02/25/[address] [place] [address] [place] [phone] documented as of this encounter
--- OUTSIDE RECORDS SUMMARY | 2022-02-27 15:52 | XMS_ITS | Encounter Summary ---
:1980 Author Organization [facility] Address [address] [place] [address] Care Team Providers Name Role Phone Max Buenrostro MD Unavailable Mary Butler Primary Care Provider Encounter Details Date Type Department Care Team Description 05/22/2021 Lab Requisition [facility] Outr Resulting Lab, Pathology & Laboratory Provider [facility] [address] [place] [address] Social History Tobacco Use Types Packs/Day Years Used Date Former Smoker Alcohol Use Standard Drinks/Week Comments Yes 0 (1 standard drink = 0.6 oz pure alcoho l) Sex Assigned at Date Recorded Not on file documented as of this encounter Plan of Treatment Not on filedocumented as of this encounter Procedures Procedure Name Priority Date/Time Associated Comments Diagnosis HEPATITIS C AB W Routine 05/22/2021 14:00 Results for this REFLEX TO HCV RNA BY EDT procedu re are in PCR the results section. HIV 1/2 ANTIGEN AND Routine 05/22/2021 14:00 Resu lts for this ANTIBODY, 4TH EDT procedure are in GENERATION the results section. documented in this encounter Results HIV 1/2 ANTIGEN AND ANTIBODY, 4TH GENERATION (05/22/2021 14:00 EDT) HIV 1 and 2 Negative Negative [facility] Antibody/p24 Comment: LABORATORY Antigen, 4th If acute HIV-1 infection is suspected in a high risk ??patient, submit plasma specimen for HIV-1 RNA quantitation test. SERV ICES Generation Fourth Generation assay performed on the Siemens Tethys BioSciencea ur. Specimen Blood - Venous blood (substance) Performing Organization Address City/State/ZIP Code Phon e Number [facility] [address] [place] [address] SERVICES HEPATITIS C AB W REFLEX TO HCV RNA BY PCR (05/22/2021 14:00 EDT) Pathologist Sig nature Hep C Antibody Negative Negative [facility] SERVICES Specimen Blood - Venous blood (substance) Performing Organization Address City/State/ZIP Code Phon e Number [facility] [address] [place] [address] SERVICES documented in this encounter Visit Diagnoses Not on filedocumented in this encounter Care Teams Merchandise Distributor Relationship Specialty Start Date End Date Mary Butler PA PCP - General 09/22/17 [address] [place], [place] [address] Max Buenrostro MD 02/25/[address] [place] [address] [place] [phone] documented as of this encounter
--- OUTSIDE RECORDS SUMMARY | 2022-02-27 15:52 | XMS_ITS | Encounter Summary ---
:1980 Author Organization [facility] Address [address] [place] [address] Care Team Providers Name Role Phone Max Buenrostro MD Unavailable Mary Butler Primary Care Provider Encounter Details Date Type Department Care Team Description 04/14/2020 Lab Requisition [facility] Outr Resulting Lab, Pathology & Laboratory Provider [facility] [address] [place], [place] [id number] Social History Tobacco Use Types Packs/Day Years Used Date Former Smoker Alcohol Use Standard Drinks/Week Comments Yes 0 (1 standard drink = 0.6 oz pure alcoho l) Sex Assigned at Date Recorded Not on file documented as of this encounter Plan of Treatment Not on filedocumented as of this encounter Procedures Procedure Name Priority Date/Time Associated Diagnosis Comme nts T3, TOTAL Routine 04/14/2020 14:35 EDT Results for this procedure are i n the results section . documented in this encounter Results T3, TOTAL (04/14/2020 14:35 EDT) Pathologist Sig nature T3, Total 152 97 - 169 ng/dL [facility] Specimen Blood - Venous blood (substance) Performing Organization Address City/State/ZIP Code Phon e Number [facility] [address] [place] [address] SERVICES documented in this encounter Visit Diagnoses Not on filedocumented in this encounter Care Teams Supervisor Customer Services Relationship Specialty Start Date End Date Mary Butler PA PCP - General 09/22/17 [address] [place], [place] [id number] Max Buenrostro MD 02/25/[address] [place] [address] [place] [phone] documented as of this encounter
--- OUTSIDE RECORDS SUMMARY | 2022-02-27 15:52 | XMS_ITS | Encounter Summary ---
:1980 Author Organization [facility] Address [address] [place] [address] Care Team Providers Name Role Phone Max Buenrostro MD Unavailable Mary Butler Primary Care Provider Encounter Details Date Type Department Care Team Description 09/20/2020 Lab Requisition [facility] Outr Resulting Lab, Pathology & Laboratory Provider [facility] [address] [place] [address] Social History Tobacco Use Types [...] Associated Comments Diagnosis DO NOT ORDER Today 09/20/2020 10:28 Results for this STANDALONE - BROAD EST procedure are in COVID TEST the results section. COVID-19 TESTING Routine 09/20/2020 10:28 Results for this EST procedure are i n the results section. documented in this encounter Results DO NOT ORDER STANDALONE - BROAD COVID TEST (09/20/2020 10:28 EST) COVID-19 rt-PCR NEGATIVE Negative [facility] Result [...] Organization Address City/State/ZIP Code Phon e Number [facility] [place] COVID-19 TESTING (09/20/2020 10:28 EST) COVID-19 rt-PCR NEGATIVE Negative [facility] Result Comment: LABORATORY 2019-novel Coronavirus (2019 [...] the virus. The test was validated for [facility] with upper respiratory specimens obtained via nasopharyngeal or oropharyngeal swabs in VTM, UTM, M4, M5, M6, saline, and MTM media. The performance of this test has not be en established for other public health service hospitalens. Specimens collected using other FDA recommended Specimen [...] Administration's Emergency Use Authorization. Performing Lab [facility] LABORATORY SERVICES Specimen Swab Performing Organization Address City/State/ZIP Code Phon e Number [facility] [address] [place] [address] [facility] [place], [place] documented in this encounter Visit Diagnoses Not on filedocumented in this encounter Care Teams Saddle Stitch Operator Relationship Specialty Start Date End Date Mary Butler PA PCP - General 09/22/[address] [place] [id number] aMx Buenrostro MD 02/25/[address] [place] [address] [place] [phone] documented as of this encounter
--- OUTSIDE RECORDS SUMMARY | 2022-02-27 15:52 | XMS_ITS | Encounter Summary ---
:1980 Author Organization [facility] Address [address] [place] [address] Care Team Providers Name Role Phone Unknown, Provider Primary Care Provider Oswald Buenrostro MD Unavailable Encounter Details Date Type Department Care Team Description 02/25/2013 Results Only [facility] Saloni Hoang MD Laboratory Services - [address] [place] [address] [place] [address] [place] [address] [phone] Social History Tobacco Use Types Packs/Day Years Used Date Never Assessed Sex Assigned at Date Recorded Not on file documented as of this encounter Plan of Treatment Not on filedocumented as of this encounter Procedures Procedure Name Priority Date/Time Associated Diagnosis Comme [facility] SURGICAL PATHOLOGY Routine 02/25/2013 9:49 EDT Re sults for this procedure are i n the results section. documented in this encounter Results SURGICAL PATHOLOGY (02/25/2013 9:49 EDT) Pathology Report: SURGICAL PATHOLOGY REPORT [facility] Reports generated via electronic interface contain altagracia ginal data; LAB however they are lacking the format of the original re port. Caution should be taken when reading/interpreting unfo rmatted reports. Name: ? ZURI COOLEY ? Accession #: ? [id number] ? : ? 1980 (Age: 32) ??F ? Collect Date: ? 02/25/2013 ? Location: ? [facility] ? Receive Date: ? 013 ? Provider: JEN HOANG MD Copy to: OSWALD TORRES MD ? Final Pathologic Diagnosis: ? Skin of subcutaneous tissue, site not further s pecified, excision: - Subcutaneous fibrosis with synovial-like metaplasia and foreign body giant cell reaction. ??See ??comment. Comment: ? The excision has variable subcutaneous fibrosis with areas having a synovial-like metaplasia and myxoid stroma. ??No epith elial-lined cyst is evident. ??There are occasional clusters of foreign sigifredo dy giant cells but no definitive suture material i s identified. ??There is no evidence of a neoplastic process. ??Dr. Lila Canales has reviewed this case and concurs with the diagnosis. (Dr. Salmon)/[facility] Microscopic Description: ? Sections consist of a n irregular portion of skin with underlying subcutis. The epidermis and dermis are relatively unremarkable. ??Within the subcutaneous tissue, there is a spindle c ell proliferation that is multinodular and partially cystic. ??The spindle cells have elongate, fairl y uniform nuclei. ??Along the cyst, there are plump polygo nal cells. ??The cyst is not lined by an epithelium. There is fibrin within the cyst and some of the fibrin appears to have organization. ??The surround ing stroma is loose and has areas of myxoid change. There are rare clusters of multinucleate foreign body- type giant cells. ??No definitive polarizable or non-polarizable foreig n material is evident. ??(Dr. Salmon)/mpl Document reviewed and electronically signed by: HAILEE SALMON MD Report ??Date: 03/03/2013 14:56 By the signature above, the attending physician certif ies that he/she has personally conducted a gross and/or microscopic examin ation of the described specimens and rendered or confirmed the above diagnosi s. Specimen(s) Received: ? Skin cyst/FB reaction to suture Clinical History: ? Skin cyst; foreign body reaction to suture Gross Description: ? Received in formalin labelled Yolie Cooley and skin cyst/foreign body reaction to suture is a 2.1 x 1.1 x 1.1 cm irregular, stewart-mullen, focally stewart-yellow fibrofatty tissue fragment with an ov erlying ellipse of stewart-white, smooth to wrinkled skin measuring 1.0 x 0.5 cm. ??The margins are inked. ??The specimen is serially sectioned and entirely submitted as follows: BLOCK HOLLOWAY 1 ?Central sections 2 ? Underlying tissue with no overlying skin 3 ? Tips, reverse en face ? (Wilda Guerrero)/jai End of Report Specimen Performing Organization Address City/State/ZIP Code Phon e Number [facility] [address] [place] [address] SERVICES [facility] [address] [place] [address] documented in this encounter Visit Diagnoses Not on filedocumented in this encounter Care Teams Account Officer Relationship Specialty Start Date End Date Unknown, Provider, PCP - General 02/25/13 05/31/15 Oswald Buenrostro MD 02/25/[address] [place] [address] [place] [phone] documented as of this encounter
--- OUTSIDE RECORDS SUMMARY | 2022-02-27 15:52 | XMS_ITS | Encounter Summary ---
:1980 Author Organization [facility] Address [address] [place] [address] Care Team Providers Name Role Phone Unknown, Provider Primary Care Provider Max Buenrostro MD Unavailable Encounter Details Date Type Department Care Team Description 05/20/2015 Hospital Encounter [facility]- Kika Unknown, Provider, [facility] [address] [facility] [phone] [place] [address] (Work) [phone] Social History Tobacco Use Types Packs/Day Years Used Date Never Assessed Sex Assigned at Date Recorded Not on file documented as of this encounter Medications at Time of Discharge Medication Sig Dispensed Refills Start Date End Date acetaminophen (TYLENOL) Take 1,000 mg by 0 500 mg tablet mouth every 6 hours. fluticasone (FLONASE) 50 1 [place] by Nasal 0 mcg/Actuation nasal spray route [...] Code Departure Means Destination Home or Self Penitentiary documented in this encounter Plan of Treatment Not on filedocumented as of this encounter Visit Diagnoses Not on filedocumented in this encounter Care Teams Door Slinger Relationship Specialty Start Date End Date Unknown, Provider, PCP - General 02/25/13 05/31/15 Max Buenrostro MD 02/25/[address] [facility] [address] [place] [phone] documented as of this encounter
--- OUTSIDE RECORDS SUMMARY | 2022-02-27 15:52 | XMS_ITS | Encounter Summary ---
:1980 Author Organization [facility] Address [address] [place] [address] Care Team Providers Name Role Phone Max Buenrostro MD Primary Care Provider Max Buenrostro MD Primary Care Provider Encounter Details Date Type Department Care Team Description 03/08/2004 Results Only [facility] - Charles Bae MD conversion [address] [place] [address] [address] [facility] [address] [place], [place] [id number] [place] [phone] (Wo rk) Social History Tobacco Use Types Packs/Day Years Used Date Never Assessed Sex Assigned at Date Recorded Not on file documented as of this encounter Plan of Treatment Not on filedocumented as of this encounter Procedures Procedure Name Priority Date/Time Associated Diagnosis Comme nts CYTOPATHOLOGY Routine 03/08/2004 0:00 EDT Results for this procedure are i n the results section . documented in this encounter Results CYTOPATHOLOGY (03/08/2004 0:00 EDT) Pathology Report: CYTOPATHOLOGY REPORT [facility] Reports generated via electronic interface contain altagracia ginal data; however they are lacking the format of the original re port. Caution should be taken when reading/interpreting unfo rmatted reports. Name: ? EYAL COOLEY ? Accession #: ? [id number] : ? 1980 (Age: 23) ??F ?Collect Date: ? 05/2004 Location: ? [facility] ? Receive Date : ? 03/10/2004 Provider: ?CHARLES TORRES MD Copy to: ? Specimen/Source: ?ThinPrep Pap Test, Cervix/ Endocervix Last Menstrual Period: ? 01/11/04 Menstrual/ Status: ? Other: ? HPVA - HPV testing requested if ASC-US on the current ThinPrep Pap test. ? SPECIMEN ADEQUACY ? Satisfactory for Evaluation - transformation zone component present GENERAL CATEGORIZATION ? Negative for Intraepithelial Lesion or Malignan cy INTERPRETATION ? Fungal organisms pres ent morphologically consistent with Poonam species. ? Document reviewed and electronically signed by: ? Latosha Garcia, SCT(ASCP) ? Report Date: ??03/15/2004 11:20 End of Report Specimen Performing Organization Address City/State/ZIP Code Phon e Number [facility] [address] [place] [address] SERVICES [facility] [address] [place] [address] documented in this encounter Visit Diagnoses Not on filedocumented in this encounter Care Teams Heat And Vent Aircraft Mechanic Relationship Specialty Start Date End Date Max Buenrostro MD PCP - General 07/11/09 02/08/[address] [place] [address] Max Buenrostro MD PCP - General 02/09/10 02/24/13 [address] [place] [address] documented as of this encounter
--- OUTSIDE RECORDS SUMMARY | 2022-02-27 15:52 | XMS_ITS | Encounter Summary ---
:1980 Author Organization [facility] Address [address] [place] [address] Care Team Providers Name Role Phone Max Buenrostro MD Primary Care Provider Encounter Details Date Type Department Care Team Description 01/22/2011 Results Only [facility] Charles Foley MD Laboratory Services - [address] [place] [address] [facility] [address] [place] [address] [place], [place] [address] [phone] Social History Tobacco Use Types Packs/Day Years Used Date Former Smoker Alcohol Use Standard Drinks/Week Comments Not Asked 0 (1 standard drink = 0.6 oz pure alcoho l) Sex Assigned at Date Recorded Not on file documented as of this encounter Plan of Treatment Pending Results Name Type Priority Associated Diagnoses Date/Ti me CYTOPATHOLOGY Pathology Routine 01/22/2011 0:0 0 EDT documented as of this encounter Procedures Procedure Name Priority Date/Time Associated Diagnosis Comme nts PAP TEST- RESULT Routine 01/22/2011 0:00 EDT Resu lts for this ONLY procedure are i n the results section. documented in this encounter Results PAP TEST- RESULT ONLY (01/22/2011 0:00 EDT) Pathology Report: CYTOPATHOLOGY REPORT ? [facility] ? LAB Reports generated via electr onic interface contain original data; ? however they are lacking the format of the original report. ? Caution should be taken when reading/interpreting unformatted reports. ? Name: ? JUANY, LOYD E ? Accession #: ? [id number] ? : ? 1980 (Age: 30) ??F ?Collect Date: ? 01/22/2011 ? Location: ? [facility] ? Receive Date: ? 01/23/2011 ? Provider: ?CHARLES WHITING RT MD ? Copy to: ? Specimen/Source: ? Pap Test, Cervix/Endocervix, ThinPrep Imaging System ? with manual evaluation ? Last Menstrual Period: ? 11/13/2010 ? Menstrual/ Status: ? SPECIMEN ADEQUACY ? Satisfactory for Eval uation ? - transformation zone compon ent present ? GENERAL CATEGORIZATION ? Negative for Intraepi thelial Lesion or Malignancy ? Document reviewed and electr onically signed by: ? Latosha Garcia, SCT( ASCP) ? Report Date: ??04/28/ 2011 14:19 ? End of Report ? Specimen Performing Organization Address City/State/[facility] Code Phon e Number [facility] [address] [place] [address] SERVICES [facility] [address] [place] [address] documented in this encounter Visit Diagnoses Not on filedocumented in this encounter Care Teams Tail End Rider Relationship Specialty Start Date End Date Max Buenrostro MD PCP - General 02/09/10 02/24/[address] [place], [place] [phone] documented as of this encounter
--- OUTSIDE RECORDS SUMMARY | 2022-02-27 15:52 | XMS_ITS | Encounter Summary ---
:1980 Author Organization [facility] Address [address] [place] [address] Care Team Providers Name Role Phone Max Buenrostro MD Unavailable Mary Butler Primary Care Provider Encounter Details Date Type Department Care Team Description 10/27/2019 Lab Requisition [facility] Unknown, Provider, Pathology & Laboratory [facility] [address] [place] [address] [place], [place] [id number] Social History Tobacco Use Types Packs/Day Years Used Date Former Smoker Alcohol Use Standard Drinks/Week Comments Yes 0 (1 standard drink = 0.6 oz pure alcoho l) Sex Assigned at Date Recorded Not on file documented as of this encounter Plan of Treatment Not on filedocumented as of this encounter Procedures Procedure Name Priority Date/Time Associated Comments Diagnosis HEPATITIS C AB W Routine 10/27/2019 15:45 Results for this REFLEX TO HCV RNA BY EST procedu re are in PCR the results section. HIV 1/2 ANTIGEN AND Routine 10/27/2019 15:45 Resu lts for this ANTIBODY, 4TH EST procedure are in GENERATION the results section. documented in this encounter Results HEPATITIS C AB W REFLEX TO HCV RNA BY PCR (10/27/2019 15:45 EST) Pathologist Sig nature Hep C Antibody Negative Negative [facility] Specimen Blood - Venous blood (substance) Performing Organization Address City/State/ZIP Code Phon e Number [facility] [address] [place] [address] SERVICES HIV 1/2 ANTIGEN AND ANTIBODY, 4TH GENERATION (10/27/2019 15:45 EST) HIV 1 and 2 Negative Negative [facility] Antibody/p24 Comment: LABORATORY Antigen, 4th SERVICES Generation If acute HIV-1 infection is suspected in a high risk ??patient, submit plasma specimen for HIV-1 RNA quantitation test. Fourth Generation assay performed on the [facility]. Specimen Blood - Venous blood (substance) Performing Organization Address City/State/ZIP Code Phon e Number [facility] [address] [place] [address] SERVICES documented in this encounter Visit Diagnoses Not on filedocumented in this encounter Care Teams Preparole Counseling Aide Relationship Specialty Start Date End Date Mary Butler PA PCP - General 09/22/17 [address] [place] [address] Max Buenrostro MD 02/25/[address] [place] [phone] documented as of this encounter
--- OUTSIDE RECORDS SUMMARY | 2022-02-27 15:52 | XMS_ITS | Encounter Summary ---
:1980 Author Organization [facility] Address [address] [place] [address] Care Team Providers Name Role Phone Max Buenrostro MD Unavailable Mary Butler Primary Care Provider Encounter Details Date Type Department Care Team Description 02/23/2021 Lab Requisition [facility] Outr Resulting Lab, Pathology & Laboratory Provider [facility] [address] [place] [id number] Social History Tobacco Use Types Packs/Day Years Used Date Former Smoker Alcohol Use Standard Drinks/Week Comments Yes 0 (1 standard drink = 0.6 oz pure alcoho l) Sex Assigned at Date Recorded Not on file documented as of this encounter Plan of Treatment Not on filedocumented as of this encounter Procedures Procedure Name Priority Date/Time Associated Comments Diagnosis ALPHA 1 ANTITRYPSIN Routine 02/23/2021 11:00 Resu lts for this EDT procedure are i n the results section. T3, TOTAL Routine 02/23/2021 11:00 Results for this EDT procedure are i n the results section. documented in this encounter Results ALPHA 1 ANTITRYPSIN (02/23/2021 11:00 EDT) Pathologist Sig nature Alpha 1 Antitrypsin 124 90 - 200 mg/dL [facility] SERVICES Specimen Blood - Venous blood (substance) Performing Organization Address City/State/ZIP Code Phon e Number [facility] [address] [place] [address] SERVICES T3, TOTAL (02/23/2021 11:00 EDT) Pathologist Sig nature T3, Total 137 97 - 169 ng/dL [facility] SERVICES Specimen Blood - Venous blood (substance) Performing Organization Address City/State/ZIP Code Phon e Number [facility] [address] [place] [address] SERVICES documented in this encounter Visit Diagnoses Not on filedocumented in this encounter Care Teams Paradi Operator Relationship Specialty Start Date End Date Mary Butler PA PCP - General 09/22/17 [address] [place] [address] Max Buenrostro MD 02/25/[address] [place] [phone] documented as of this encounter
--- OUTSIDE RECORDS SUMMARY | 2022-02-27 15:52 | XMS_ITS | Encounter Summary ---
:1980 Author Organization [facility] Address [address] [place] [address] Care Team Providers Name Role Phone Unknown, Provider Primary Care Provider Max Buenrostro MD Unavailable Encounter Details Date Type Department Care Team Description 05/20/2015 Results Only [facility] Charles Foley MD [phone] [place] [address] [address] [place], [place] [address] (Wo rk) Social History Tobacco Use Types Packs/Day Years Used Date Never Assessed Sex Assigned at Date Recorded Not on file documented as of this encounter Plan of Treatment Not on filedocumented as of this encounter Procedures Procedure Name Priority Date/Time Associated Diagnosis Comme nts PAP TEST- RESULT Routine 05/20/2015 0:00 EDT Resu lts for this ONLY procedure are i n the results section. documented in this encounter Results PAP TEST- RESULT ONLY (05/20/2015 0:00 EDT) Pathology Report: CYTOPATHOLOGY REPORT [facility] Reports generated via electronic interface contain altagracia ginal data; SERVICES however they are lacking the format of the original re port. Caution should be taken when reading/interpreting unfo rmatted reports. Name: ? RAYMOND COOLEY ? Accession #: ? [id number] : ? 1980 (Age: 5 2) ??F ?Collect Date: ? 05/20 Location: ? [facility] ? Receive Date : ? 05/23/2015 Provider: ?CHARLES FOLEY MD Copy to: ? Specimen/Source: ? Pap Test, Cervix/Endocervix, ThinPrep Imaging System with manual evaluation Last Menstrual Period: ? 04/29/15 Previous Gynecologic Pathology: ? LILIA I: 08/07, 11/14 ASC-US: 06/08 HPV: + HR HPV 06/08, 08/13 LSIL: 08/13 Treatment History: ? LEEP: 08/07- LILIA I Colposcopy: 11/14 - LILIA I Other: ? Additional clinical information: Paps WNL 04/08, 01/08 ? SPECIMEN ADEQUACY ? Satisfactory for Evaluation - transformation zone component present GENERAL CATEGORIZATION ? Epithelial Cell Abnormality INTERPRETATION ? Squamous Cell Abnormality - Low grade squamous intraepithelial lesion (LSIL). EDUCATIONAL NOTES/RECOMMENDATIONS ? [facility] recommends foll owing ASCCP's 2012 Updated Consensus Guidelines for the Management of Abnormal Cervical Cancer Screening T ests and Cancer Precursors (JLGTD, 2013; 17(5):S1-S27). ??Conse nsus guidelines are available online at www.asccp.org. ? Document reviewed and electronically signed by: ? ALESSANDRO SUN MD ? Report Date: ??05/26/2015 16:57 End of Report Specimen Performing Organization Address City/State/ZIP Code Phon e Number [facility] [address] [place] [address] SERVICES documented in this encounter Visit Diagnoses Not on filedocumented in this encounter Care Teams Mortgage Sales Manager Relationship Specialty Start Date End Date Unknown, Provider, PCP - General 02/25/13 05/31/15 Max Buenrostro MD 02/25/[address] [place] [phone] documented as of this encounter
--- OUTSIDE RECORDS SUMMARY | 2022-02-27 15:52 | XMS_ITS | Encounter Summary ---
:1980 Author Organization [facility] Address [address] [place] [address] Care Team Providers Name Role Phone Max Buenrostro MD Unavailable None, Provider Primary Care Provider Unavailable Encounter Details Date Type Department Care Team Description 01/27/2016 Hospital Encounter [facility]- Kika Unknown, Provider, [facility] [address] [facility] [phone] [place] [address] (Work) [phone] Social History Tobacco Use Types Packs/Day Years [...] every 6 hours. fluticasone (FLONASE) 50 1 [place] by Nasal 0 mcg/Actuation nasal spray route [...] Code Departure Means Destination Home or Self Jail documented in this encounter Plan of Treatment Not on filedocumented as of this encounter Visit Diagnoses Not on filedocumented in this encounter Care Teams Licensed Therapist Relationship Specialty Start Date End Date None, Provider PCP - General 06/22/15 09/21/17 Max Buenrostro MD 02/25/[address] [facility] [address] [place] [phone] documented as of this encounter
--- OUTSIDE RECORDS SUMMARY | 2022-02-27 15:52 | XMS_ITS | Encounter Summary ---
:1980 Author Organization [facility] Address [address] [place] [address] Care Team Providers Name Role Phone Max Buenrostro MD Primary Care Provider Max Buenrostro MD Unavailable Encounter Details Date Type Department Care Team Description 06/17/2015 Results Only [facility]- Charles Elizondo MD [phone] [place] [address] [address] [place], [place] [address] (Wo rk) Social History Tobacco Use Types Packs/Day Years Used Date Former Smoker Alcohol Use Standard Drinks/Week Comments Not Asked 0 (1 standard drink = 0.6 oz pure alcoho l) Sex Assigned at Date Recorded Not on file documented as of this encounter Plan of Treatment Not on filedocumented as of this encounter Procedures Procedure Name Priority Date/Time Associated Diagnosis Comme [facility] SURGICAL PATHOLOGY Routine 06/17/2015 7:41 EDT Re sults for this procedure are i n the results section. documented in this encounter Results SURGICAL PATHOLOGY (06/17/2015 7:41 EDT) Pathology Report: SURGICAL PATHOLOGY REPORT [facility] Reports generated via electronic interface conta in original data; CENTER LABORATORY however they are lacking the format of the original re port. SERVICES Caution should be taken when reading/interpreting unfo rmatted reports. Name: ? NOHEMICHARLEE RAYMOND ? Accession #: ? [id number] ? : ? 1980 (Age: 5 2) ??F ? Collect Date: ? 06/17/2015 ? Location: ? [facility] ? Receive Date: ? 06/18/20 15 ? Provider: CHARLES TORRES MD Copy to: ? Final Pathologic Diagnosis: CERVIX, COLD KNIFE CONIZATION: - ??High grade (LILIA 2) and low-grade (LILIA 1) squ amous intraepithelial lesion. - ??Resection margins negative for high grade squamous intraepithelial lesion. - ??Tubal metaplasia and focal microglandular hyperpla ivy. Document reviewed and electronically signed by: DESI GARCIA MD Report ??Date: 06/22/2015 09:22 By the signature above, the attending physician certif ies that he/she has personally conducted a gross and/or microscopic examin ation of the described specimens and rendered or confirmed the above diagnosi s. Specimen(s) Received: Cervix Clinical History: Persistent LILIA I Gross Description: ? Received in formalin labelled with proper patient identification (initials B, A) and cervix is an unoriented cold knife c one excision of cervix (2.2 x 1.5 cm and excised to a dept h of 1.3 cm). There is an eccentrically located 0.3 cm patent os. One aspect of the specimen is surf aced by stewart-pink ectocervical mucosa, and the endocervical canal is lined by stewart-whi te mucosa. The ectocervical margins are inked black and the endocervi cinthya margins are inked blue. The specimen is radially sectioned in a clockwis e fashion and entirely submitted as 1-6. Dr. Clark 06/20/2015 4:01 PM End of Report Specimen Performing Organization Address City/State/ZIP Code Phon e Number [facility] [address] [place] [address] SERVICES documented in this encounter Visit Diagnoses Not on filedocumented in this encounter Care Teams Slitter Operator Relationship Specialty Start Date End Date Max Buenrostro MD PCP - General 06/01/15 06/21/15 Max Buenrostro MD 02/25/[address] [place] [phone] documented as of this encounter
--- OUTSIDE RECORDS SUMMARY | 2022-02-27 15:52 | XMS_ITS | Encounter Summary ---
:1980 Author Organization [facility] Address [address] [place] [address] Care Team Providers Name Role Phone Max Buenrostro MD Primary Care Provider Reason for Referral Consult, Test and Treat (Routine) - Closed Specialty Diagnoses / Procedures Referred By Contact Refer red To Contact Rehab Therapies Diagnoses [place]le [place] [address] [place] [address] Referral ID Status Reason Start Date Expiration Date Visits V isits Requested Authorized [id number] Closed Specialty 02/10/2010 1 1 Services Required Question Answer Reason for Request: right ankle avulsion fx off distal fibula, ankle sparin and instabilty Comments Rom, strengthening, propreoception exerc ises Reason for Visit Reason Comments Ankle Injury Right ankle sprain.. came he re with Disc from [facility] having unstable issues with foot an d ankle Encounter Details Date Type Department Care Team Description 02/10/2010 Office Visit [facility] Sotero Dick Ankle i njury (Primary Sports Medicine Program Dx) - Jackie Starr [place], [place] [address] Social History Tobacco Use Types Packs/Day Years Used Date Former Smoker Alcohol Use Standard Drinks/Week Comments Not Asked 0 (1 standard drink = 0.6 oz pure alcoho l) Sex Assigned at Date Recorded Not on file documented as of this encounter Last Filed Vital Signs Vital Sign Reading Time Taken Comments Blood Pressure - - Pulse - - Temperature - - Respiratory Rate - - Oxygen Saturation - - Inhaled Oxygen Concentration - - Weight 43.1 kg (95 lb) 02/10/2010 1350 EDT Height 156.2 cm (5' 1.5) 02/10/2010 1350 EDT Body Mass Index 17.66 02/10/2010 1350 EDT documented in this encounter Patient Instructions Patient InstructionsSotero Dick PA-C - 02/10/2010 14:15 EDT [facility] Patient Instructions Ankle Sprain: After Your Visit Your Care Instructions Your ankle hurts because you have stretched or torn ligaments, which connect the bones in your ankle. Your X-rays did not show any broken bones. Ankle sprains may take from 6 weeks to several months to heal. Usually, the more pain and swelling you have, the more severe your ankle sprain is and the longer it will take to heal. You can heal faster and regain strength in your ankle with good home treatment. It is very important to give your ankle time to heal completely, so that you do not easily hurt yourankle again. Follow-up care is a garsia part of your treatment and safety. Be sure to make and go to all appointments, and call your doctor if you are having problems. It???s also a good idea to know your test resultsand keep a list of the medicines you take. How can you care for yourself at home? ?? Prop up your foot on pillows as much as possible for the next 3 days. Try to keep your ankle above the level of your heart. This will help reduce the swelling. Your doctor may give you a splint, a brace, an air stirrup, or another form of ankle support to protect your ankle until it is healed. Wear it as directed while your ankle is healing. Do not remove it unless your doctor tells you to. After your ankle has healed, ask your doctor whether you should wearthe brace when you exercise. Put ice or cold packs on your injured ankle for 10 to 20 minutes at a time. (Put a thin cloth between the ice pack and your skin.) Try to do this every 1 to 2 hours for the next 3 days (when you are awake) or until the swelling goes down. Keep your splint or brace dry. If you were given an elastic bandage, keep it on for the next 24 to 36 hours but no longer. The bandage should be snug but not so tight that it causes numbness or tingling. To rewrap the ankle, begin at the toes and wrap around the ankle in a figure-eight pattern, ending several inches above the ankle. Use crutches until you can walk without pain. Try to bear some weight on your injured ankle while using crutches if you can do so without pain. This helps the ankle heal. Take pain medicines exactly as directed. If the doctor gave you a prescription medicine for pain, take it as prescribed. If you are not taking a prescription pain medicine, ask your doctor if you can take an ogxv-ssu-vcokrjn medicine. Do not take two or more pain medicines at the same time unless the doctor told you to. Many pain medicines have acetaminophen, which is Tylenol. Too much acetaminophen (Tylenol) can be harmful. Do not give aspirin to anyone younger than 20. It has been linked to Nilton syndrome, a serious illness. You may use warm packs after 3 days for 15 to 20 minutes at a time to ease pain. If you have been given ankle exercises to do at home, do them exactly as instructed. These can promote healing and help prevent lasting weakness. When should you call for help? Call your doctor now or seek immediate medical care if: ?? You have increased or severe pain. Your foot is cool or pale or changes color. You have tingling, weakness, or numbness in your toes. Your cast or splint feels too tight. You have signs of a blood clot, such as: Pain in your calf, back of the knee, thigh, or groin. Redness and swelling in your leg or groin. Watch closely for changes in your health, and be sure to contact your doctor if: ?? Your ankle has not improved after 1 week. documented in this encounter Progress Notes Sotero Dick PA-C - 02/10/2010 1421 EDT This office note has been dictated. documented in this encounter Consult Notes Sotero Dick PA-C - 02/15/2010 1208 EDT [facility] [address] [place] [id number] CONSULTATION - 02/10/2010 PROBLEM: Right ankle injury. SUBJECTIVE: The patient states back in early December she stepped off her father's porch, suffering an inversion injury. She was initially seen in the emergency room up in [facility] and x-rays were taken. She was placed in a 3D boot and on crutches and now presents today for our exam and opinion. She is sent here by her primary care provider, Dr Buenrostro, for our consultation. She has tried weaning out of the boot and weightbearing and she suffered another inversion type injury recently aggravated the ankle. She has a sense that it feels unstable. She has no other past medical history of ankle problems. See intake sheet for remaining review of systems and past medical history. OBJECTIVE: The patient is alert and oriented x3, in no obvious distress. Eyes equal and reactive to light. No breathing difficulties. Exam of the ankle reveals minimal edema if any about the lateral malleolus. Her pedal pulses and sensation are intact. She has no pain to high ankle squeeze test, no pain to forefoot squeeze test. No pain into the metatarsals. Most of her tenderness is into the distal fibula and to the anterior talofibular ligament with somewhat of an unstable anterior drawer sign, but symmetric contralaterally. X-rays are visualized that shows a questionable lucency off the distal tip of the fibula consistent with an avulsion-type fracture/ankle sprain. ASSESSMENT: Right ankle distal fibula avulsion fracture/ankle sprain. PLAN: The patient will be placed in an ankle stabilizer. She will be referred for physical therapy to work on range of motion and proprioceptive exercises. She should avoid high impact type activities.We can followup with her again in about 4 weeks to gauge her progress. Electronically Signed by Sotero Dick PA-C 02/15/2010 12:03 Dictated by: Sotero Dick PA-C - Sotero Dick PA-C P - JG Job ID: SM Doc ID: [id number] Ext Doc ID: [id number] cc: documented in this encounter Plan of Treatment Scheduled Referrals Name Type Priority Associated Diagnoses Order S tonie AMB CONSULT Outpatient Referral Routine Ankle Injury Ordered: PHYSICAL THERAPY 02/10/2010 documented as of this encounter Visit Diagnoses Diagnosis Ankle injury - Primary Injury, other and unspecified, knee, leg , ankle, and foot documented in this encounter Historical Medications This list may reflect changes made after this encounter. Medication Sig Dispensed Refills Start Date End Date acetaminophen (TYLENOL) Take 1,000 mg by 0 500 mg tablet mouth every 6 hours. ibuprofen (MOTRIN) 600 mg Take 600 mg by mouth 0 tablet 3 times daily. fluticasone-salmeterol Inhale 1 Puff as 0 (ADVAIR) 250-50 mcg/Dose directed every 12 diskus inhaler hours. fluticasone (FLONASE) 50 1 [place] by Nasal 0 mcg/Actuation nasal spray route daily. zolpidem (AMBIEN) 10 mg Take 10 mg by mouth 0 tablet at bedtime as needed for Sleep. clonazepam (KLONOPIN) 0.5 Take 0.5 mg by mouth 0 10/09/2017 mg tablet 2 times daily. citalopram (CELEXA) 20 mg Take 20 mg by mouth 0 10/09/2017 tablet daily. amphetamine-dextroampheta Take 20 mg by mouth 0 03/10/2010 mine (ADDERALL) [address] steve tablet added in this encounter Care Teams Quantometer Operator Relationship Specialty Start Date End Date Max Buenrostro MD PCP - General 02/09/10 02/24/[address] [facility] [address] [place] [phone] documented as of this encounter
--- OUTSIDE RECORDS SUMMARY | 2022-02-27 15:52 | XMS_ITS | Encounter Summary ---
:1980 Author Organization [facility] Address [address] [place] [address] Care Team Providers Name Role Phone Max Buenrostro MD Unavailable Mary Butler Primary Care Provider Encounter Details Date Type Department Care Team Description 04/30/2018 Results Only [facility]- PRISM Charles Foley MD [phone] [place] [address] [address] [place], [place] [address] (Wo rk) Social History Tobacco [...] Diagnosis Comme nts PAP TEST- RESULT Routine 04/30/2018 0:00 EDT Resu lts for this ONLY procedure are i n the results section. documented in this encounter Results PAP TEST- RESULT ONLY (04/30/2018 0:00 EDT) Pathology Report: CYTOPATHOLOGY REPORT [facility] Reports generated via electronic interface contain altagracia ginal data; SERVICES however they are lacking the format of the original re port. Caution should be taken when reading/interpreting unfo rmatted reports. Name: ? RAYMOND JARRETT ? Accession #: ? [id number] : ? 1980 (Age: [age]) ??F ?Collect Date: ? 2017 Location: ? [facility] ? Receive Date : ? 05/01/2018 Provider: ?CHARLES FOLEY MD Copy to: ? Specimen/Source: ? Pap Test, Vagina, ThinPrep Imaging System with manual evaluation Last Menstrual Period: ? 04/04/16 Previous Gynecologic Pathology: ? ASC-US: 10/16 Treatment History: ? Hysterectomy Yes: TLH/BSO Other: ? Additional clinical information: R87.620, Z90.710 ? SPECIMEN ADEQUACY ? Satisfactory for Evaluation - assessment of transformation zone component not appl icable ( e.g. atrophy, vaginal sample, hysterectomy) GENERAL CATEGORIZATION ? Negative for Intraepithelial Lesion or Malignan cy ? Document reviewed and electronically signed by: ? DAT Boudreaux(ASCP) ? Report Date: ??05/14/2018 15:50 End of Report Specimen Performing Organization Address City/State/ZIP Code Phon e Number [facility] [address] [place] [address] SERVICES documented in this encounter Visit Diagnoses Not on filedocumented in this encounter Care Teams Hospital Nurse Relationship Specialty Start Date End Date Mary Butler PA PCP - General 09/22/17 [address] [place] [address] Max Buenrostro MD 02/25/[address] [place] [address] [place] [phone] documented as of this encounter
--- OUTSIDE RECORDS SUMMARY | 2022-02-27 15:52 | XMS_ITS | Encounter Summary ---
:1980 Author Organization [facility] Address [address] [place] [address] Care Team Providers Name Role Phone Unavailable Primary Care Provider Unavailable Encounter Details Date Type Department Care Team Description 12/10/2005 Hospital Encounter [facility] - Daily, Isabel Castillo, [facility] PIE FILLING MIXER [address] [place] [address] [place], [place] [phone] (Wo rk) Social History Tobacco Use Types Packs/Day Years Used Date Never Assessed Sex Assigned at Date Recorded Not on file documented as of this encounter Discharge Disposition Disposition Code Departure Means Destination Auto Discharge documented in this encounter Plan of Treatment Not on filedocumented as of this encounter Procedures Procedure Name Priority Date/Time Associated Comments Diagnosis PHLEBOTOMY MANAGER US PELVIS 12/12/2005 12:30 Results fo r this TRANSVAGINAL EST procedure are i n the results section. HEPATITIS C AB W Routine 12/10/2005 15:54 Results for this REFLEX TO HCV RNA BY EST procedu re are in PCR the results section. SYPHILIS SERO (RPR) Routine 12/10/2005 15:54 Resu lts for this EST procedure are i n the results section. HIV 1/2 ANTIGEN AND Routine 12/10/2005 15:54 Resu lts for this ANTIBODY, 4TH EST procedure are in GENERATION the results section. TSH Routine 12/10/2005 15:54 Results for this EST procedure are i n the results section. N. GONORRHOEAE Routine 12/10/2005 7:18 Results fo r this AMPLIFIED PROBE EST procedure ar e in the results section. ZZCHLAMYDIA Routine 12/10/2005 7:18 Results for this TRACHOMATIS AMPLIFIED EST proced ure are in PROBE the results section. documented in this encounter Results PHLEBOTOMY MANAGER US PELVIS TRANSVAGINAL (12/12/2005 12:30 EST) Anatomical Region Laterality Modality Other Specimen Narrative [facility] - 04/16/2009 13 :05 EDT PELVIC PiAN/RT.ADN FULLNESS SPOTTING BETWEEN PERIODS PELVIC ULTRASOUND DATE: ??12/12/2005 INDICATION: ??The patient is a 25-year-o ld, para 1 woman with an LMP of December 06, 2005. ??She has had intermit tent right adnexal pain on and off with some occasional spotting since her delivery a little more than a year ago. FINDINGS: ??Transabdominal ultrasound sh ows an anteverted uterus, measuring 8.3 cm sagittally by 3.9 cm AP . ??No adnexal mass is noted transabdominally. ??Endovaginal exam aga in reveals an anteverted uterus with similar measurements. ??Ramires sverse measurement of the uterus is 5.4 cm. ??The endometrial stri pe is very thin throughout, measuring 4 mm. ??A scar is vi sualized and appears consistent with normal scar in the uteru s. ??The cervix has a normal appearance. ??There are no myometrial ab normalities noted. Both ovaries are well visualized. ??The left ovary measures 2.6 x 1.9 x 2.1 cm and has a few small, functional , follicular cysts. ??The right ovary measures 3.3 x 2.1 x 1.9 cm and also has a few functional follicles with no abnormalities. ??There is no free fluid in the cul-de-sac. IMPRESSION: 1. ??Normal gynecologic ultrasound. 2. ??Both ovaries are well visualized. ? ?No abnormalities are noted. 3. ??Of note, on endovaginal ultrasound when the right ovary was pressed, the patient had no discomfort. PLAN: ??The patient is to follow up with Na eDng NP. Procedure Note Sepideh Chaparro MD - 04/16/2009 PELVIC PiAN/RT.ADN FULLNESS SPOTTING BE TWEEN PERIODS PELVIC ULTRASOUND DATE: 12/12/2005 INDICATION: The patient is a 25-year-old , para 1 woman with an LMP of December 06, 2005. She has had intermitte nt right adnexal pain on and off with some occasional spotting since her delivery a little more than a year ago. FINDINGS: Transabdominal ultrasound show s an anteverted uterus, measuring 8.3 cm sagittally by 3.9 cm AP . No adnexal mass is noted transabdominally. Endovaginal exam again reveals an anteverted uterus with similar measurements. Transv erse measurement of the uterus is 5.4 cm. The endometrial stripe is very thin throughout, measuring 4 mm. A scar is visu alized and appears consistent with normal scar in the uteru s. The cervix has a normal appearance. There are no myometrial abno rmalities noted. Both ovaries are well visualized. The le ft ovary measures 2.6 x 1.9 x 2.1 cm and has a few small, functional , follicular cysts. The right ovary measures 3.3 x 2.1 x 1.9 cm and also has a few functional follicles with no abnormalities. There i s no free fluid in the cul-de-sac. IMPRESSION: 1. Normal gynecologic ultrasound. 2. Both ovaries are well visualized. No abnormalities are noted. 3. Of note, on endovaginal ultrasound wh en the right ovary was pressed, the patient had no discomfort. PLAN: The patient is to follow up with Dionte Deng NP. Performing Organization Address [facility] Phon e Number [facility] [address] [facility] [address] [facility] [address] [place], [place] [address] TSH (12/10/2005 15:54 EST) Pathologist Sig nature TSH 0.95 0.35 - 5.50 uIU/ml [facility] Specimen Performing Organization Address City/[facility]/ZIP Code Phon e Number [facility] [address] [place] [address] SERVICES [facility] [address] [place] [address] SYPHILIS SERO (RPR) (12/10/2005 15:54 EST) Pathologist Sig nature Syphilis Sero (RPR) NONREACT. NR Dils [facility] Specimen Performing Organization Address [facility] Phon e Number [facility] [address] [place] [address] SERVICES [facility] [address] [place] [address] HIV ANTIBODY (CHRISTIANO) (12/10/2005 15:54 EST) Pathologist Sig nature HIV 1/2 Antibody NONREACT. NR [facility] Specimen Performing Organization Address [facility] Code Phon e Number [facility] [address] [place] [address] SERVICES [facility] [address] [place] [address] HEPATITIS C ANTIBODY (12/10/2005 15:54 EST) Pathologist Sig nature Hepatitis C Ab Neg [facility] Specimen Performing Organization Address [facility] Code Phon e Number [facility] [address] [place] [address] SERVICES [facility] [address] [place] [address] N. GONORRHOEAE AMPLIFIED PROBE (12/10/2005 7:18 EST) Result No Neisseria [facility] gonorrhoeae DNA LAB detected by deputy coroner investigator mediated amplification. Report Status Final [facility] [id number] LAB Specimen Cervix [facility] Description LAB Specimen Performing Organization Address [facility]/ZIP Code Phon e Number [facility] [address] [place] [address] SERVICES [facility] [address] [place] [address] CHLAMYDIA TRACHOMATIS AMPLIFIED PROBE (12/10/2005 7:18 EST) Specimen Cervix [facility] Description LAB Result No Chlamydia [facility] trachomatis DNA LAB detected by deputy coroner investigator mediated amplification. Report Status Final [facility] [id number] LAB Specimen Performing Organization Address [facility]/ZIP [facility] Phon e Number [facility] [address] [place] [address] SERVICES [facility] [address] [place] [address] documented in this encounter Visit Diagnoses Not on filedocumented in this encounter
--- OUTSIDE RECORDS SUMMARY | 2022-02-27 15:52 | XMS_ITS | Encounter Summary ---
:1980 Author Organization [facility] Address [address] [place] [address] Care Team Providers Name Role Phone Max Buenrostro MD Unavailable None, Provider Primary Care Provider Unavailable Encounter Details Date Type Department Care Team Description 01/27/2016 Results Only [facility]- Charles Elizondo MD [phone] [place] [address] [address] [place], [place] [address] (Wo rk) Social History Tobacco [...] Diagnosis Comme nts PAP TEST- RESULT Routine 01/27/2016 0:00 EDT Resu lts for this ONLY procedure are i n the results section. documented in this encounter Results PAP TEST- RESULT ONLY (01/27/2016 0:00 EDT) Pathology Report: CYTOPATHOLOGY REPORT [facility] Reports generated via electronic interface contain altagracia ginal data; SERVICES however they are lacking the format of the original re port. Caution should be taken when reading/interpreting unfo rmatted reports. Name: ? RAYMOND COOLEY ? Accession #: ? [id number] : ? 1980 (Age: 5 3) ??F ?Collect Date: ? 01/26 Location: ? [facility] ? Receive Date : ? 01/31/2016 Provider: ?CHARLES TORRES MD Copy to: ? Specimen/Source: ? Pap Test, Cervix/Endocervix, ThinPrep Imaging System with manual evaluation Last Menstrual Period: ? 01/27/2016 Hormonal/Contraceptive Status: ? None Previous Gynecologic Pathology: ? LILIA I: 07/2008 LILIA II: 05/2015 LSIL: 07/2014, 10/2014, 04/2015 HPV: HR 07/2014, 10/2014 Treatment History: ? Colposcopy: 10/2014 LEEP: 07/2008 Cone biopsy: 05/2015 ? SPECIMEN ADEQUACY ? Satisfactory for Evaluation - transformation zone component present GENERAL CATEGORIZATION ? Epithelial Cell Abnormality INTERPRETATION ? Squamous Cell Abnormality - Low grade squamous intraepithelial lesion (LSIL). EDUCATIONAL NOTES/RECOMMENDATIONS ? [facility] recommends foll owing ASCCP's 2012 Updated Consensus Guidelines for the Management of Abnormal Cervical Cancer Screening T ests and Cancer Precursors (JLGTD, 2013; 17(5):S1-S27). ??Conse nsus guidelines are available online at www.asccp.org. ? Document reviewed and electronically signed by: ? TOO ALCANTARA MD ? Report Date: ??02/14/2016 12:05 End of Report Specimen Performing Organization Address City/State/ZIP Code Phon e Number [facility] [address] [place] [address] SERVICES documented in this encounter Visit Diagnoses Not on filedocumented in this encounter Care Teams Keyboarding Teacher Relationship Specialty Start Date End Date None, Provider PCP - General 06/22/15 09/21/17 Max Buenrostro MD 02/25/[address] [place] [address] [place] [phone] documented as of this encounter
--- OUTSIDE RECORDS SUMMARY | 2022-02-27 15:52 | XMS_ITS | Encounter Summary ---
:1980 Author Organization [facility] Address [address] [place] [address] Care Team Providers Name Role Phone Max Buenrostro MD Unavailable None, Provider Primary Care Provider Unavailable Encounter Details Date Type Department Care Team Description 04/04/2016 Hospital Encounter [facility]- Kika Unknown, Provider, [facility] [address] [facility] [phone] [place] [address] (Work) [phone] Social History Tobacco Use Types Packs/Day Years [...] every 6 hours. fluticasone (FLONASE) 50 1 [place] by Nasal 0 mcg/Actuation nasal spray route [...] on filedocumented in this encounter Care Teams Insurance Follow Up Specialist Relationship Specialty Start Date End Date None, Provider PCP - General 06/22/15 09/21/17 Max Buenrostro MD 02/25/[address] [facility] [address] [place] [phone] documented as of this encounter
--- OUTSIDE RECORDS SUMMARY | 2022-02-27 15:52 | XMS_ITS | Encounter Summary ---
:1980 Author Organization [facility] Address [address] [place] [address] Care Team Providers Name Role Phone Max Buenrostro MD Unavailable Mary Butler Primary Care Provider Encounter Details Date Type Department Care Team Description 08/24/2020 Lab Requisition [facility] Outr Resulting Lab, Pathology & Laboratory Provider [facility] [address] [place] [address] Social History Tobacco Use Types Packs/Day Years Used Date Former Smoker Alcohol Use Standard Drinks/Week Comments Yes 0 (1 standard drink = 0.6 oz pure alcoho l) Sex Assigned at Date Recorded Not on file documented as of this encounter Plan of Treatment Scheduled Orders Name Type Priority Associated Diagnoses Order S chedule PAP TEST Pathology Routine Ordered: 2019 documented as of this encounter Visit Diagnoses Not on filedocumented in this encounter Care Teams Intervention Specialist Relationship Specialty Start Date End Date Mary Butler PA PCP - General 09/22/17 [address] [place] [address] Max Buenrostro MD 02/25/[address] [place] [address] [phone] documented as of this encounter
[2022-02-27 16:43] LABS: COVID-19 PCR Negative (Negative)
[2022-02-27 23:19] LABS: Source Nasopharynx
== END 2022-02-27 15:49 | disposition home or self-care (01) ==
LOC: LBN 15:48
PROVIDERS: PCP Physician Assistant Medical; Visit Provider Speech-Language Pathologist
DX: Z20.822 Contact with and (suspected) exposure to COVID-19 (principal); Z01.818 Encounter for other preprocedural examination
CPT/HCPCS: 87635; U0005

== ENCOUNTER → 2022-02-28 03:21 | Outpatient (CLI) | payer MEDICARE, MEDICAID, SELFPAY ==
--- NOTE | 2022-02-28 14:07 | ST.MBS_ITS ---
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 Thompson) indicate normal pulmonary function. Previously recommended for VFSE/MBSS by Dr. Justice in 2019, which had not taken place. Also has hx of goiter in neck in 2019 which previously had caused difficulty with swallowing. PMHx: ?? ? Localized enlarged lymph nodes . ? Psychoactive substance abuse. ? Depressive disorder . ? Attention deficit hyperactivity disorder. ? Migraine Migraine with aura . ? Raynaud's disease. ? Allergic rhinitis . ? Asthma. ? Mild intermittent asthma. ? Cervical intraepithelial neoplasm grade 2. ? Backache . ? Tremor . ? Ocalized enlarged lymph nodes. ? Abdominal pain. ? Contusion of back. ? Exposure to viral hepatitis . ? High risk heterosexual behavior . ? Pelvic and perineal pain. ? Lesion of oral mucosa . ? Amblyopia of right eye. ? Surgical History Tonsilectomy/Adenoids? Hernia repair? LEEP with IUD removal 08/16/08 Total laproscopic hysterectomy 04/04/2016 Conization of cervix 06/17/2015 Diag laparo separate proc 02/25/2013 Rhinoplasty 06/26/2010 delivery, again on 08/15/2011 09/30/2004 ? Family History Father: unknown Mother: alive Adopted famiy hx of lung cancer and thyroid issues. Imaging / Testin07/2019: ENT Evaluation/ Laryngoscopy (Dr. Justice) Flexible Laryngoscopy:?Transnasal flexible laryngoscopy was performed. This revealed a normal appearing nasopharynx, with normal simone. There are no masses or lesions. The oropharynx, vallecula, epiglottis, supraglottis, glottis, subgl ottis, pryriform sinuses and hypopharynx are within normal limits. There are prominent lingual tonsils equal bilaterally. True vocal cord motion is bilaterally symmetric, and preserved with excellent excursion and midline approximation.? Re: Oropharyngeal dysphagia? ENT recommended FL BARIUM SWALLOW WITH SPEECH (Ordered for 08/03/2019) There is nothing on flexible laryngoscopy on physical exam today to suggest this etiology other than possible?muscle tension of the neck. 01/25/2021: CT Chest Findings: small R>L pleural effusions, noted per Dr. Ann / [facility] [place]: [facility] No imaging performed; clinical visit with Dr. Ann / [facility] [place]21: Pulmonary Function Testing w Dr. Thompson / [facility] Impression Normal pulmonary function test SUBJECTIVE: Patient arrives to fluoro suite for MBS this date, demonstrates heightened gag reflex with provided Varibar contrast trials, with need to expectorate bolus during multiple trials. Patient does indicate her reflux symptoms have recently been worse, and does endorse pharyngeal globus outside of po trials this date. IMPRESSIONS: Swallow safety is preserved; swallow efficiency is impaired. Mild chronic oropharyngeal dysphagia, characterized by physiologic deficits as outlined below, and resulting in brief penetration of less viscous consistencies (liquids>solids), occasional trace pharyngeal residue (valleculae>pyriform sinus). Patient appears to be at low-moderate risk for potential aspiration PNA and/or pulmonary compromise and low risk for malnutrition, dehydration. Diet modification is not indicated; non-oral nutrition is not indicated. Swallow prognosis is good, given +age, +motivation to participate in skilled therapy, - history of Raynaud's disease/dyspnea/persistent cough/difficulties of thyroid, smoking history, and pending patient/caregiver training in risk management as outlined, including use of trialed compensatory strategies as outlined. Patient appears to be a good candidate for behavioral swallow rehabilitation, and has a follow up VOCATIONAL REHABILITATION CONSULTANT appointment scheduled for 03/05. Specialist referrals: N/A Ancillary tests: N/A Diet texture recommendation: IDDSI Level [x] 7-Regular Solids [x] 0-Thin Liquids Please see further details at [email or web address] Diet texture modification is per patient's preference; please adjust diet textures at patient's discretion & collaboration with care team. Risk Management: [x] Behavioral reflux precautions, including upright position during + 90 mins after meals. [x] Small bites, approx [id number] / Small sips 10-15mL [x] Alternate solids/liquids as able Control risk factors for aspiration pneumonia via (a) thorough oral hygiene & (b) maintaining physical mobility as tolerated PLAN: Therapy: Recommend subsequent outpatient session with VOCATIONAL REHABILITATION CONSULTANT to review results of today's exam and develop treatment plan as appropriate. May consider: - Continued guidance re: respiratory retraining, behavioral modifications to support reflux symptom management - For delayed swallow initiation: carbonated beverages, flavor/temperature/thermal-tactile modifications, sour bolus, suck-swallow technique Direct oropharyngeal exercise - JOAR - CTAR - Shaker (Head-Lift) - Falsetto Pitch [place] - effortful swallow - super supraglottic swallow - Bhavana Goal: TBD pending patient/caregiver interview Follow-up exam: N/A Thank you for allowing me to take part in this patient's care. Please feel free to contact me with any questions/concerns. Elida Fulton MA CCC-VOCATIONAL REHABILITATION CONSULTANT Speech Language Pathologist [phone] OBJECTIVE: Videofluoroscopic Swallow Evaluation (VFSE/MBSS) was conducted in the lateral and [id number] projections by Speech-Language Pathologist, in collaboration with Radiologist, to evaluate oropharyngeal swallow function. Anatomic view under fluoroscopy: [x] WFL PO Barium Contrast Trials Oral barium water-soluble contrast was administered as follows: IDDSI Level 0 Varibar thin liquid (40% w/v) IDDSI Level 2 Varibar nectar thick/mildly thick liquid (40% w/v) IDDSI Level 3 Varibar thin honey/liquidised/moderately-thick (40% w/v) IDDSI Level 4 Varibar pudding/pureed/extremely thick (40% w/v) IDDSI Level 7 Regular Solid: 1/2 lamin cracker coated in 3 mL Varibar pudding PHYSIOLOGIC FINDINGS (1) MBSImP Component Scores: COMPONENT Scale SCORE 1 Lip closure (0-4) 0 Resulted in no labial escape 2 Hold Position (0-3) 1 Allowed bolus escape to lateral buccal cavity/floor of mouth 3 Bolus Preparation (0-4) 0 Resulted in timely and efficient chewing and mashi ng 4 Bolus Transport (0-4) 0 Was with brisk tongue motion 5 Oral Residue (0-4) 1 Was a trace, lining oral structures 6 Swallow Initiation (0-4) 3 Occurred when the bolus head was in the pyriform sinuses Occasional swallow initiation noted at level of vallecular space (no change noted with modified volume / consistency) 7 Soft Palate Elevation (0-4) 0 Resulted in no bolus between soft palate and t he pharyngeal wall 8 Laryngeal Elevation (0-3) 1 Was decreased with partial superior movement of thyroid cartilage/partial approximation of arytenoids to epiglottic petiole 9 Anterior Hyoid Motion (0-2) 1 Demonstrated partial anterior movement 10 Epiglottic Movement (0-2) 0 Resulted in complete inversion 11 Laryngeal Closure (0-2) 1 Was incomplete with narrow a column of air/contra st in laryngeal vestibule 12 Pharyngeal Stripping Wave (0-2) 0 Was present and complete 13 Pharyngeal Contraction (0-3) 3 Produced bilateral Bulging 14 PES Opening (0-3) 1 Demonstrated partial distension/partial duration, with partial obstruction of flow 15 Tongue Base Retraction (0-4) 1 Allowed a trace column of contrast or air between tongue base and pharyngeal wall 16 Pharyngeal Residue (0-4) 1 Showed a trace within or on pharyngeal structure s 17 Esophageal Clearance (0-4) 0 Was complete, with only a coating of contrast, if any This study was performed for interpretation only of the oropharyngeal and pharyngoesophageal domains of swallowing, and is not intended to diagnose any other radiologic abnormalities or substitute for a formal esophagram study. Results: COMPONENT Scale SCORE 1 Oral Score (0-18) 4 2 Pharyngeal Score (0-29) 7 3 Esophageal Score (0-4) 0 MBSImP Component Scores: COMPONENT Scale SCORE 1 Lip closure (0-4) 0 Resulted in no labial escape 2 Hold Position (0-3) 1 Allowed bolus escape to lateral buccal cavity/floor of mouth 3 Bolus Preparation (0-4) 0 Resulted in timely and efficient chewing and mashi ng 4 Bolus Transport (0-4) 0 Was with brisk tongue motion 5 Oral Residue (0-4) 1 Was a trace, lining oral structures 6 Swallow Initiation (0-4) 3 Occurred when the bolus head was in the pyriform sinuses 7 Soft Palate Elevation (0-4) 0 Resulted in no bolus between soft palate and t he pharyngeal wall 8 Laryngeal Elevation (0-3) 1 Was decreased with partial superior movement of thyroid cartilage/partial approximation of arytenoids to epiglottic petiole 9 Anterior Hyoid Motion (0-2) 1 Demonstrated partial anterior movement 10 Epiglottic Movement (0-2) 0 Resulted in complete inversion 11 Laryngeal Closure (0-2) 1 Was incomplete with narrow a column of air/contra st in laryngeal vestibule 12 Pharyngeal Stripping Wave (0-2) 0 Was present and complete 13 Pharyngeal Contraction (0-3) 3 Produced bilateral Bulging 14 PES Opening (0-3) 1 Demonstrated partial distension/partial duration, with partial obstruction of flow 15 Tongue Base Retraction (0-4) 1 Allowed a trace column of contrast or air between tongue base and pharyngeal wall 16 Pharyngeal Residue (0-4) 1 Showed a trace within or on pharyngeal structure s 17 Esophageal Clearance (0-4) 0 Was complete, with only a coating of contrast, if any Results: COMPONENT Scale SCORE 1 Oral Score (0-18) 4 2 Pharyngeal Score (0-29) 7 3 Esophageal Score (0-4) 0 Penetration-Aspiration Scale: COMPONENT Scale SCORE 1 Thin liquid (1-8) 2 Contrast entered the airway, remained above the vocal fo l ds, and was ejected from the airway. 2 Hoover thick (1-8) 2 Contrast entered the airway, remained above the vocal folds, and was ejected from the airway. 3 Thin-Honey thick (1-8) 2 Contrast entered the airway, remained above the voc al folds, and was ejected from the airway. DANIEL: (2) Severity [x] LEVEL 7 - Full PO: normal diet - Normal in all situations Trialed Compensatory Strategies & Outcome: Maneuvers Successful/Unsuccessful (+/-) [x] Saliva swallow x1-2 effective in clearing oral and/or trace pharyngeal residue Bolus Modifications Successful/Unsuccessful (+/-) [x] Reduced Volume (-) does not appear to create benefit [x] Increased Viscosity (-) does not appear to create benefit Coding CPT Codes MOTION FLUOROSCOPY/SWALLOW - [id number] ([id number]) 1: Amrit Virgen al. ?MBS measurement tool for swallow impairment--MBSImp: establishing a standard.? Dysphagia vol. 23,4 (2008): 392-405. doi:10.1007/o52215-487-1427-5 2: The Dysphagia Outcome and Severity Scale is a 7-point scale developed to systematically rate the functional severity of dysphagia based on objective assessment and make recommendations for diet level, independence level, and type of nutrition.
--- NOTE | 2022-02-28 14:30 | DI.RAD_ITS ---
Exam(s) RF MODIFIED SPEECH BA SWALLOW EXAM: RF MODIFIED SPEECH BA SWALLOW CLINICAL HISTORY: DYSPHAGIA, R13.10; DIFFICULTY SWALLOWING TECHNIQUE: 2D and realtime digital imaging was performed. COMPARISON: No exams were available for comparison FINDINGS: Fluoroscopy was utilized for modified barium swallow. Please see the speech pathologist's report. IMPRESSION: RADIATION DOSE DELIVERED: william Kilpatrick=4.02 mGy Total DLP
[2022-02-28] MEDS: Barium Sulfate Oral Paste 40% W/V 230 ML TUBE PO (15:15)
[2022-02-28] MEDS: Barium Sulfate 40% W/V 240 ML BTL PO (15:17)
[2022-02-28] MEDS: Barium Sulfate 40% W/V 1500 CPS 250 ML BTL PO (15:18)
[2022-02-28] MEDS: Barium Sulfate 81% w/w for Oral Suspension 148 GM BTL PO (15:19)
== END ==
PROVIDERS: PCP Physician Assistant Medical; Visit Provider Physician Assistant Medical
DX: R13.12 Dysphagia, oropharyngeal phase (principal)
CPT/HCPCS: 92526; 74221